=== PATIENT | male | born 1940 | race African-American/Black ===

== ENCOUNTER 2016-08-09 17:37 | Inpatient (IN) ==
[2016-08-09] MEDS ORDERED: SODIUM CHLORIDE 0.9% 500 ML IV STA (18:41)
[2016-08-09] MEDS ORDERED: ONDANSETRON 4 MG/2 ML VIAL IV STA (18:41)
[2016-08-09] MEDS ORDERED: PANTOPRAZOLE 40 MG VIAL IV STA (18:41)
--- NOTE | 2016-08-09 18:46 | EKG Report ---
Stationary ECG Study [facility] ER Test Date: 08/09/2016 6:11:18 PM Pat Name: ALYSSA RIVERA Department: Room: Gender: M Director Online [employer]: : 1940 Requested by: Kai Rodriguez Order Number: [id number] Reading MD: JOVANY ADAMS Intervals [place] Rate: 120 P: 66 ME: 173 QRS: 56 QRSD: 101 T: 79 QT: 342 QTc: 413 Interpretive Statements SINUS TACHYCARDIA MODERATE VOLTAGE CRITERIA FOR LVH Electronically Signed On 08-09-16 20:45:04 FLORAL DECORATOR by JOVANY ADAMS [email or web address]
[2016-08-09 18:49] LABS: Basophils % 0.4 % (0.0-0.8); Eosinophils % 0.2 % (0.00-10.9); Hematocrit 31.9 VOL% (42.0-52.0); Hemoglobin 10.7 GM/DL (14.0-18.0); Immature Granulocytes % 0.4 %; Immature Granulocytes Absolute 0.02 #; Lymphocytes # 1.9 10*3/uL (1.4-4.0); Lymphocytes % 35.1 % (21.2-54.2); Mean Corpuscular HGB Conc 33.5 GM/DL (32-36); Mean Corpuscular Hemoglobin 28 PG (27-34); Mean Corpuscular Volume 82.6 FL (87-102); Mean Platelet Volume 10.6 FL (9.6-12.0); Monocytes # 0.5 10*3/uL (0.11-0.8); Monocytes % 9.2 % (1.7-12.7); Neutrophils % 54.7 % (38.7-73.9); Platelet Count 282 T/CUMM (130-400); Red Blood Count 3.86 MC/CUMM (3.8-5.5); Red Cell Distribution Width 13.1 % (9.3-17.3); White Blood Count 5.5 T/CUMM (4-12)
[2016-08-09] MEDS ORDERED: ONDANSETRON 4 MG/2 ML VIAL ONE (18:49)
[2016-08-09] MEDS ORDERED: PANTOPRAZOLE 40 MG VIAL IV ONE (18:49)
--- NOTE | 2016-08-09 18:53 | Emergency Department Note ---
Jamil Lopez Brittany, am scribing for, and in the presence of, Kai Gonzalez MD 18:48. Lisa Lopez Phillip K, MD, personally performed the services described in this documentation, ascribed by Miesha Negron in my presence, and it is both accurate and complete [id number] . Arrival - Arrival ED Nursing Triage Note: SOB, ONSET LAST NIGHT ALSO HAVING ABD PAIN, PT HAS INDWELLING MACIEL DUE TO ENLARGED PROSTATE. PT TENDER OVER ENTIRE ABDOMEN Mode of Arrival: Wheelchair Limitations: No Limitations Source: Patient - History of Present Illness Onset (ago): day(s) (Started last night) Consistency: constant Severity: moderate <Kai Gonzalez - Last Filed: 08/09/16 18:53> <Carlton Mcpherson - Last Filed: 08/09/16 20:41> - Arrival Chief Complaint: Abdominal / Flank Pain Stated Complaint: KIDNEY BAG BURST Time Seen by Provider: 08/09/16 18:32 - History of Present Illness HPI Narrative: This is a 76 y/o black male,who presents to the ED with c/o abd pain which started last night. He states he has been nauseated but denies vomiting. He denies a fever, but notes chills. He has had a sore throat, mild cough and dyspnea with this. He states his last BM was 2 days ago. He states last week he was seen at [facility] and had an EGD preformed which was negative. He states he has had abd surgery for ulcers and a hernia. He has had a cholecystectomy, but no appendectomy. Pt has no other complaints/pain in the ED at this time. Pt has a PMHx of CHF, CAD, HTN, NIDDM, thyroid disorder, COPD, renal failure, prostate problems, and back/neck problems. Pt has had a cardiac cath with stents, hernia repair, abd surgery, and cholectstectomy. Pt has a family medical Hx of cancer, diabetes, HTN, and stroke. Pt denies a social Hx. (Miesha Negron) This is a 76 y/o black male,who presents to the ED with c/o abd pain which started last night. He states he has been nauseated but denies vomiting. He denies a fever, but notes chills. He has had a sore throat, mild cough and dyspnea with this. He states his last BM was 2 days ago. He states last week he was seen at [facility] and had an EGD preformed which was negative. He states he has had abd surgery for ulcers and a hernia. He has had a cholecystectomy, but no appendectomy. Pt has no other complaints/pain in the ED at this time. Pt has a PMHx of CHF, CAD, HTN, NIDDM, thyroid disorder, COPD, renal failure, prostate problems, and back/neck problems. Pt has had a cardiac cath with stents, hernia repair, abd surgery, and cholectstectomy. Pt has a family medical Hx of cancer, diabetes, HTN, and stroke. Pt denies a social Hx. (Kai Gonzalez) Allergies/Adverse Reactions: Allergies Allergy/AdvReac Type Severity Reaction Status Date / Time No Known Allergies Allergy Verified 08/09/16 17:56 Home Medications: Home Medications Medication Instructions Recorded Confirmed Type Aspirin [Ecotrin] 81 mg PO QAM 11/17/15 08/09/16 History Levothyroxine Tab [Synthroid Tab] 50 mcg PO DAILY 11/17/15 08/09/16 History Mirtazapine 7.5 mg PO BEDTIME 04/19/16 08/09/16 History miSOPROStol [Misoprostol] 200 mcg PO QID 04/19/16 08/09/16 History Insulin NPH [HumuLIN N] 15 unit SUBCUT BID W/MEALS 05/01/16 08/09/16 History cloNIDine TAB [Catapres Tab] 0.1 mg PO BID 05/01/16 08/09/16 History hydrALAZINE TAB [Apresoline Tab] 100 mg PO TID 05/01/16 08/09/16 History Tamsulosin [Flomax] 0.4 mg PO BID #60 capsule 05/03/16 08/09/16 Rx Pantoprazole Tab [Protonix Tab] 40 mg PO DAILY #30 tablet 05/25/16 08/09/16 Rx Benzonatate [Benzonatate] 100 mg PO TID PRN 08/05/16 08/09/16 History Ciprofloxacin Tab [Cipro Tab] 500 mg PO BID #14 tablet 08/05/16 08/09/16 Rx Furosemide [Furosemide] 40 mg PO DAILY 08/05/16 08/09/16 History LORazepam TAB [Ativan Tab] 0.5 mg PO BID #10 tablet 08/05/16 08/09/16 Rx Lisinopril [Lisinopril] 20 mg PO DAILY 08/05/16 08/09/16 History Nitroglycerin [Nitrostat] 0.3 mg SL Q5M PRN 08/05/16 08/09/16 History Review of System - Review of System 12 point system: reviewed and no additional remarkable complaints except as stated - Review of System Constitutional: Present: chills. Absent: fever Respiratory: Present: cough (Mild cough) Cardiovascular: Present: other (Dyspnea) Gastrointestinal: Present: abdominal pain, nausea, constipation. 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 urinary retention) Genitourinary: History of: Prostate Problems (BPH) Gastrointestinal: History of: Hemorrhoids Musculoskeletal: History of: Back/Neck Problems (back pain) Other: History of: Eczema (face) - Surgical History Cardiac Surgeries: Sugical HX of: Cardiac Catheterization Abdominal Surgeries: Surgical HX of: Abdominal Surgery (exploratory lap 2015), Cholecystectomy (2015) - Family History Family History: Reports;: Family Cancer, Family Diabetes (mother type 2), Family Hypertension (mother), Family Stroke (mother) - Social History Smoking Status: Never smoker <Kai Gonzalez - Last Filed: 08/09/16 18:53> Exam - General General appearance: alert, in distress - Head Head exam: Present: atraumatic - Eye Eye exam: Present: normal appearance, PERRL, EOMI - ENT ENT exam: Present: normal exam, TM's normal bilaterally - Neck Neck exam: Present: normal inspection - Chest Chest inspection: Present: normal inspection - Respiratory Respiratory exam: Present: normal lung sounds bilaterally, other (increased respiratory rate). Absent: rales - Cardiovascular Cardiovascular exam: Present: normal rhythm, tachycardia. Absent: murmur, rubs - Abdominal Exam Abdominal exam: Present: soft, tenderness (left upper and lower quadrant), rebound, normal bowel sounds. Absent: distention, guarding - Rectal Exam Rectal exam: Present: heme (-) stool - Extremities Exam Extremities exam: Present: normal inspection - Back Exam Back exam: Present: normal inspection - Neurological Exam Neurological exam: Present: alert, oriented X3, CN II-XII intact. Absent: motor sensory deficit - Psychiatric Psychiatric exam: Present: normal affect, normal mood - Skin Skin exam: Present: warm, dry <Kai Gonzalez - Last Filed: 08/09/16 18:53> Vital Signs: Vital Signs Temperature 98.3 F 08/09/16 18:15 Pulse Rate 123 H 08/09/16 18:15 Respiratory Rate 32 H 08/09/16 18:15 Blood Pressure 125/91 08/09/16 18:15 O2 Sat by Pulse Oximetry 99 08/09/16 17:52 Course <Kai Gonzalez - Last Filed: 08/09/16 18:53> - Consultations Time: 20:33 <Carlton Mcpherson - Last Filed: 08/09/16 20:41> Course Narrative: Patient signed out to Dr. Mcpherson. (Kai Gonzalez) - Consultations Consultation #1: Dr. Rachel Rodriguez will evaluate and admit the patient to Dr. Oleg herring. ( Carlton Mcpherson) Results - Labs CBC & BMP: 08/09/16 18:16 Lab Results: I have reviewed the patients labs <Kai Gonzalez - Last Filed: 08/09/16 18:53> - Labs CBC & BMP: 08/09/16 18:16 08/09/16 18:16 Lab Results: I have reviewed the patients labs <Carlton Mcpherson - Last Filed: 08/09/16 20:41> - Labs Labs: Lab Results WBC 5.5 T/CUMM (4-12) 08/09/16 18:16 RBC 3.86 MC/CUMM (3.8-5.5) 08/09/16 18:16 Hgb 10.7 GM/DL (14.0-18.0) L 08/09/16 18:16 Hct 31.9 VOL% (42.0-52.0) L 08/09/16 18:16 MCV 82.6 FL (87-102) L 08/09/16 18:16 MCH 28 PG (27-34) 08/09/16 18:16 MCHC 33.5 GM/DL (32-36) 08/09/16 18:16 RDW 13.1 % (9.3-17.3) 08/09/16 18:16 Plt Count 282 T/CUMM (130-400) 08/09/16 18:16 MPV 10.6 FL (9.6-12.0) 08/09/16 18:16 Neut % (Auto) 54.7 % (38.7-73.9) 08/09/16 18:16 Lymph % (Auto) 35.1 % (21.2-54.2) 08/09/16 18:16 [place] % (Auto) 9.2 % (1.7-12.7) 08/09/16 18:16 Eos % (Auto) 0.2 % (0.00-10.9) 08/09/16 18:16 Baso % (Auto) 0.4 % (0.0-0.8) 08/09/16 18:16 Neut # (Auto) 3.0 10*3/uL (1.4-7.4) 08/09/16 18:16 Lymph # (Auto) 1.9 10*3/uL (1.4-4.0) 08/09/16 18:16 [place] # (Auto) 0.5 10*3/uL (0.11-0.8) 08/09/16 18:16 Eos # (Auto) 0.0 10*3/uL (0.0-0.87) 08/09/16 18:16 Baso # (Auto) 0.0 10*3/uL (0.0-0.2) 08/09/16 18:16 Immature Gran % 0.4 % 08/09/16 18:16 Nucleated RBC % 0.0 /100WBC 08/09/16 18:16 Immature Gran # 0.02 # 08/09/16 18:16 Nucleated RBCs # 0.00 10*3/uL 08/09/16 18:16 Sodium 127 MMOL/L (136-145) L 08/09/16 18:16 Potassium 3.9 MMOL/L (3.5-5.1) 08/09/16 18:16 Chloride 97 MMOL/L (98-107) L 08/09/16 18:16 Carbon Dioxide 15 MMOL/L (21-32) L 08/09/16 18:16 Anion Gap 18.9 MMOL/L (5.0-15.0) H 08/09/16 18:16 BUN 39 MG/DL (7-18) H 08/09/16 18:16 Creatinine 3.20 MG/DL (0.70-1.30) H 08/09/16 18:16 GFR Calculation 21 ML/MIN 08/09/16 18:16 BUN/Creatinine Ratio 12.00 RATIO (6.00-20.00) 08/09/16 18:16 Glucose 320 MG/DL (74-106) H 08/09/16 18:16 Calculated Osmolality 275.2 MOS/KG (273-304) 08/09/16 18:16 Calcium 9.0 MG/DL (8.5-10.1) 08/09/16 18:16 Magnesium 1.6 MG/DL (1.8-2.4) L 08/09/16 18:16 Total Bilirubin 0.60 MG/DL (0.2-1.0) 08/09/16 18:16 AST 13 U/L (0-37) 08/09/16 18:16 ALT 12 U/L (16-61) L 08/09/16 18:16 Alkaline Phosphatase 96 U/L (45-117) 08/09/16 18:16 Total Protein 6.8 G/DL (6.4-8.3) 08/09/16 18:16 Albumin 3.6 G/DL (3.4-5.0) 08/09/16 18:16 Globulin 3.2 G/DL (2.3-3.5) 08/09/16 18:16 Albumin/Globulin Ratio 1.1 RATIO (1.1-2.2) 08/09/16 18:16 Lipase 397.0 U/L (73-393) H 08/09/16 18:16 Urine Color Yellow (Yellow) 08/09/16 18:16 Urine Appearance Cloudy (Clear) 08/09/16 18:16 Urine pH 5.0 (4.5-8.0) 08/09/16 18:16 Ur Specific [place] 1.004 (1.001-1.035) 08/09/16 18:16 Urine Protein 30 MG/DL 08/09/16 18:16 Urine Glucose (UA) Negative mg/dL (Negative) 08/09/16 18:16 Urine Ketones Negative mg/dL (Negative) 08/09/16 18:16 Urine Blood Large mg/dL (Negative) 08/09/16 18:16 Urine Nitrate Negative (Negative) 08/09/16 18:16 Urine Bilirubin Negative mg/dL (Negative) 08/09/16 18:16 Urine Urobilinogen < 2.0 EU/DL (0.2-1.0) H 08/09/16 18:16 Urine Leukocytes Large [place]/ul (Negative) H 08/09/16 18:16 Urine RBC 83 /HPF (0-4) 08/09/16 18:16 Urine WBC 127 /HPF (0-6) 08/09/16 18:16 Urine WBC Clumps Many /HPF (<1) 08/09/16 18:16 Urine Bacteria Few /HPF (Few) 08/09/16 18:16 Ur Culture Indicated? Results to follow 08/09/16 18:16 (Carlton Mcpherson) Disposition <Kai Gonzalez - Last Filed: 08/09/16 18:53> Case discussed with: patient, patient's family Time of Disposition: 20:39 <Carlton Mcpherson - Last Filed: 08/09/16 20:41> Clinical Impression: BPH (benign prostatic hypertrophy) with urinary retention, Chronic kidney disease, stage III (moderate), Diabetes mellitus, Congestive heart failure, Cystitis Disposition: Still a Patient Condition: Stable
[2016-08-09 18:57] LABS: Apearance,Urine CLOUDY (Clear); Bacteria,Urine Few /HPF (Few); Bilirubin,Urine Negative (Negative); Blood, Urine Large mg/dL (Negative); Glucose,Urine (UA) Negative (Negative); Ketones,Urine Negative (Negative); Nitrite,Urine Negative (Negative); Protein,Urine 30 MG/DL; RBC,Urine 83 /HPF (0-4); Urine Color Yellow (Yellow); Urine Specific Gravity 1.004 (1.001-1.035); Urine Urobilinogen < 2.0 EU/DL (0.2-1.0); WBC,Urine 127 /HPF (0-6)
[2016-08-09 19:01] LABS: Albumin 3.6 G/DL (3.4-5.0); Bilirubin,Total 0.6 MG/DL (0.2-1.0); Magnesium 1.6 MG/DL (1.8-2.4); Osmolality,Calculated 275.2 MOS/KG (273-304); Potassium 3.9 MMOL/L (3.5-5.1); Total Protein 6.8 G/DL (6.4-8.3)
--- NOTE | 2016-08-09 20:01 | CT Report ---
Referring physician: Carlton Mcpherson EXAM: CT abdomen and pelvis without contrast DATE: August 09, 2016 COMPARISON: CT abdomen and pelvis August 05, 2016 and May 10, 2016 REASON: Generalized abdominal pain with nausea TECHNIQUE: Axial images of the abdomen and pelvis were obtained without the use of contrast. Coronal and sagittal reformatted images were also provided. Total DLP is 287.7 mGy*cm. FINDINGS: Lower thorax: Density is seen at the mitral valve and may represent calcification or a surgical device. There are also surgical clips at the gastroesophageal junction and a small hiatal hernia. A 0.2 cm nodule is again seen at the posterior basal portion of the left lower lobe on image 2. It is stable and favored to be benign. ABDOMEN: Liver: There are few calcified granulomas within the liver. No suspicious hepatic lesion is seen on this noncontrast study. Gallbladder and bile ducts: The patient is status post cholecystectomy. The common bile duct is largely obscured. There is minimal prominence of the intrahepatic bile ducts, which could be related to the cholecystectomy status. Correlation with liver function studies would be helpful. Pancreas: Unremarkable. Spleen: Unremarkable. Adrenals: There is nonspecific mild stable thickening of the adrenal glands. Kidneys and ureters: No hydronephrosis is present. There is a 0.3 cm nonobstructing stone at the lower pole of the left kidney. No ureteral calculi are identified. PELVIS: Bladder: A Pond catheter is again present. There is mild diffuse bladder wall thickening. This could be secondary to poor distention, cystitis or chronic bladder obstruction. The degree of thickening is less prominent, but this could be related to differences in bladder distention. Reproductive: The prostate is again enlarged. ABDOMEN AND PELVIS: Bowel: There is no evidence of bowel obstruction, and no definite bowel inflammation is seen. On the prior study of August 05, 2016, there were mildly prominent loops of proximal small bowel, but this is not seen today. Appendix: The appendix is normal in size, and there is no evidence of appendicitis. Vasculature: The abdominal aorta is slightly ectatic but stable. There is also mild to moderate scattered calcified plaque at the arteries. Peritoneum: No free air or ascites is seen. Lymph nodes: No suspicious adenopathy is seen. Abdominal/pelvic wall: There is mild anasarca, and surgical scarring is suspected near the umbilicus. There is also minimally prominent fat within the inguinal canals bilaterally. Bones: There is degenerative change at the spine. No acute osseous process is seen. IMPRESSION: 1. There is mild diffuse bladder wall thickening, which could represent cystitis, poor distention or chronic bladder outlet obstruction. The degree of bladder wall thickening is less prominent today, but this could be related to differences in bladder distention. 2. Prostamegaly. 3. Small nonobstructing left renal calculus. 4. The intrahepatic bile ducts are minimally prominent but stable. This is likely related to cholecystectomy status, but correlation with liver function studies would be helpful. The CT exam was performed using one or more of the following dose reduction techniques: Automated exposure control and adjustment of the mA and/or kV according to patient size. PROCEDURE INTERPRETED AT [facility] DEPARTMENT OF RADIOLOGY Final Report Signed by: Dr. Lalita Bermudez
[2016-08-09] MEDS ORDERED: MORPHINE 2 MG/1 ML SYRINGE IV PRN (20:41)
[2016-08-09] MEDS ORDERED: ACETAMINOPHEN 325 MG TABLET PO PRN (20:41)
[2016-08-09] MEDS ORDERED: ONDANSETRON 4 MG/2 ML VIAL IV PRN (20:41)
[2016-08-09] MEDS ORDERED: GLUCAGON 1 MG VIAL IM PRN (20:41)
[2016-08-09] MEDS ORDERED: DEXTROSE 50% 25 GM/50 ML VIAL IV PRN (20:41)
[2016-08-09] MEDS ORDERED: MAGNESIUM SULF RIDER 2 GM in PREMIX 1 EACH IV STA (20:43)
[2016-08-09] MEDS ORDERED: LEVOFLOXACIN INJ 750 MG in PREMIX 1 EACH IV STA (20:43)
[2016-08-09] MEDS ORDERED: SODIUM CHLORIDE 0.45% 1,000 ML IV SCH (21:00)
[2016-08-09] MEDS ORDERED: LEVOFLOXACIN INJ 150 ML IV ONE (21:13)
[2016-08-10] MEDS: DOCUSATE SODIUM 100 MG CAPSULE PO SCH ×3 (01:22→20:50)
[2016-08-10] MEDS: INSULIN LISPRO 100 UNIT/ML SUBCUT SCH ×5 (02:26→20:53)
[2016-08-10] MEDS ORDERED: PANTOPRAZOLE 40 MG TABLET PO SCH (09:00)
[2016-08-10] MEDS ORDERED: BENZONATATE 100 MG CAPSULE PO PRN (09:43)
[2016-08-10] MEDS ORDERED: NITROGLYCERIN SL 0.4 MG TABLET SL PRN (09:43)
--- NOTE | 2016-08-10 09:54 | Hospitalist History & Physical ---
<Coral Boyd - Last Filed: 08/10/16 09:50> Assessment and Plan (1) Hypertension Status: Chronic Assessment and plan: Home medications of Hydralazine and Clonidine po BID continued. Hold Lisinopril for now. Repeat BMP in am. Current Visit: No (2) Congestive heart failure Status: Chronic Assessment and plan: Lasix to be held for now. Current Visit: Yes Qualifiers: Congestive heart failure type: unspecified congestive heart failure type (3) Uncontrolled diabetes mellitus Status: Acute Assessment and plan: Humulin N 15 units BID , Bedside glucose AC and HS. Sliding scale insulin AC and HS. Current Visit: No Qualifiers: Diabetes mellitus type: type 2 Diabetes mellitus complication status: without complication (4) BPH (benign prostatic hypertrophy) with urinary retention Status: Chronic Assessment and plan: Hill cath in place. Urology consult. Current Visit: Yes (5) Chronic kidney disease, stage III (moderate) Status: Chronic Assessment and plan: Repeat BMP in am. BUN/Cr 39/3.20 at present. Current Visit: Yes (6) Abdominal pain Status: Acute Assessment and plan: Ct of abdomen performed. Cystitis and enlarged prostate identified. Urology consulted. Will repeat lipase amylase and lft's. Urine cultures resitent to Cipro so changed antibiotics to Ampicillin. Current Visit: No (7) Cystitis Status: Acute Assessment and plan: Ampicillin IV. Urology consult. Current Visit: Yes History of Present Illness History of present illness: Mr. Aguirre is a 76 year old male with PMHx of CHF, CAD, HTN, NIDDM, thyroid disorder, COPD, renal failure, prostate problems, and back/neck problems who presents to the ED with c/o abd pain which started last night. He states he has been nauseated but denies vomiting. He denies a fever, but notes chills. He has had a sore throat, mild cough and dyspnea with this. He states his last BM was 2 days ago. He states last week he was seen at [facility] and had an EGD preformed which was negative. He states he feels that his "food is not going down". He states he "feels bad". He has been on home O2 in the past but not recently. He is currently using O2 in the hospital. He has complaint of his feet being cold even though he has on SANDY and socks with two blankets. Home Medications Medication Instructions Recorded Confirmed Type Aspirin [Ecotrin] 81 mg PO QAM 11/17/15 08/09/16 History Levothyroxine Tab [Synthroid Tab] 50 mcg PO DAILY 11/17/15 08/09/16 History Mirtazapine 7.5 mg PO BEDTIME 04/19/16 08/09/16 History miSOPROStol [Misoprostol] 200 mcg PO QID 04/19/16 08/09/16 History Insulin NPH [HumuLIN N] 15 unit SUBCUT BID W/MEALS 05/01/16 08/09/16 History cloNIDine TAB [Catapres Tab] 0.1 mg PO BID 05/01/16 08/09/16 History hydrALAZINE TAB [Apresoline Tab] 100 mg PO TID 05/01/16 08/09/16 History Tamsulosin [Flomax] 0.4 mg PO BID #60 capsule 05/03/16 08/09/16 Rx Pantoprazole Tab [Protonix Tab] 40 mg PO DAILY #30 tablet 05/25/16 08/09/16 Rx Benzonatate [Benzonatate] 100 mg PO TID PRN 08/05/16 08/09/16 History Ciprofloxacin Tab [Cipro Tab] 500 mg PO BID #14 tablet 08/05/16 08/09/16 Rx Furosemide [Furosemide] 40 mg PO DAILY 08/05/16 08/09/16 History LORazepam TAB [Ativan Tab] 0.5 mg PO BID #10 tablet 08/05/16 08/09/16 Rx Lisinopril [Lisinopril] 20 mg PO DAILY 08/05/16 08/09/16 History Nitroglycerin [Nitrostat] 0.3 mg SL Q5M PRN 08/05/16 08/09/16 History Allergies Allergy/AdvReac Type Severity Reaction Status Date / Time No Known Allergies Allergy Verified 08/09/16 17:56 Medical,Surgical,& Family Hx - Medical History Cardio: History of: CHF, CAD, Hypertension, Cardiovascular Problems (stents placed 2013) Psychological: History of: 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 Name of insulin unknown), Diabetes Mellitus (NIDDM), Thyroid Disorder ( hypothyroidism) Rheumatology: History of;: Rheumatoid Arthritis Respiratory: History of: COPD Renal: History of: Renal Failure (stage 3) Comment Only: Renal Problems (trouble voiding. urinary retention) Genitourinary: History of: Prostate Problems (BPH) Gastrointestinal: History of: Hemorrhoids Musculoskeletal: History of: Back/Neck Problems (back pain) Other: History of: Eczema (face) - Surgical History Cardiac Surgeries: Sugical HX of: Cardiac Catheterization Abdominal Surgeries: Surgical HX of: Abdominal Surgery (exploratory lap 2016), Cholecystectomy (2016), EGD (2017 (1 week ago)), Hernia Repair - Family History Family History: Reports;: Family Cancer, Family Diabetes (mother type 2), Family Hypertension (mother), Family Stroke (mother) - Social History Smoking Status: Never smoker Frequency of Alcohol Use: None Type of Drug Use: None - Constitutional Constitutional: Absent: chills, fever(s) - EENT Ears: Absent: decreased hearing Nose, mouth and throat: Present: sore throat. Absent: dysphagia, headache(s), nasal congestion - Cardiovascular Cardiovascular: Present: dyspnea. Absent: chest pain at rest, chest pain with activity, diaphoresis - Respiratory Respiratory: Present: dyspnea. Absent: cough, wheezing - Gastrointestinal Gastrointestinal: Present: abdominal pain, dysphagia. Absent: diarrhea, heartburn, nausea - Genitourinary Genitourinary: Present: dysuria - Neurological Neurological: Absent: confusion, dizziness, headache(s) - Psychiatric Psychiatric: Present: anxiety. Absent: confusion Exam - Constitutional Vitals: Period Temp Pulse Resp BP Sys/Treadwell Pulse Ox Last 24 Hr 97.7 F-98.1 F 88-102 20-24 135-185/66-100 99-100 General appearance: no acute distress - Head Head exam: Present: normocephalic - Eye Eye exam: Present: EOMI Pupils: Present: SAM - ENT ENT exam: Present: normal exam - Neck Neck exam: Present: normal inspection. Absent: lymphadenopathy, thyromegaly - Respiratory Respiratory exam: Present: clear to auscultation bilaterally. Absent: chest wall tenderness, rales (Increased respiratory rate without use of accessory muscles. ), rhonchi, wheezes - Cardiovascular Cardiovascular exam: Present: regular rate and rhythm - GI/Abdominal GI/Abdominal exam: Present: soft. Absent: distended, guarding, tenderness, rebound - Extremities Exam Extremities exam: Present: normal inspection. Absent: calf tenderness, edema - Back Exam Back exam: Present: positive straight leg raise - Neurological Exam Neurological exam: Present: alert, oriented X3 - Psychiatric Psychiatric exam: Present: normal affect Results - Labs CBC & BMP: 08/09/16 18:16 08/09/16 18:16 - Diagnostic Findings Procedure: CT Abdomen and Pelvis: report reviewed by me <Cecy Mehta - Last Filed: 08/10/16 12:25> Assessment and Plan (1) Cystitis Status: Acute Assessment and plan: Stop Levaquin/Cipro. Start ampicillin 1 g IV every 8. Current Visit: Yes (2) Diabetes mellitus Status: Acute Current Visit: Yes (3) BPH (benign prostatic hypertrophy) with urinary retention Status: Chronic Current Visit: Yes (4) Chronic kidney disease, stage III (moderate) Status: Chronic Current Visit: Yes (5) Acute retention of urine Status: Acute Assessment and plan: hill cath in place with clear yellow urine Current Visit: No (6) Acute on chronic renal failure Status: Resolved Current Visit: No History of Present Illness Chief complaint: abdominal pain History of present illness: Mr. Aguirre is a 76 year old male presented to the emergency department last night with abdominal pain. He was found to have cystitis. He was admitted for IV antibiotics due to resistance to oral antibiotic medications. The patient failed outpatient antibiotics with Cipro. Urine culture on file from 2016 with enterococcus faecalis sensitive to ampicillin resistant to ciprofloxacin. The patient was initially admitted to Dr. Dejesus"s service- by mistake, and is now transferred to my service on the hospitalist team. The patient has a history of a enlarged prostate and bladder obstruction requiring Hill catheter placement. He is followed by urology Dr. Merino. He was supposed to have an appointment in his office today but was admitted last night. This patient was independently seen and examined by me today. I reviewed the content of this history and physical as documented by the nurse practitioner. The patient will be started on IV antibiotics for his urinary tract infection and cystitis. A consultation will be placed for urology Dr. Merino for follow -up. Medical,Surgical,& Family Hx - Social History Functional capacity: independent ambulation Exam - Constitutional Vitals: Period Temp Pulse Resp BP Sys/Treadwell Pulse Ox Last 24 Hr 97.2 F-98.1 F 88-102 18-24 135-185/66-100 99-100 - GI/Abdominal GI/Abdominal exam: Present: normal bowel sounds, tenderness (epigastric region. ), soft, other (Hill catheter in place with yellow clear urine noted.). Absent : rebound - Neurological Exam Neurological exam: Present: alert, oriented X3 - Psychiatric Psychiatric exam: Present: normal affect, normal mood - Skin Skin exam: Present: normal color, warm, dry Results - Labs CBC & BMP: 08/09/16 18:16 08/10/16 10:03 Lab Results: I have reviewed the past 24 hour labs
[2016-08-10 10:57] LABS: Calcium 8.3 MG/DL (8.5-10.1); Magnesium 2.3 MG/DL (1.8-2.4); Osmolality,Calculated 284.4 MOS/KG (273-304); Potassium 3.7 MMOL/L (3.5-5.1)
[2016-08-10 11:38] LABS: Albumin 2.9 G/DL (3.4-5.0); Bilirubin,Direct 0.1 MG/DL (0.0-0.20); Bilirubin,Indirect 0.6 MG/DL (0.0-1.0); Bilirubin,Total 0.7 MG/DL (0.2-1.0); Total Protein 5.7 G/DL (6.4-8.3)
[2016-08-10] MEDS: AMPICILLIN INJ 1,000 MG in SODIUM CHLORIDE 0.9% 100 ML IV SCH ×2 (12:56→20:54)
[2016-08-10] MEDS: LORazepam 0.5 MG TABLET PO SCH ×2 (12:57→20:51)
[2016-08-10] MEDS: miSOPROStol 200 MCG TABLET PO SCH ×3 (12:57→20:57)
[2016-08-10] MEDS: SODIUM CHLORIDE 0.9% 1,000 ML IV SCH ×3 (16:40→23:56)
[2016-08-10] MEDS: INSULIN NPH 100 UNIT/ML SUBCUT SCH (17:18)
--- NOTE | 2016-08-10 18:04 | Urology Consultation ---
Assessment and Plan - Time spent with patient Time spent with patient: Greater than 30 minutes (1) BPH (benign prostatic hypertrophy) with urinary retention Status: Chronic Assessment and plan: We will remove the Pond catheter in the morning performing a catheterization as needed. He needs to ambulate as much as he can. May require cystoscopy in the future. Current Visit: Yes History of Present Illness - Data of Consult Patient: known to practice within the last 3 years Consult date: 08/10/16 Requesting Physician: Cecy Mehta - Consult Narrative Reason for consult: Urinary retention with UTI History of present illness: Mr. Aguirre is a 76 year old male who I saw for the first time about a month ago. He had been followed by Dr. Alexis and has had what sounds like a transurethral microwave therapy. But he is having significant voiding issues. I placed him on Flomax twice a day and he was scheduled to see me actually today in the office with some urodynamics. He obviously has had multiple issues was in retention had a Pond catheter had a urinary tract infection. He is now admitted multiple issues 1 of what is a urinary tract infection and urinary retention. The patient does not ambulate much. He has bedsores. This contributes to his voiding issues. He also has chronic constipation which contributes to his voiding dysfunction. I recommend we remove the Pond in the morning and perform intermittent catheterization as needed. CC: Cecy Mehta MD - Home Medications and Allergies Home Medications: Home Medications Medication Instructions Recorded Confirmed Type Aspirin [Ecotrin] 81 mg PO QAM 11/17/15 08/09/16 History Levothyroxine Tab [Synthroid Tab] 50 mcg PO DAILY 11/17/15 08/09/16 History Mirtazapine 7.5 mg PO BEDTIME 04/19/16 08/09/16 History miSOPROStol [Misoprostol] 200 mcg PO QID 04/19/16 08/09/16 History Insulin NPH [HumuLIN N] 15 unit SUBCUT BID W/MEALS 05/01/16 08/09/16 History cloNIDine TAB [Catapres Tab] 0.1 mg PO BID 05/01/16 08/09/16 History hydrALAZINE TAB [Apresoline Tab] 100 mg PO TID 05/01/16 08/09/16 History Tamsulosin [Flomax] 0.4 mg PO BID #60 capsule 05/03/16 08/09/16 Rx Pantoprazole Tab [Protonix Tab] 40 mg PO DAILY #30 tablet 05/25/16 08/09/16 Rx Benzonatate [Benzonatate] 100 mg PO TID PRN 08/05/16 08/09/16 History Ciprofloxacin Tab [Cipro Tab] 500 mg PO BID #14 tablet 08/05/16 08/09/16 Rx Furosemide [Furosemide] 40 mg PO DAILY 08/05/16 08/09/16 History LORazepam TAB [Ativan Tab] 0.5 mg PO BID #10 tablet 08/05/16 08/09/16 Rx Lisinopril [Lisinopril] 20 mg PO DAILY 08/05/16 08/09/16 History Nitroglycerin [Nitrostat] 0.3 mg SL Q5M PRN 08/05/16 08/09/16 History Allergies/Adverse Reactions: Allergies Allergy/AdvReac Type Severity Reaction Status Date / Time No Known Allergies Allergy Verified 08/09/16 17:56 12 point system: reviewed and no additional remarkable complaints except as stated Exam - Constitutional Vitals: Period Temp Pulse Resp BP Sys/Treadwell Pulse Ox Last 24 Hr 96.9 F-98.1 F 88-102 18-24 115-185/61-100 99-100 - Genitourinary Genitourinary: scrotum without lesions, cysts, edema or rash, penis with no lesions or discharge (Pond in place), diffusely enlarged prostate without tenderness Results - Labs CBC & BMP: 08/09/16 18:16 08/10/16 10:03 Lab Results: I have reviewed the past 24 hour labs - Diagnostic Findings Procedure: Abdominal x-ray: report reviewed by me
[2016-08-10] MEDS: cloNIDine 0.1 MG TABLET PO SCH (20:49)
[2016-08-10] MEDS: TAMSULOSIN 0.4 MG CAPSULE PO SCH (20:50)
[2016-08-10] MEDS: MIRTAZAPINE 15 MG TABLET PO SCH (20:51)
[2016-08-11] MEDS: AMPICILLIN INJ 1,000 MG in SODIUM CHLORIDE 0.9% 100 ML IV SCH ×3 (03:44→20:54)
[2016-08-11 05:53] LABS: Calcium 8.2 MG/DL (8.5-10.1); Osmolality,Calculated 278.8 MOS/KG (273-304); Potassium 4.2 MMOL/L (3.5-5.1)
[2016-08-11] MEDS: SODIUM CHLORIDE 0.9% 1,000 ML IV SCH (07:06)
--- NOTE | 2016-08-11 07:14 | Urology Progress Note ---
Assessment and Plan (1) BPH (benign prostatic hypertrophy) with urinary retention Status: Chronic Assessment and plan: We will remove the Pond catheter in the morning performing a catheterization as needed. He needs to ambulate as much as he can. May require cystoscopy in the future. Current Visit: Yes Urology - PN: Subj Interval history: Pond is out we will perform intermittent catheterization as needed. Is on his Flomax. We will give voiding trial. Patient needs to ambulate as much as he can. Exam - Constitutional Vitals: Period Temp Pulse Resp BP Sys/Treadwell Pulse Ox Last 24 Hr 96.9 F-98.0 F 85-98 16-20 115-180/60-94 100-100 Results - Labs CBC & BMP: 08/09/16 18:16 08/11/16 03:22
[2016-08-11] MEDS: INSULIN LISPRO 100 UNIT/ML SUBCUT SCH ×4 (08:12→23:17)
[2016-08-11] MEDS: ASPIRIN EC 81 MG TABLET PO SCH (09:27)
[2016-08-11] MEDS: MAGNESIUM HYDROXIDE SUSP 30 ML UDCUP PO SCH (09:27)
[2016-08-11] MEDS: INSULIN NPH 100 UNIT/ML SUBCUT SCH ×2 (09:27→17:04)
[2016-08-11] MEDS: miSOPROStol 200 MCG TABLET PO SCH ×4 (09:28→20:53)
[2016-08-11] MEDS: LORazepam 0.5 MG TABLET PO SCH ×2 (09:28→20:53)
[2016-08-11] MEDS: TAMSULOSIN 0.4 MG CAPSULE PO SCH ×2 (09:28→20:53)
[2016-08-11] MEDS: DOCUSATE SODIUM 100 MG CAPSULE PO SCH ×2 (09:28→20:53)
[2016-08-11] MEDS: LEVOTHYROXINE 50 MCG TABLET PO SCH (09:28)
[2016-08-11] MEDS: PANTOPRAZOLE 40 MG TABLET PO SCH (09:28)
[2016-08-11] MEDS: cloNIDine 0.1 MG TABLET PO SCH ×2 (09:28→20:53)
--- NOTE | 2016-08-11 15:18 | Hospitalist Progress Note ---
Assessment and Plan (1) Cystitis Status: Acute Assessment and plan: Stop Levaquin/Cipro. Start ampicillin 1 g IV every 8. Current Visit: Yes (2) Diabetes mellitus Status: Acute Current Visit: Yes (3) BPH (benign prostatic hypertrophy) with urinary retention Status: Chronic Current Visit: Yes (4) Chronic kidney disease, stage III (moderate) Status: Chronic Current Visit: Yes (5) Acute retention of urine Status: Resolved Assessment and plan: hill cath removed patient will require intermittent straight cath Current Visit: No (6) Acute on chronic renal failure Status: Resolved Assessment and plan: Cr back to baseline Current Visit: No (7) Constipation Status: Acute Assessment and plan: add enema Current Visit: Yes Qualifiers: Constipation type: slow transit constipation Qualified Code(s): K59.01 - Slow transit constipation Hospitalist: Subjective Interval history: Patient seen and examined. Urology consult reviewed. Hill catheter removed. Patient will need to do self caths periodically. He is receiving ampicillin for his urinary tract infection. Renal function is back to baseline. Sodium has improved. Plan for discharge home tomorrow. Exam - Constitutional Vitals: Period Temp Pulse Resp BP Sys/Treadwell Pulse Ox Last 24 Hr 96.9 F-98.0 F 81-96 16-20 115-180/60-94 100-100 General appearance: no acute distress - Head Head exam: Present: normal inspection, normocephalic - Eye Eye exam: Present: EOMI Pupils: Present: SAM - Respiratory Respiratory exam: Present: clear to auscultation bilaterally - Cardiovascular Cardiovascular exam: Present: regular rate and rhythm - GI/Abdominal GI/Abdominal exam: Present: normal bowel sounds, soft. Absent: tenderness, rebound - Extremities Exam Extremities exam: Absent: edema - Neurological Exam Neurological exam: Present: alert, oriented X3 - Psychiatric Psychiatric exam: Present: normal affect, normal mood - Skin Skin exam: Present: normal color, warm, dry Results - Labs CBC & BMP: 08/09/16 18:16 08/11/16 03:22 Lab Results: I have reviewed the past 24 hour labs
[2016-08-11] MEDS ORDERED: SODIUM PHOSPHATE ENEMA 133 ML BOTTLE RECTAL ONE (16:00)
[2016-08-11] MEDS: MIRTAZAPINE 15 MG TABLET PO SCH (20:52)
[2016-08-12] MEDS: AMPICILLIN INJ 1,000 MG in SODIUM CHLORIDE 0.9% 100 ML IV SCH ×3 (04:29→21:07)
[2016-08-12] MEDS: INSULIN LISPRO 100 UNIT/ML SUBCUT SCH ×4 (08:52→21:10)
[2016-08-12] MEDS: INSULIN NPH 100 UNIT/ML SUBCUT SCH ×2 (08:53→18:03)
[2016-08-12] MEDS: MAGNESIUM HYDROXIDE SUSP 30 ML UDCUP PO SCH (08:56)
[2016-08-12] MEDS: LEVOTHYROXINE 50 MCG TABLET PO SCH (08:57)
[2016-08-12] MEDS: DOCUSATE SODIUM 100 MG CAPSULE PO SCH ×2 (08:57→21:07)
[2016-08-12] MEDS: miSOPROStol 200 MCG TABLET PO SCH ×4 (08:57→21:07)
[2016-08-12] MEDS: TAMSULOSIN 0.4 MG CAPSULE PO SCH ×2 (08:57→21:07)
[2016-08-12] MEDS: cloNIDine 0.1 MG TABLET PO SCH ×2 (08:57→21:07)
[2016-08-12] MEDS: LORazepam 0.5 MG TABLET PO SCH ×2 (08:57→21:07)
[2016-08-12] MEDS: PANTOPRAZOLE 40 MG TABLET PO SCH (08:57)
[2016-08-12] MEDS: ASPIRIN EC 81 MG TABLET PO SCH (08:57)
[2016-08-12] MEDS ORDERED: SODIUM PHOSPHATE ENEMA 133 ML BOTTLE RECTAL PRN (09:00)
--- NOTE | 2016-08-12 09:51 | Discharge Summary ---
Hospital Course - Hospital Course Hospital Course: Mr. Aguirre was admitted through the emergency department with abdominal pain and urinary retention requiring Pond placement. He has a history of BPH and recent diagnosis of urinary tract infection/cystitis. He was on Cipro which was resistant. Urine cultures were sensitive to ampicillin. He received ampicillin IV during the course of the hospitalization. He was seen in consultation by urology. He'll follow-up as an outpatient with Dr. Cyrus Merino. He also has chronic constipation which worsens his urinary retention. A fleets enema was given prior to discharge. The patient's abdominal pain has resolved. He was instructed on self catheterization for urinary retention. His home medications were continued without change. A prescription for ampicillin 500 mg by mouth 4 times a day was given--prescribed electronically to his pharmacy. Total discharge time for this patient including [id number] time clinical documentation medication reconciliation and discharge planning were 37 minutes - Time spent with patient Time with patient DS: Greater than 30 minutes Diagnosis - Discharge Diagnosis (1) Cystitis Status: Acute (2) Diabetes mellitus Status: Acute (3) BPH (benign prostatic hypertrophy) with urinary retention Status: Chronic (4) Chronic kidney disease, stage III (moderate) Status: Chronic (5) Acute retention of urine Status: Resolved (6) Acute on chronic renal failure Status: Resolved (7) Constipation Status: Acute Discharge Plan - Discharge Data Disposition: Disch To Home/Self Care Condition at Discharge: Stable Discharge Diet: advance to your usual diet Activity: resume usual activities as tolerated Hygiene: no restrictions Weight Bearing at Discharge: full weight bearing - Discharge Medications New Ampicillin Cap 500 mg PO QID #24 capsule Magnesium Hydroxide Susp [Milk of Magnesia] 30 ml PO DAILY Docusate Sodium Cap [Colace Cap] 100 mg PO BID capsule Continue Mirtazapine 7.5 mg PO BEDTIME miSOPROStol [Misoprostol] 200 mcg PO QID hydrALAZINE TAB [Apresoline Tab] 100 mg PO TID cloNIDine TAB [Catapres Tab] 0.1 mg PO BID Insulin NPH [HumuLIN N] 15 unit SUBCUT BID W/MEALS Tamsulosin [Flomax] 0.4 mg PO BID #60 capsule Lisinopril 20 mg PO DAILY Nitroglycerin [Nitrostat] 0.3 mg SL Q5M PRN PRN Reason: Chest Pain Benzonatate 100 mg PO TID PRN PRN Reason: Cough Furosemide 40 mg PO DAILY LORazepam TAB [Ativan Tab] 0.5 mg PO BID #10 tablet Levothyroxine Tab [Synthroid Tab] 50 mcg PO DAILY Aspirin [Ecotrin] 81 mg PO QAM Pantoprazole Tab [Protonix Tab] 40 mg PO DAILY #30 tablet Discontinued Ciprofloxacin Tab [Cipro Tab] 500 mg PO BID #14 tablet - Follow Up or Referral Follow Up: Kristy Dominique CFNP [Primary Care Provider] - Cyrus Merino MD [Physician] - - Forms/Instructions Additional Discharge Instructions: self cath as needed for urinary retention Exam - Constitutional Vitals: Period Temp Pulse Resp BP Sys/Treadwell Pulse Ox Last 24 Hr 97.1 F-97.9 F 76-90 18-20 140-173/66-82 96-100 General appearance: no acute distress - Head Head exam: Present: normal inspection, normocephalic, atraumatic - Eye Eye exam: Present: EOMI - Respiratory Respiratory exam: Present: clear to auscultation bilaterally - Cardiovascular Cardiovascular exam: Present: regular rate and rhythm - GI/Abdominal GI/Abdominal exam: Present: normal bowel sounds, soft. Absent: tenderness, rebound - Extremities Exam Extremities exam: Absent: edema - Neurological Exam Neurological exam: Present: alert, oriented X3 - Psychiatric Psychiatric exam: Present: normal affect, normal mood Discharge Results Labs on day of discharge: Labs from last 24 hours 08/11/16 08/11/16 08/11/16 19:45 16:55 11:24 POC Glucose 197 H 68 L 169 H DS: Provider Date of admission: 08/09/16 20:41 Primary care physician: MIRYAM Yeager Attending physician on admission: Dav Dejesus MD Consults: 08/09/16 23:18 Consult to Pastoral Services [CONS] Routine Comment: Pastoral Screen: Request Rad Tech Visit Pastoral Screen Source of Request: Patient 08/09/16 23:30 Consult to Dietitian [CONS] Routine Reason for Dietitian: Other Consult Comment: pt voices weight loss without trying 08/10/16 11:02 Consult to Physician [CONS] Routine Comment: Cystitis/BPH Consulting Provider: Cyrus Merino Consulting Provider Notified: Yes When should Consulting Provider be notified: Now Consult to Specialist Group: Urology When should Consulting Provider be notified: Now Person Notified: ARELI Date Notified: 08/10/16 Time Notified: 15:33 Discharging clinician: Cecy Mehta MD Expected date of discharge: 08/12/16
--- NOTE | 2016-08-12 11:51 | Urology Progress Note ---
Assessment and Plan (1) BPH (benign prostatic hypertrophy) with urinary retention Status: Chronic Assessment and plan: We will remove the Pond catheter in the morning performing a catheterization as needed. He needs to ambulate as much as he can. May require cystoscopy in the future. Current Visit: Yes Urology - PN: Subj Interval history: Patient is voiding but it is a matter efficiency. His residual is over 200 cc the nurses will trying Self-Cath. He needs cystoscopy we can do that later. Go home if he goes home I will see him in 1 week we will get home health to see him training and Self-Cath. Exam - Constitutional Vitals: Period Temp Pulse Resp BP Sys/Treadwell Pulse Ox Last 24 Hr 97.1 F-97.9 F 76-90 18-20 140-173/66-82 96-100 Results - Labs CBC & BMP: 08/09/16 18:16 08/11/16 03:22 Specialty Discharge - Follow Up or Referrals Follow up with: Cyrus Merino MD [Physician] - Kristy Dominique CFNP [Primary Care Provider] -
--- NOTE | 2016-08-12 16:13 | Hospitalist Progress Note ---
Assessment and Plan (1) Cystitis Status: Acute Assessment and plan: Stop Levaquin/Cipro. Start ampicillin 1 g IV every 8. Current Visit: Yes (2) Diabetes mellitus Status: Acute Current Visit: Yes (3) BPH (benign prostatic hypertrophy) with urinary retention Status: Chronic Current Visit: Yes (4) Chronic kidney disease, stage III (moderate) Status: Chronic Current Visit: Yes (5) Constipation Status: Acute Assessment and plan: add enema Current Visit: Yes Qualifiers: Constipation type: slow transit constipation Qualified Code(s): K59.01 - Slow transit constipation Hospitalist: Subjective Interval history: patient seen and examined. No acute events. He was going to be discharged today but we don't think he knows how to self catheterize yet. We will postpone until tomorrow. Exam - Constitutional Vitals: Period Temp Pulse Resp BP Sys/Treadwell Pulse Ox Last 24 Hr 97.1 F-97.9 F 72-90 18-20 114-173/59-82 99-100 General appearance: no acute distress - Respiratory Respiratory exam: Present: clear to auscultation bilaterally - Cardiovascular Cardiovascular exam: Present: regular rate and rhythm - GI/Abdominal GI/Abdominal exam: Present: normal bowel sounds, soft. Absent: tenderness, rebound - Neurological Exam Neurological exam: Present: alert, oriented X3 Results - Labs CBC & BMP: 08/09/16 18:16 08/11/16 03:22 Lab Results: I have reviewed the past 24 hour labs Specialty Discharge - Follow Up or Referrals Follow up with: Cyrus Merino MD [Physician] - Kristy Dominique CFNP [Primary Care Provider] -
[2016-08-12] MEDS: MIRTAZAPINE 15 MG TABLET PO SCH (21:06)
[2016-08-13] MEDS: AMPICILLIN INJ 1,000 MG in SODIUM CHLORIDE 0.9% 100 ML IV SCH ×2 (05:03→12:28)
[2016-08-13] MEDS: INSULIN LISPRO 100 UNIT/ML SUBCUT SCH (07:31)
[2016-08-13] MEDS: INSULIN NPH 100 UNIT/ML SUBCUT SCH (07:32)
[2016-08-13] MEDS: TAMSULOSIN 0.4 MG CAPSULE PO SCH (08:38)
[2016-08-13] MEDS: miSOPROStol 200 MCG TABLET PO SCH ×2 (08:38→12:20)
[2016-08-13] MEDS: ASPIRIN EC 81 MG TABLET PO SCH (08:38)
[2016-08-13] MEDS: LEVOTHYROXINE 50 MCG TABLET PO SCH (08:38)
[2016-08-13] MEDS: LORazepam 0.5 MG TABLET PO SCH (08:38)
[2016-08-13] MEDS: cloNIDine 0.1 MG TABLET PO SCH (08:38)
[2016-08-13] MEDS: PANTOPRAZOLE 40 MG TABLET PO SCH (08:38)
[2016-08-13] MEDS: MAGNESIUM HYDROXIDE SUSP 30 ML UDCUP PO SCH (08:38)
[2016-08-13] MEDS: DOCUSATE SODIUM 100 MG CAPSULE PO SCH (08:38)
[2016-08-13 09:29] VITALS: BP 150/69
[2016-08-13] MEDS ORDERED: LACTULOSE 20 GM/30 ML UDCUP PO ONE (10:05)
== END 2016-08-13 13:30 | disposition home health service (06) | DRG 690 ==
LOC: N.ED 17:37 → N.EDINP 20:41 → SUATTDRO 20:41 → N.4E 21:50
PROVIDERS: ADMIT Internal Medicine; ATTEND Family Medicine

== ENCOUNTER 2017-02-10 08:43 | Inpatient (IN) ==
[2017-02-10] MEDS ORDERED: PANTOPRAZOLE 40 MG VIAL IV STA (09:04)
[2017-02-10] MEDS ORDERED: ONDANSETRON 4 MG/2 ML VIAL IV STA (09:04)
[2017-02-10] MEDS ORDERED: SODIUM CHLORIDE 0.9% 500 ML IV STA (09:04)
--- NOTE | 2017-02-10 09:10 | Emergency Department Note ---
Arrival - Arrival Chief Complaint: GI Bleed/Rectal Stated Complaint: upset stomach,Rt hand & feet numbness ED Nursing Triage Note: C/o N/V/D-onset 1999 last night. Reports coffee ground emesis. +abd pain. States he has been seen here multiple times for same c/o. Mode of Arrival: Ambulatory Limitations: No Limitations Source: Patient, Family Time Seen by Provider: 02/10/17 09:03 - History of Present Illness HPI Narrative: This 76-year-old black male presents with a multitude of problems all of which he states as does a family member began last evening. Currently complains of chest pain, shortness of breath, heartburn, belching, water brash, abdominal pain, nausea, vomiting, coffee grounds emesis, dysuria, urgency, frequency, and suprapubic tenderness. He does deny melena, bright red blood per rectum, chills , and fever and family members state they have only seen in spit and not actively vomiting. Currently he appears in no acute medical distress spitting into the emesis bag. Onset (ago): hour(s) (Patient presents 12 hours post onset of symptoms) Allergies/Adverse Reactions: Allergies Allergy/AdvReac Type Severity Reaction Status Date / Time No Known Allergies Allergy Verified 08/09/16 17:56 Home Medications: Home Medications Medication Instructions Recorded Confirmed Type Aspirin [Ecotrin] 81 mg PO QAM 11/17/15 02/10/17 History Levothyroxine Tab [Synthroid Tab] 50 mcg PO DAILY 11/17/15 02/10/17 History Mirtazapine 15 mg PO BEDTIME 04/19/16 02/10/17 History miSOPROStol [Misoprostol] 200 mcg PO QID 04/19/16 02/10/17 History Insulin NPH [HumuLIN N] 15 unit SUBCUT BID W/MEALS 05/01/16 02/10/17 History cloNIDine TAB [Catapres Tab] 0.1 mg PO BID 05/01/16 08/09/16 History Pantoprazole Tab [Protonix Tab] 40 mg PO DAILY #30 tablet 05/25/16 02/10/17 Rx Furosemide 40 mg PO DAILY 08/05/16 08/09/16 History LORazepam TAB [Ativan Tab] 0.5 mg PO BID #10 tablet 08/05/16 08/09/16 Rx Lisinopril 20 mg PO DAILY 08/05/16 08/09/16 History Nitroglycerin [Nitrostat] 0.3 mg SL Q5M PRN 08/05/16 02/10/17 History Docusate Sodium Cap [Colace Cap] 100 mg PO BID capsule 08/12/16 Rx Amlodipine Besylate [Amlodipine 10 mg PO DAILY 11/12/16 11/12/16 History Besylate] Dicyclomine Cap/Tab [Bentyl 10 mg PO ACHS 11/12/16 02/10/17 History Cap/Tab] Multivitamin (Intrinsic) 1 capsule PO DAILY 11/12/16 02/10/17 History [Trinsicon] Polyethylene Glycol Powder 17 gm PO DAILY 11/12/16 02/10/17 History [Miralax] Temazepam [Temazepam] 30 mg PO BEDTIME PRN 11/12/16 02/10/17 History hydrALAZINE TAB [Apresoline Tab] 50 mg PO TID 11/12/16 02/10/17 History Gabapentin [Gabapentin] 100 mg PO BEDTIME 02/10/17 History HYDROcodone/ACETAMIN 5-325 [[place] 0.5 - 1 tablet PO Q6H 02/10/17 History 5-325] Lactulose [Lactulose] 20 gm PO DAILY 02/10/17 02/10/17 History Ondansetron Tab [Zofran Tab] 4 mg PO Q8H PRN 02/10/17 02/10/17 History Tamsulosin [Flomax] 0.4 mg PO BIDPC 02/10/17 02/10/17 History traZODone [Desyrel] 25 mg PO BEDTIME PRN 02/10/17 02/10/17 History Review of System - Review of System 12 point system: reviewed and no additional remarkable complaints except as stated - Review of System Constitutional: Present: as per HPI Respiratory: Present: as per HPI Cardiovascular: Present: as per HPI Gastrointestinal: Present: as per HPI Genitourinary male: Present: as per HPI Medical,Surgical,& Family Hx - Medical History Cardio: History of: CHF, CAD, Hypertension, Cardiovascular Problems (stents placed 2013) Psychological: History of: 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 Name of insulin unknown), Diabetes Mellitus (NIDDM), Thyroid Disorder ( hypothyroidism) Rheumatology: History of;: Rheumatoid Arthritis Respiratory: History of: COPD Renal: History of: Renal Failure (stage 3) Comment Only: Renal Problems (trouble voiding. urinary retention) Genitourinary: History of: Prostate Problems (BPH/prostate cancer) Gastrointestinal: History of: Hemorrhoids Musculoskeletal: History of: Back/Neck Problems (back pain) Other: History of: Eczema (face) - Surgical History Cardiac Surgeries: Sugical HX of: Cardiac Catheterization Abdominal Surgeries: Surgical HX of: Abdominal Surgery (exploratory lap 2015), Cholecystectomy (2016), EGD, Hernia Repair - Family History Family History: Reports;: Family Cancer, Family Diabetes (mother type 2), Family Hypertension (mother), Family Stroke (mother) - Social History Smoking Status: Never smoker Frequency of Alcohol Use: None Type of Drug Use: None Exam Physical Examination: GENERAL: Wiry elderly black male spitting in 10 emesis bag in no acute distress. HEENT: Normocephalic. No trauma. Moist mucous membranes. EOMI. PERRLA. ENT NML NECK: Supple. No adenopathy. CARDIAC: Regular. No murmurs. Heart rate 130 CHEST: Clear to auscultation. No respiratory distress. O2 sat 100% ABDOMEN: Soft. Midepigastrium and suprapubic tenderness. Active bowel sounds. EXTREMITIES: No trauma. Normal ROM. No pedal edema. SKIN: No diaphoresis. No rash. NEURO: Alert. Neuro intact no focal deficits. Vital Signs: Vital Signs Temperature 97.5 F L 02/10/17 08:46 Pulse Rate 130 H 02/10/17 08:46 Respiratory Rate 17 02/10/17 08:46 Blood Pressure 185/108 02/10/17 08:46 O2 Sat by Pulse Oximetry 100 02/10/17 08:46 Course - Reevaluation(s) Reevaluation #1: Discussed with patient the status of his dehydration and possible lower GI bleed requiring hospitalization. - Consultations Consultation #1: Discussed the situation with the hospitalist service who will admit for further evaluation treatment. Results - Labs CBC & BMP: 02/10/17 09:54 02/10/17 09:54 Labs: I reviewed the lab and noted the low hematocrit, renal azotemia, and bump in glucose. - Impressions EKG: Sinus tachycardia at 105 with occasional rare PVC. Normal PA interval and QRS duration. Left ventricular hypertrophy with ST strain pattern. No acute injury pattern noted. - Diagnostic Findings Procedure: Abdominal x-ray: image reviewed by me, report reviewed by me (No acute findings), Chest x-ray: image reviewed by me, report reviewed by me (No acute disease) Disposition Clinical Impression: Melena, Renal azotemia
--- NOTE | 2017-02-10 09:23 | XRay Report ---
2 view chest February 10, 2017 Indication: Shortness of breath cough Comparison images dated November 12, 2016 Findings: Cardiac and mediastinal contours are normal. Lungs are clear bilaterally. No pleural effusions. No pneumothorax. No perihilar prominence. No acute osseous abnormalities Impression: Normal chest. PROCEDURE INTERPRETED AT [facility] DEPARTMENT OF RADIOLOGY Final Report Signed by: Mikie Nolasco
--- NOTE | 2017-02-10 09:24 | EKG Report ---
Stationary ECG Study [facility] ER Test Date: 02/10/2017 9:21:51 AM Pat Name: ALYSSA RIVERA Department: Room: Gender: M Shoe Trimmer: : 1940 Requested by: James Lofton Order Number: [id number] Reading MD: KYRIE SONG Intervals [place] Rate: 105 P: 80 HI: 140 QRS: 37 QRSD: 97 T: -56 QT: 343 QTc: 404 Interpretive Statements SINUS TACHYCARDIA WITH OCCASIONAL VENTRICULAR PREMATURE COMPLEXES LEFT VENTRICULAR HYPERTROPHY AND ST-T CHANGE Electronically Signed On 02-10-17 14:02:14 CDT by KYRIE SONG [email or web address]
[2017-02-10] MEDS ORDERED: ONDANSETRON 4 MG/2 ML VIAL ONE (09:50)
[2017-02-10] MEDS ORDERED: PANTOPRAZOLE 40 MG VIAL IV ONE (09:50)
[2017-02-10 10:04] LABS: Basophils % 0.4 % (0.0-0.8); Hematocrit 36.9 VOL% (42.0-52.0); Hemoglobin 13.1 GM/DL (14.0-18.0); Immature Granulocytes % 0.4 %; Immature Granulocytes Absolute 0.02 #; Lymphocytes # 1.1 10*3/uL (1.4-4.0); Lymphocytes % 20.3 % (21.2-54.2); Mean Corpuscular HGB Conc 35.5 GM/DL (32-36); Mean Corpuscular Hemoglobin 31 PG (27-34); Mean Corpuscular Volume 86.2 FL (87-102); Monocytes # 0.3 10*3/uL (0.11-0.8); Monocytes % 4.7 % (1.7-12.7); Neutrophils # 4.1 10*3/uL (1.4-7.4); Neutrophils % 74.2 % (38.7-73.9); Platelet Count 200 T/CUMM (130-400); Red Blood Count 4.28 MC/CUMM (3.8-5.5); Red Cell Distribution Width 11.9 % (9.3-17.3); White Blood Count 5.5 T/CUMM (4-12)
[2017-02-10 10:21] LABS: PT Patient Result 10.8 SECS; Partial Thromboplastin Time 29.8 SECS (0-40)
--- NOTE | 2017-02-10 10:23 | XRay Report ---
EXAM: XR abdomen 2V CLINICAL INDICATION: Abdominal Pain COMPARISON: CT performed August 28, 2016 Findings: No gastric distention. [No abnormally dilated small bowel loops are identified to suggest obstruction. No free intraperitoneal air.] Prior cholecystectomy. Visceral shadows are normal. No abnormal focal soft tissue masses or calcific densities identified in the abdomen or pelvis. IMPRESSION: Nonobstructed bowel gas pattern. PROCEDURE INTERPRETED AT [facility] DEPARTMENT OF RADIOLOGY Final Report Signed by: Mikie Nolasco
[2017-02-10 10:42] LABS: Alanine Aminotransferase 30 U/L (16-61); Alkaline Phosphatase 116 U/L (45-117); Amylase 49 U/L (25-115); Aspartate Amino Transferase 27 U/L (0-37); Blood Urea Nitrogen 27 MG/DL (7-18); Glucose 305 MG/DL (74-106); Osmolality,Calculated 281.4 MOS/KG (273-304); Potassium 3.9 MMOL/L (3.5-5.1); Sodium 133 MMOL/L (136-145); Total Protein 7.7 G/DL (6.4-8.3); Troponin I Only < 0.015 NG/ML (0.00-0.045)
[2017-02-10] MEDS ORDERED: SODIUM CHLORIDE 0.9% 2,000 ML IV STA (10:56)
[2017-02-10] MEDS ORDERED: hydrALAZINE 20 MG/1 ML VIAL IV STA (11:46)
[2017-02-10] MEDS ORDERED: hydrALAZINE 20 MG/1 ML VIAL ONE (12:18)
--- NOTE | 2017-02-10 12:23 | Hospitalist History & Physical ---
Assessment and Plan - Time spent with patient Time spent with patient: Greater than 30 minutes (1) Heme positive stool Status: Acute Assessment and plan: Patient presents complaining of coffee-ground emesis. Stool was heme positive per RN and verified by me. However this appears to be chronic given his RDW is not elevated and his H&H is only slightly decreased. We will consult GI for assistance and recommendations in the care of this patient. Current Visit: Yes (2) Hypertension Status: Chronic Assessment and plan: Patient does have uncontrolled hypertension. Will continue home medications. Add hydralazine as needed. Current Visit: No (3) Weight loss, unintentional Status: Acute Assessment and plan: Likely secondary to prostate cancer. Current Visit: Yes (4) BPH (benign prostatic hypertrophy) with urinary retention Status: Chronic Assessment and plan: PSA diagnostic on admission today is 6.0. Patient does voice a history of known prostate cancer. Given his age, aggressive treatment for prostate cancer is unlikely. Consider finasteride for testosterone regulation. Current Visit: No (5) Chronic kidney disease, stage III (moderate) Status: Chronic Current Visit: No (6) Diabetes mellitus Status: Acute Assessment and plan: Serum glucose 305. Hemoglobin A1c. Accu-cheks ACHS. Sliding scale insulin per protocol. Current Visit: No (7) Abdominal pain Status: Acute Assessment and plan: Prominent abdominal aorta on exam. Abdominal US. Current Visit: Yes History of Present Illness Chief complaint: Abdominal pain, heme positive stool History of present illness: Mr. Aguirre is a 76 year old male with a past medical history significant for insulin-dependent diabetes mellitus, hypertension, peripheral neuropathy who presents to the ED today with complaints of abdominal pain with coffee-ground emesis and melena having onset last night around 1999. The patient reports he has an extensive progressively worsening history of abdominal pain with several hospital visits that have essentially amounted to nothing. Patient reports he began feeling bad last night vomiting "grease and yellow stuff". Family who is present at bedside state that they have only seen him spitting up clear fluids. On exam, the patient does appear chronically ill and has heme positive stool. The patient also complains of approximately 80 pound weight loss over the last year. He does report that he has a history of prostate cancer however he does not follow with an oncologist noting that he is always in the hospital at the time of his oncology appointments. Patient does complain of a headache, blurry vision, hematemesis, chest pain, abdominal pain, nausea/vomiting, melena, bilateral hand and foot numbness. Lab work includes WBC 5.5, hemoglobin 13.1, hematocrit 36.9, platelets 200, sodium 133, potassium 3.9, chloride 98, carbon dioxide 24, BUN 27, creatinine 2.10, serum glucose 305, albumin 4.0, PSA diagnostic 6.0. This case has been discussed with Dr. Cortes, ED physician, and Dr. Andrade, admitting physician, and the patient will be admitted to hospital medicine service for further evaluation and treatment. CODE STATUS was discussed with the patient; patient is a full code makes his own medical decisions. Home medications have been reviewed and reconciled. Home Medications Medication Instructions Recorded Confirmed Type Aspirin [Ecotrin] 81 mg PO QAM 11/17/15 02/10/17 History Levothyroxine Tab [Synthroid Tab] 50 mcg PO DAILY 11/17/15 02/10/17 History Mirtazapine 15 mg PO BEDTIME 04/19/16 02/10/17 History miSOPROStol [Misoprostol] 200 mcg PO QID 04/19/16 02/10/17 History Insulin NPH [HumuLIN N] 15 unit SUBCUT BID W/MEALS 05/01/16 02/10/17 History cloNIDine TAB [Catapres Tab] 0.1 mg PO BID 05/01/16 02/10/17 History Pantoprazole Tab [Protonix Tab] 40 mg PO DAILY #30 tablet 05/25/16 02/10/17 Rx Furosemide 40 mg PO DAILY 08/05/16 02/10/17 History LORazepam TAB [Ativan Tab] 0.5 mg PO BID #10 tablet 08/05/16 02/10/17 Rx Lisinopril 20 mg PO DAILY 08/05/16 02/10/17 History Nitroglycerin [Nitrostat] 0.3 mg SL Q5M PRN 08/05/16 02/10/17 History Docusate Sodium Cap [Colace Cap] 100 mg PO BID capsule 08/12/16 02/10/17 Rx Amlodipine Besylate [Amlodipine 10 mg PO DAILY 11/12/16 02/10/17 History Besylate] Dicyclomine Cap/Tab [Bentyl 10 mg PO ACHS 11/12/16 02/10/17 History Cap/Tab] Multivitamin (Intrinsic) 1 capsule PO DAILY 11/12/16 02/10/17 History [Trinsicon] Polyethylene Glycol Powder 17 gm PO DAILY 11/12/16 02/10/17 History [Miralax] Temazepam [Temazepam] 30 mg PO BEDTIME PRN 11/12/16 02/10/17 History hydrALAZINE TAB [Apresoline Tab] 50 mg PO TID 11/12/16 02/10/17 History Gabapentin [Gabapentin] 100 mg PO BEDTIME 02/10/17 02/10/17 History Lactulose [Lactulose] 20 gm PO DAILY 02/10/17 02/10/17 History Ondansetron Tab [Zofran Tab] 4 mg PO Q8H PRN 02/10/17 02/10/17 History Tamsulosin [Flomax] 0.4 mg PO BIDPC 02/10/17 02/10/17 History traZODone [Desyrel] 25 mg PO BEDTIME PRN 02/10/17 02/10/17 History Allergies Allergy/AdvReac Type Severity Reaction Status Date / Time No Known Allergies Allergy Verified 08/09/16 17:56 Medical,Surgical,& Family Hx - Medical History Cardio: History of: CHF, CAD, Hypertension, Cardiovascular Problems (stents placed 2013) Psychological: History of: 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 Name of insulin unknown), Diabetes Mellitus (NIDDM), Thyroid Disorder ( hypothyroidism) Rheumatology: History of;: Rheumatoid Arthritis Respiratory: History of: COPD Renal: History of: Renal Failure (stage 3) Comment Only: Renal Problems (trouble voiding. urinary retention) Genitourinary: History of: Prostate Problems (BPH/prostate cancer) Gastrointestinal: History of: Hemorrhoids Musculoskeletal: History of: Back/Neck Problems (back pain) Other: History of: Eczema (face) - Surgical History Cardiac Surgeries: Sugical HX of: Cardiac Catheterization Abdominal Surgeries: Surgical HX of: Abdominal Surgery (exploratory lap 2015), Cholecystectomy (2015), EGD, Hernia Repair - Family History Family History: Reports;: Family Cancer, Family Diabetes (mother type 2), Family Hypertension (mother), Family Stroke (mother) - Social History Smoking Status: Never smoker Frequency of Alcohol Use: None Type of Drug Use: None Marital Status: Lives With:: Children Functional capacity: independent ambulation 12 point system: reviewed and no additional remarkable complaints except as stated Exam - Constitutional Vitals: Period Temp Pulse Resp BP Sys/Treadwell Pulse Ox Last 24 Hr 97.5 F-97.5 F 130-130 17-17 185-185/108-108 100 Exam: General appearance: normal weight, no acute distress - Head Head exam: Present: normocephalic, atraumatic - Eye Eye exam: Present: EOMI. Absent: conjunctival injection, nystagmus Pupils: Present: SAM, normal accommodation - ENT ENT exam: Present: normal exam, normal external ear exam - Neck Neck exam: Present: normal inspection. Absent: lymphadenopathy, tenderness, thyromegaly - Respiratory Respiratory exam: Present: clear to auscultation bilaterally. Absent: rales, rhonchi, wheezes - Cardiovascular Cardiovascular exam: Present: Tachycardia. Absent: carotid bruit, gallop, rubs - GI/Abdominal GI/Abdominal exam: Present: normal bowel sounds, tender. Absent: ascites, distended, mass - Extremities Exam Extremities exam: Present: normal inspection, normal capillary refill. Absent: edema - Back Exam Back exam: Absent: CVA tenderness (L), CVA tenderness (R) - Neurological Exam Neurological exam: Present: alert, oriented X3, CN II-XII intact, reflexes normal - Psychiatric Psychiatric exam: Present: normal affect, normal mood - Skin Skin exam: Present: normal color, warm, dry Results - Labs CBC & BMP: 02/10/17 09:54 02/10/17 09:54 Lab Results: I have reviewed the past 24 hour labs - Diagnostic Findings Procedure: Abdominal x-ray: image reviewed by me, report reviewed by me ( Nonobstructive bowel gas pattern), Chest x-ray: image reviewed by me, report reviewed by me (Normal chest x-ray)
[2017-02-10] MEDS ORDERED: GLUCAGON 1 MG VIAL IM PRN (12:46)
[2017-02-10] MEDS ORDERED: DEXTROSE 50% 25 GM/50 ML SYRINGE IV PRN (12:46)
[2017-02-10 13:45] LABS: Hematocrit 35.4 VOL% (42.0-52.0); Hemoglobin 12.6 GM/DL (14.0-18.0)
[2017-02-10] MEDS: DEXTROSE 5% NACL 0.9% 1,000 ML IV SCH (15:11)
[2017-02-10] MEDS: INSULIN LISPRO 100 UNIT/ML SUBCUT SCH ×2 (16:30→22:23)
--- NOTE | 2017-02-10 18:12 | Gastrointestinal Consult Note ---
Assessment and Plan - Time spent with patient Time spent with patient: Greater than 30 minutes (1) Pelvic pain in male Status: Acute Current Visit: Yes (2) Heme positive stool Status: Acute Current Visit: Yes (3) Abdominal pain Status: Acute Assessment and plan: PLEASE NOTE -- automatic citation of patient information is unavoidable in this electronic note. I have made a reasonable effort to review the information cited , but it is not a part of my evaluation, impression, or recommendation unless specifically discussed in the dictated text that follows. As well, voice recognition software was used in the creation of this clinical note. Reasonable effort was made to identify and correct gross errors. Despite proofreading, errors in automatic nailing machine feeder may be present, including nonsense verbiage at times. If you encounter such an error, please contact me at [phone] for discussion and correction. -- Dr. Velasco Chief complaint/Consult Question: Possible coffee-ground emesis Consult requested by: Laura History of present illness: This is a new patient, a 76-year-old - [place] man with prostate cancer, minimal follow-up, who underwent an EGD and colonoscopy in May 2016 for similar complaints presenting with periumbilical abdominal pain, associated with nausea, vomiting. Patient states that vomitus is mostly liquid, yellowish to clear in color, and on one episode had a approximately 1 inch dark streak. Did not occur on multiple episodes, no bright red blood, no diffuse coffee-ground staining. Has noted trace hematochezia on toilet paper when wiping from the bottom, and black when wiping from the bottom, but states that stool is actually brown. Heme positive stool reported from the ER, was done with digital rectal exam and colon cancer screening Hemoccult card. Colonoscopy was done less than one year ago with tubular adenoma and tubulovillous adenoma removed. No other identified source of upper or lower GI bleeding was found at that time when patient presented with drop in hemoglobin to 8, symptomatic anemia, and melena. Patient states that the majority of the abdominal pain is in the low pelvis, sometimes makes him feel like he cannot urinate, as well as in the hard muscles of his abdomen. Other pain is along his prior scar and umbilical hernia repair which he states is "very hard all the time" states he has been having regular bowel movements, no constipation, no diarrhea, no fevers. Has had some "indigestion for the last 1 week, and possible tenesmus. Has been taking a daily aspirin, denies other NSAIDs. Endorses unintentional weight loss. Patient vital signs included tachycardia to the 130s in the ER, received 2 L bolus, heart rate now in the 110s. Hemoglobin transition from 13 to 12 on repeat lab studies after resuscitation in the ER. GI review of systems included: heartburn, regurgitation, early satiety, dysphagia, odynophagia, abdominal pain, nausea, vomiting, hematemesis, weight loss, weight gain, fever, chills, fatigue, decreased appetite, diarrhea, constipation, hematochezia, melena, bloating, malodorous flatus, anal pain, or NSAID use, and was negative except as noted above. REVIEW OF SYSTEMS: Complete other review of systems negative except as noted in the HPI : Outpatient medications: Reviewed Inpatient medications: Personally reviewed, was ordered oral Protonix daily Past Medical History: Personally reviewed Hypertension, hyperlipidemia, CHF, CKD, uncontrolled diabetes, BPH, prostate cancer, prior acute retention of urine, prior hyponatremia, hypothyroidism, prior cystitis Social history: Never tobacco. No alcohol, denies prior substance use Surgical history: Prior abdominal surgery and incision patient cannot recall why , cholecystectomy, umbilical hernia repair PHYSICAL EXAMINATION: CONSTITUTIONAL: Vital signs reviewed as documented above. In no acute distress. Nontoxic-appearing. Very thin -[place] man EYES: Anicteric conjunctiva. Extra-ocular movements are intact and symmetric. EARS: Able to hear speech at conversational volume level, no external trauma/ masses. MOUTH: No oral/mouth lesions or ulcers. NECK: No masses or crepitus. Thyroid is of normal size and symmetric. HEART: Tachycardic rate, regular rhythm LUNGS:. No increased work of breathing or accessory muscle use. GI/ABDOMEN: Thin abdomen, soft, tender to palpation along his abdominal muscular wall, abdominis rectus muscles, and scar tissue over his umbilicus. No evidence of incarcerated bowel in this territory. Deeper pressure, and pressure around the abdominis rectus muscles does not elicit pain, no rebound tenderness, nondistended, no rigidity. No palpable mass. No appreciable hepatosplenomegaly. SKIN: No rash on face, arms, or hands. No palpable lesions MUSCULOSKELETAL: Patient laying in moving well in bed. Muscle tone appears normal without any abnormal movements. PSYCH: Normal affect. Alert and oriented to person, place, and time. Rectum: External rectal exam is normal without ulcerations or hemorrhoids or stool. Digital rectal exam reveals normal sphincter tone, abnormal prostate gland with firm hard nodules, no internal hemorrhoids clearly palpated, nontender, brown stool Laboratory: Personally reviewed Hemoglobin 13.1, to 12 point 2:06 liter resuscitation, WBC 5.5, platelets 200, INR 1.0 Chemistrysodium 133, potassium 3.9, chloride 98, carbon dioxide 24, anion gap of 14.9, creatinine 2.1 (baseline 2-3) A1c 8.9 Albumin 4.0, total protein 7.7 PSA 6.0 TSH 0.614, free T4 1.91 Radiology: Personally reviewed reports Abdominal x-ray from 02/10/17no gastric distention, no free intraperitoneal air, prior cholecystectomy, no abnormal calcifications in the abdomen or pelvis, nonobstructed bowel gas pattern without dilated small bowel loops Chest x-ray from 02/10/17normal Aorta ultrasoundreport pending Assessments: #Nausea and emesisno evidence of coffee-ground emesis, hematemesis, melena or acute GI bleeding. Labs also reflect lack of GI bleeding. Recent EGD and colonoscopy done May 2016 without source of bleeding at that time. #Positive Hemoccult cardtest not done correctly to use a screening tool, in which case stool sample needs to be given spontaneously, as digital rectal exam can cause acute trauma and positive heme testing. If test was done correctly, would indicate need for repeat screening colonoscopy. Patient with prior high- grade adenoma detected on last colonoscopy that was removed. May be reasonable to consider outpatient repeat colonoscopy for colon cancer screening, but nothing needed acutely #abdominal painchronic versus acute intermittent. Pain seems to be focalized to the abdominal muscular wall versus lower pelvis. In a patient with known prostate cancer who has had an adequate follow-up of his own admission, and concerned more about potential urinary pathology at this time. Cannot rule out cutaneous nerve entrapment with prior multiple surgeries to the abdominal wall, which could be treated with abdominal wall stretching, massage, focal lidocaine injection to the abdominal wall musculature. #Prostate cancer: current, active, patient has had lack of follow-up #Other specified counseling -- The patient was seen for greater than 30 minutes. The patient was counseled for greater than 50% of this time regarding differential diagnosis, likely diagnosis, diagnostic and therapeutic alternatives, risks/benefits/alternatives of medications and procedures, and plan of care generally. The patient expressed understanding and wishes to proceed. Recommendations: -No indication for inpatient GI endoscopic evaluation at this time -Recommend that the primary team pursue urinary evaluation, consideration of prostate cancer or metastatic prostate cancer as a source of patient's symptoms of pain, nausea, unintentional weight loss. -Can consider intramuscular wall injections with 1-5cc 2%lidocaine for possible cutaneous nerve entrapment (where the cutaneous nerves get trapped in scar tissue and swollen muscle bellies, resulting in musculoskeletal pain). If this is desired, I can do this as a bedside treatment, but would continue with additional evaluation. -Sending a celiac panel would be low risk for unintentional weight loss, although would be very rare at this age, this ethnicity, but I cannot see if prior EGD had small bowel biopsies done. Ordered. -UA and utox also ordered -primary team to follow-up aortic ultra-sound Sienna Velasco MD, [facility] STAFF [employer] ASSIST[employer] Current Visit: Yes History of Present Illness History of present illness: Mr. Aguirre is a 76 year old male Home Medications Medication Instructions Recorded Confirmed Type Aspirin [Ecotrin] 81 mg PO QAM 11/17/15 02/10/17 History Levothyroxine Tab [Synthroid Tab] 50 mcg PO DAILY 11/17/15 02/10/17 History Mirtazapine 15 mg PO BEDTIME 04/19/16 02/10/17 History miSOPROStol [Misoprostol] 200 mcg PO QID 04/19/16 02/10/17 History Insulin NPH [HumuLIN N] 15 unit SUBCUT BID W/MEALS 05/01/16 02/10/17 History Pantoprazole Tab [Protonix Tab] 40 mg PO DAILY #30 tablet 05/25/16 02/10/17 Rx Furosemide 40 mg PO DAILY 08/05/16 02/10/17 History Lisinopril 20 mg PO DAILY 08/05/16 02/10/17 History Nitroglycerin [Nitrostat] 0.3 mg SL Q5M PRN 08/05/16 02/10/17 History Docusate Sodium Cap [Colace Cap] 100 mg PO BID capsule 08/12/16 02/10/17 Rx Amlodipine Besylate [Amlodipine 10 mg PO DAILY 11/12/16 02/10/17 History Besylate] Dicyclomine Cap/Tab [Bentyl 10 mg PO ACHS 11/12/16 02/10/17 History Cap/Tab] Multivitamin (Intrinsic) 1 capsule PO DAILY 11/12/16 02/10/17 History [Trinsicon] Polyethylene Glycol Powder 17 gm PO DAILY 11/12/16 02/10/17 History [Miralax] hydrALAZINE TAB [Apresoline Tab] 50 mg PO TID 11/12/16 02/10/17 History Gabapentin [Gabapentin] 100 mg PO BEDTIME 02/10/17 02/10/17 History Lactulose [Lactulose] 20 gm PO DAILY 02/10/17 02/10/17 History Ondansetron Tab [Zofran Tab] 4 mg PO Q8H PRN 02/10/17 02/10/17 History Tamsulosin [Flomax] 0.4 mg PO BIDPC 02/10/17 02/10/17 History traZODone [Desyrel] 50 mg PO BEDTIME 02/10/17 02/10/17 History Allergies Allergy/AdvReac Type Severity Reaction Status Date / Time No Known Allergies Allergy Verified 08/09/16 17:56 Medical,Surgical,& Family Hx - Medical History Cardio: History of: CHF, CAD, Hypertension, Cardiovascular Problems (stents placed 2013) Psychological: History of: 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 Name of insulin unknown), Diabetes Mellitus (NIDDM), Thyroid Disorder ( hypothyroidism) Rheumatology: History of;: Rheumatoid Arthritis Respiratory: History of: COPD Renal: History of: Renal Failure (stage 3) Comment Only: Renal Problems (trouble voiding. urinary retention) Genitourinary: History of: Prostate Problems (BPH/prostate cancer) Gastrointestinal: History of: Hemorrhoids Musculoskeletal: History of: Back/Neck Problems (back pain) Other: History of: Eczema (face) - Surgical History Cardiac Surgeries: Sugical HX of: Cardiac Catheterization Abdominal Surgeries: Surgical HX of: Abdominal Surgery (exploratory lap 2016), Cholecystectomy (2016), EGD, Hernia Repair - Family History Family History: Reports;: Family Cancer, Family Diabetes (mother type 2), Family Hypertension (mother), Family Stroke (mother) Denies;: Family Anesthesia Reaction, Family Heart Disease, Family Hematology , Family Psychiatric Problems, Additional Family History - Social History Smoking Status: Never smoker Frequency of Alcohol Use: None Type of Drug Use: None Exam - Constitutional Vitals: Period Temp Pulse Resp BP Sys/Treadwell Pulse Ox Last 24 Hr 97.5 F-97.8 F 86-130 17-23 138-219/69-108 96-100 Results - Labs CBC & BMP: 02/10/17 13:26 02/10/17 09:54
--- NOTE | 2017-02-10 19:14 | Ultrasound Report ---
Doppler ultrasound of the aorta February 10, 2017 Indication: Abdominal aortic aneurysm. Comparison images not available Technique: Nolasco scale sonogram of the aorta was performed in routine fashion utilizing color Doppler. Findings: Normal flow throughout. Scattered plaquing along the aorta with proximal diameter measuring 1.6 cm, mid aorta at 1.5 cm and tapering to 1.4 cm above the bifurcation. Bilateral common iliacs measure approximately 0.9 cm proximally bilaterally. No aneurysmal dilatation, ectasia or significant stenosis. Impression: Mild atherosclerotic changes. No significant stenosis and/or aneurysmal dilatation. Ultrasound images were captured and stored PROCEDURE INTERPRETED AT [facility] DEPARTMENT OF RADIOLOGY Final Report Signed by: Mikie Nolasco
[2017-02-10] MEDS: PANTOPRAZOLE 40 MG VIAL IV SCH (20:22)
[2017-02-10 21:06] LABS: Hemoglobin 11.3 GM/DL (14.0-18.0)
[2017-02-11] MEDS: DEXTROSE 5% NACL 0.9% 1,000 ML IV SCH ×3 (02:38→12:49)
[2017-02-11 04:21] LABS: Basophils % 0.4 % (0.0-0.8); Hematocrit 31.4 VOL% (42.0-52.0); Hemoglobin 10.8 GM/DL (14.0-18.0); Immature Granulocytes % 0.4 %; Immature Granulocytes Absolute 0.02 #; Lymphocytes # 1.7 10*3/uL (1.4-4.0); Lymphocytes % 35.6 % (21.2-54.2); Mean Corpuscular HGB Conc 34.4 GM/DL (32-36); Mean Corpuscular Hemoglobin 31 PG (27-34); Mean Platelet Volume 10.9 FL (9.6-12.0); Monocytes # 0.5 10*3/uL (0.11-0.8); Monocytes % 10.3 % (1.7-12.7); Neutrophils # 2.5 10*3/uL (1.4-7.4); Neutrophils % 53.3 % (38.7-73.9); Platelet Count 168 T/CUMM (130-400); Red Blood Count 3.53 MC/CUMM (3.8-5.5); Red Cell Distribution Width 12.3 % (9.3-17.3); White Blood Count 4.7 T/CUMM (4-12)
[2017-02-11 04:22] LABS: Hematocrit 32.1 VOL% (42.0-52.0); Hemoglobin 10.9 GM/DL (14.0-18.0)
[2017-02-11 04:51] LABS: Calcium 8.6 MG/DL (8.5-10.1); Osmolality,Calculated 283.5 MOS/KG (273-304)
[2017-02-11] MEDS: INSULIN LISPRO 100 UNIT/ML SUBCUT SCH ×4 (08:53→20:40)
[2017-02-11] MEDS: PANTOPRAZOLE 40 MG VIAL IV SCH ×2 (08:53→20:40)
[2017-02-11] MEDS ORDERED: PANTOPRAZOLE 40 MG TABLET PO SCH (09:00)
--- NOTE | 2017-02-11 16:22 | Hospitalist Progress Note ---
Hospitalist: Subjective Interval history: No Bm since admission. C/O chronic intermittent mild to moderate sharp pain and numbness from right shoulder to fingers and left wrist to fingers and toes. No fever. No abd pain. No cp or SOB. Exam - Constitutional Vitals: Period Temp Pulse Resp BP Sys/Treadwell Pulse Ox Last 24 Hr 96.7 F-98.0 F 72-87 18-19 123-177/57-84 95-100 Exam: A and O x 3, chronically ill appearing RRR no M CTAB nonlabored Soft, ND, NT, +BS Warm no c/c/e +1 dp pulses. No shoulder dislocation. fair ROM bilaterally. Results - Labs CBC & BMP: 02/11/17 03:41 02/11/17 03:41 - Impressions (1) Heme positive stool Status: Acute Assessment and plan: Patient presents complaining of coffee-ground emesis. FOBT +. No further emesis. GI following. No plans for endoscopy at this time. Serial H and H. Current Visit: Yes (2) Hypertension Status: Chronic Assessment and plan: Patient does have uncontrolled hypertension. Will continue home medications. Consider hydralazine as needed. Current Visit: No (3) Weight loss, unintentional Status: Acute Assessment and plan: Likely secondary to prostate cancer. F/U urology outpt Current Visit: Yes (4) BPH (benign prostatic hypertrophy) with urinary retention with elevated PSA Status: Chronic Assessment and plan: PSA diagnostic 6.0. Patient does voice a history of known prostate cancer. Given his age, aggressive treatment for prostate cancer is unlikely. Consider finasteride for testosterone regulation. Current Visit: No (5) Chronic kidney disease, stage III (moderate) Status: Chronic Current Visit: No (6) Diabetes mellitus Status: Acute Assessment and plan: Serum glucose 305. Hemoglobin A1c. Accu-cheks ACHS. Sliding scale insulin per protocol. Current Visit: No (7) Abdominal pain Status: Acute Assessment and plan: Prominent abdominal aorta on exam. F/U Abdominal US. Current Visit: Yes (8) Suspected arthritis - check uric acid and right shoulder xray. I will be away several days. One of my associates will follow in my absence.
--- NOTE | 2017-02-11 18:48 | XRay Report ---
Two-view right shoulder February 11, 2017 at 1804 hours Date: Pain and numbness Comparison images not available Findings: Mild degenerative changes across the acromioclavicular joint. Glenohumeral joint is intact. No fracture or dislocation. Visualized lung parenchyma is well aerated. Impression: 1. No acute findings 3. Mild AC arthrosis PROCEDURE INTERPRETED AT [facility] DEPARTMENT OF RADIOLOGY Final Report Signed by: Mikie Nolasco
[2017-02-11 20:21] LABS: Apearance,Urine CLEAR (Clear); Bacteria,Urine Occasional /HPF (Few); Bilirubin,Urine Negative (Negative); Blood, Urine Negative (Negative); Glucose,Urine (UA) 50 mg/dL (Negative); Hyaline Casts,Urine 1 /LPF (0-3); Ketones,Urine Negative (Negative); Nitrite,Urine Negative (Negative); Protein,Urine Negative; RBC,Urine <1 /HPF (0-4); Squamous Epithelial Cell,Urine Occasional /HPF (0-10); Urine Color Straw (Yellow); Urine Specific Gravity 1.004 (1.001-1.035); Urine Urobilinogen < 2.0 EU/DL (0.2-1.0); WBC,Urine 2 /HPF (0-6)
[2017-02-11] MEDS ORDERED: ACETAMINOPHEN 325 MG TABLET PO PRN (21:30)
[2017-02-12] MEDS: DEXTROSE 5% NACL 0.9% 1,000 ML IV SCH ×4 (00:05→16:17)
[2017-02-12 03:24] LABS: Basophils % 0.5 % (0.0-0.8); Eosinophils % 0.2 % (0.00-10.9); Hematocrit 29.1 VOL% (42.0-52.0); Immature Granulocytes % 0.2 %; Immature Granulocytes Absolute 0.01 #; Lymphocytes # 2.1 10*3/uL (1.4-4.0); Lymphocytes % 49.8 % (21.2-54.2); Mean Corpuscular HGB Conc 34.4 GM/DL (32-36); Mean Corpuscular Hemoglobin 31 PG (27-34); Mean Platelet Volume 11.1 FL (9.6-12.0); Monocytes # 0.4 10*3/uL (0.11-0.8); Monocytes % 9.4 % (1.7-12.7); Neutrophils # 1.7 10*3/uL (1.4-7.4); Neutrophils % 39.9 % (38.7-73.9); Platelet Count 158 T/CUMM (130-400); Red Blood Count 3.27 MC/CUMM (3.8-5.5); White Blood Count 4.1 T/CUMM (4-12)
[2017-02-12 03:53] LABS: Calcium 8.3 MG/DL (8.5-10.1); Osmolality,Calculated 283.4 MOS/KG (273-304); Potassium 3.9 MMOL/L (3.5-5.1)
[2017-02-12 03:55] LABS: Albumin 2.8 G/DL (3.4-5.0); Calcium 8.2 MG/DL (8.5-10.1); Osmolality,Calculated 283.4 MOS/KG (273-304); Phosphorous 2.5 MG/DL (2.5-4.9); Potassium 3.9 MMOL/L (3.5-5.1)
[2017-02-12] MEDS: PANTOPRAZOLE 40 MG VIAL IV SCH ×2 (08:30→22:25)
[2017-02-12] MEDS: INSULIN LISPRO 100 UNIT/ML SUBCUT SCH ×4 (08:31→22:25)
[2017-02-12] MEDS ORDERED: ONDANSETRON 4 MG/2 ML VIAL IV PRN ×2 (09:54→10:09)
[2017-02-12] MEDS ORDERED: ONDANSETRON 4 MG/2 ML VIAL ONE (10:14)
--- NOTE | 2017-02-12 10:14 | Hospitalist Progress Note ---
Assessment and Plan (1) Abdominal pain Status: Acute Assessment and plan: Persistent abdominal pain remains upon gentle palpation. The patient verbalizes the difficulty voiding throughout the night. He reported that he voided multiple small amounts however he feels as though if his bladder is not completely emptying. We will reorder bladder scan and if residual urine is excessive, we will insert Pond catheter. Current Visit: Yes (2) Pelvic pain in male Status: Acute Assessment and plan: Persistent abdominal pain remains upon gentle palpation. The patient verbalizes the difficulty voiding throughout the night. He reported that he voided multiple small amounts however he feels as though if his bladder is not completely emptying. We will reorder bladder scan and if residual urine is excessive, we will insert Pond catheter. We will consult urology to evaluate and assist. We will recheck urinalysis. Current Visit: Yes (3) Chronic kidney disease, stage III (moderate) Status: Chronic Assessment and plan: Noted improvement in renal function today. BUN and creatinine noted 19/1.7. This is a noted decrease from 26/2.00 on yesterday. We will continue IV rehydration and recheck labs in a.m. Current Visit: No Hospitalist: Subjective Interval history: Patient seen and examined; chart reviewed. No significant overnight events reported per staff. Patient verbalized difficulty urinating and lower abdominal discomfort. Exam - Constitutional Vitals: Period Temp Pulse Resp BP Sys/Treadwell Pulse Ox Last 24 Hr 96.2 F-98.3 F 65-88 16-99 132-177/59-86 99-100 General appearance: no acute distress, under weight - Head Head exam: Present: normal inspection, normocephalic, atraumatic - Eye Eye exam: Present: EOMI. Absent: nystagmus Pupils: Present: SAM, normal accommodation - ENT ENT exam: Present: normal exam, normal external ear exam, normal oropharynx - Neck Neck exam: Present: normal inspection. Absent: lymphadenopathy, meningismus, tenderness, thyromegaly - Respiratory Respiratory exam: Present: clear to auscultation bilaterally. Absent: rales, rhonchi, stridor, wheezes - Cardiovascular Cardiovascular exam: Present: regular rate and rhythm. Absent: carotid bruit, diastolic murmur, gallop, JVD, rubs, systolic murmur - GI/Abdominal GI/Abdominal exam: Present: normal bowel sounds, tenderness (Lower abdominal tenderness noted upon gentle palpation.) - Extremities Exam Extremities exam: Present: normal inspection, normal capillary refill, full ROM. Absent: edema - Back Exam Back exam: Present: normal inspection - Neurological Exam Neurological exam: Present: alert, oriented X3, CN II-XII intact - Psychiatric Psychiatric exam: Present: normal affect, normal mood - Skin Skin exam: Present: normal color, warm, dry Results - Labs CBC & BMP: 02/12/17 02:12 02/12/17 02:12 Lab Results: I have reviewed the past 24 hour labs
--- NOTE | 2017-02-12 11:08 | Urology Consultation ---
Assessment and Plan - Time spent with patient Time spent with patient: Less than 30 minutes (1) Acute urinary retention Status: Acute Assessment and plan: Agree with Pond catheter placement. Maintain Pond for now, and trend creatinine. Start Flomax 0.4 mg if blood pressure can tolerate Start finasteride 5 mg daily Current Visit: Yes (2) BPH loc w urin obs/LUTS Status: Acute Assessment and plan: Start Flomax and finasteride. Dr. Merino will return tomorrow, and he may need cystoscopy. Current Visit: Yes (3) Prostate cancer Status: Acute Assessment and plan: This is self-reported. I am unsure of the details. Dr. Merino will return tomorrow, and further management can be addressed. Current Visit: Yes (4) Acute on chronic renal failure Status: Resolved Assessment and plan: Trend serum creatinine Maintain Pond catheter Current Visit: No Qualifiers: Acute renal failure type: unspecified Chronic kidney disease stage: stage 3 (moderate) Qualified Code(s): N17.9 - Acute kidney failure, unspecified; N18.3 - Chronic kidney disease, stage 3 (moderate) History of Present Illness - Data of Consult Patient: known to practice within the last 3 years Consult date: 02/12/17 - Consult Narrative History of present illness: Mr. Aguirre is a 76 year old male who was admitted 2 days ago with GI bleed. He is having persistent diarrhea, and was having some coffee-ground emesis that was heme positive. He has a history of BPH and self-reported prostate cancer. He is followed by Dr. Cyrus Merino routinely. He states that he last saw him about 4 months ago. He denies any current treatment for his prostate cancer. He denies gross hematuria. He reports some hesitancy, urgency, straining to void, slow stream, and feeling of incomplete emptying. He does take an oral medicine for his prostate, but he is unsure what this is. He was unable to void well, and a bladder scan was obtained demonstrating over 200 cc. Pond catheter was placed by the medical service with over 300 cc of clear urine. CC: Darline Kilgore MD; acute urinary retention - Home Medications and Allergies Home Medications: Home Medications Medication Instructions Recorded Confirmed Type Aspirin [Ecotrin] 81 mg PO QAM 11/17/15 02/10/17 History Levothyroxine Tab [Synthroid Tab] 50 mcg PO DAILY 11/17/15 02/10/17 History Mirtazapine 15 mg PO BEDTIME 04/19/16 02/10/17 History miSOPROStol [Misoprostol] 200 mcg PO QID 04/19/16 02/10/17 History Insulin NPH [HumuLIN N] 15 unit SUBCUT BID W/MEALS 05/01/16 02/10/17 History Pantoprazole Tab [Protonix Tab] 40 mg PO DAILY #30 tablet 05/25/16 02/10/17 Rx Furosemide 40 mg PO DAILY 08/05/16 02/10/17 History Lisinopril 20 mg PO DAILY 08/05/16 02/10/17 History Nitroglycerin [Nitrostat] 0.3 mg SL Q5M PRN 08/05/16 02/10/17 History Docusate Sodium Cap [Colace Cap] 100 mg PO BID capsule 08/12/16 02/10/17 Rx Amlodipine Besylate [Amlodipine 10 mg PO DAILY 11/12/16 02/10/17 History Besylate] Dicyclomine Cap/Tab [Bentyl 10 mg PO ACHS 11/12/16 02/10/17 History Cap/Tab] Multivitamin (Intrinsic) 1 capsule PO DAILY 11/12/16 02/10/17 History [Trinsicon] Polyethylene Glycol Powder 17 gm PO DAILY 11/12/16 02/10/17 History [Miralax] hydrALAZINE TAB [Apresoline Tab] 50 mg PO TID 11/12/16 02/10/17 History Gabapentin [Gabapentin] 100 mg PO BEDTIME 02/10/17 02/10/17 History Lactulose [Lactulose] 20 gm PO DAILY 02/10/17 02/10/17 History Ondansetron Tab [Zofran Tab] 4 mg PO Q8H PRN 02/10/17 02/10/17 History Tamsulosin [Flomax] 0.4 mg PO BIDPC 02/10/17 02/10/17 History traZODone [Desyrel] 50 mg PO BEDTIME 02/10/17 02/10/17 History Allergies/Adverse Reactions: Allergies Allergy/AdvReac Type Severity Reaction Status Date / Time No Known Allergies Allergy Verified 08/09/16 17:56 Medical,Surgical,& Family Hx - Medical History Cardio: History of: CHF, CAD, Hypertension, Cardiovascular Problems (stents placed 2013) Psychological: History of: 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 Name of insulin unknown), Diabetes Mellitus (NIDDM), Thyroid Disorder ( hypothyroidism) Rheumatology: History of;: Rheumatoid Arthritis Respiratory: History of: COPD Renal: History of: Renal Failure (stage 3) Comment Only: Renal Problems (trouble voiding. urinary retention) Genitourinary: History of: Prostate Problems (BPH/prostate cancer) Gastrointestinal: History of: Hemorrhoids Musculoskeletal: History of: Back/Neck Problems (back pain) Other: History of: Eczema (face) - Surgical History Cardiac Surgeries: Sugical HX of: Cardiac Catheterization Abdominal Surgeries: Surgical HX of: Abdominal Surgery (exploratory lap 2015), Cholecystectomy (2015), EGD, Hernia Repair - Family History Family History: Reports;: Family Cancer, Family Diabetes (mother type 2), Family Hypertension (mother), Family Stroke (mother) Denies;: Family Anesthesia Reaction, Family Heart Disease, Family Hematology , Family Psychiatric Problems, Additional Family History - Social History Smoking Status: Never smoker Frequency of Alcohol Use: None Type of Drug Use: None 12 point system: reviewed and no additional remarkable complaints except as stated - Constitutional Constitutional: Present: anorexia, fatigue - EENT Eyes: Absent: diplopia, loss of vision Nose, mouth and throat: Absent: dysphagia, epistaxis - Cardiovascular Cardiovascular: Absent: chest pain at rest, edema - Respiratory Respiratory: Absent: cough, dyspnea - Gastrointestinal Gastrointestinal: Present: hematemesis, hematochezia - Genitourinary Genitourinary: Present: difficulty urinating, nocturia. Absent: flank pain, hematuria, testicular pain Exam - Constitutional Vitals: Period Temp Pulse Resp BP Sys/Treadwell Pulse Ox Last 24 Hr 96.2 F-98.3 F 65-88 16-99 132-177/59-86 99-100 General appearance: no acute distress - Head Head exam: Present: normocephalic. Absent: abrasion - Eye Eye exam: Absent: scleral icterus - ENT ENT exam: Present: normal oropharynx - Neck Neck exam: Present: normal inspection - Respiratory Respiratory exam: Absent: accessory muscle use, chest wall tenderness, decreased breath sounds, stridor, wheezes - Cardiovascular Cardiovascular exam: Present: regular rate and rhythm. Absent: JVD - GI/Abdominal GI/Abdominal exam: Present: tenderness (Mild diffuse), soft. Absent: rebound - Genitourinary Genitourinary: scrotum without lesions, cysts, edema or rash, penis with no lesions or discharge (Pond catheter in place. He has a edematous glans with a paraphimosis that was reduced at the bedside.) - Extremities Exam Extremities exam: Present: normal capillary refill. Absent: edema - Back Exam Back exam: Absent: CVA tenderness (L), CVA tenderness (R) - Neurological Exam Neurological exam: Present: alert, oriented X3 - Psychiatric Psychiatric exam: Present: normal affect, normal mood - Skin Skin exam: Present: warm, dry Results - Labs CBC & BMP: 02/12/17 02:12 02/12/17 02:12 Lab Results: I have reviewed the past 24 hour labs Labs: Creatinine 2.1 upon admission, down to 1.7 with hydration. Urinalysis with no evidence of leukocytes, nitrite negative, no blood. Potassium stable. Slight anemia noted. - Diagnostic Findings Procedure: CT Abdomen and Pelvis: image reviewed by me, report reviewed by me ( Reviewed CT abdomen pelvis without contrast from August 2016. He had some bilateral pelviectasis and mild dilatation of his ureters. No gross bladder mass, but this was not contrasted. He did have an enlarged prostate. He had a Pond catheter in place at that time. He did have a small subcentimeter left lower pole stone.) Specialty Discharge - Follow Up or Referrals Follow up with: Cyrus Merino MD [Physician] - 2 Weeks (I will notify Dr. Merino, and he will likely see the patient in the hospital if he is still here.)
[2017-02-12 11:26] LABS: Apearance,Urine CLEAR (Clear); Bacteria,Urine Few /HPF (Few); Bilirubin,Urine Negative (Negative); Blood, Urine Negative (Negative); Glucose,Urine (UA) Negative (Negative); Hyaline Casts,Urine 1 /LPF (0-3); Ketones,Urine Negative (Negative); Mucus,Urine Occasional /LPF (Occasional); Nitrite,Urine Negative (Negative); Protein,Urine 30 MG/DL; RBC,Urine 1 /HPF (0-4); Squamous Epithelial Cell,Urine Occasional /HPF (0-10); Urine Color Yellow (Yellow); Urine Urobilinogen < 2.0 EU/DL (0.2-1.0); WBC,Urine 4 /HPF (0-6)
[2017-02-12] MEDS: FINASTERIDE 5 MG TABLET PO SCH (12:43)
[2017-02-12] MEDS: ONDANSETRON 4 MG/2 ML VIAL IV PRN (15:33)
[2017-02-12] MEDS ORDERED: TAMSULOSIN 0.4 MG CAPSULE PO SCH (21:00)
[2017-02-13] MEDS: DEXTROSE 5% NACL 0.9% 1,000 ML IV SCH ×3 (01:45→14:31)
[2017-02-13 07:30] LABS: Basophils % 0.3 % (0.0-0.8); Hematocrit 30.8 VOL% (42.0-52.0); Hemoglobin 10.6 GM/DL (14.0-18.0); Immature Granulocytes % 0.3 %; Immature Granulocytes Absolute 0.01 #; Lymphocytes # 1.3 10*3/uL (1.4-4.0); Lymphocytes % 39.9 % (21.2-54.2); Mean Corpuscular HGB Conc 34.4 GM/DL (32-36); Mean Corpuscular Hemoglobin 31 PG (27-34); Mean Corpuscular Volume 89.5 FL (87-102); Mean Platelet Volume 11.1 FL (9.6-12.0); Monocytes # 0.3 10*3/uL (0.11-0.8); Monocytes % 8.1 % (1.7-12.7); Neutrophils # 1.7 10*3/uL (1.4-7.4); Neutrophils % 51.4 % (38.7-73.9); Platelet Count 146 T/CUMM (130-400); Red Blood Count 3.44 MC/CUMM (3.8-5.5); White Blood Count 3.3 T/CUMM (4-12)
[2017-02-13 08:06] LABS: Calcium 8.3 MG/DL (8.5-10.1); Osmolality,Calculated 283.3 MOS/KG (273-304); Potassium 4.1 MMOL/L (3.5-5.1)
[2017-02-13] MEDS: FINASTERIDE 5 MG TABLET PO SCH (08:20)
[2017-02-13] MEDS: PANTOPRAZOLE 40 MG VIAL IV SCH ×2 (08:22→22:24)
[2017-02-13] MEDS: INSULIN LISPRO 100 UNIT/ML SUBCUT SCH ×3 (08:22→16:35)
[2017-02-13] MEDS: ONDANSETRON 4 MG/2 ML VIAL IV PRN ×2 (08:23→18:14)
--- NOTE | 2017-02-13 09:14 | Urology Progress Note ---
Urology - PN: Subj Interval history: Patient known to me. Presented with a GI bleed and urinary retention. Catheter was placed. Dr. Moore saw the patient fashion model placed him on Flomax and Proscar. I am going to leave the catheter until they decide with her going to do about the GI bleed and scoping etc. I will change his Flomax to twice a day. I am going to stop the Proscar. Exam - Constitutional Vitals: Period Temp Pulse Resp BP Sys/Treadwell Pulse Ox Last 24 Hr 96.6 F-98.4 F 40-82 16-22 137-178/71-91 99-100 Results - Labs CBC & BMP: 02/13/17 06:34 02/13/17 06:34 Specialty Discharge - Follow Up or Referrals Follow up with: Cyrus Merino MD [Physician] - 2 Weeks (I will notify Dr. Merino, and he will likely see the patient in the hospital if he is still here.)
--- NOTE | 2017-02-13 09:17 | Hospitalist Progress Note ---
Assessment and Plan (1) Abdominal pain Status: Acute Assessment and plan: Persistent abdominal pain remains upon gentle palpation. The patient verbalizes the difficulty voiding throughout the night. He reported that he voided multiple small amounts however he feels as though if his bladder is not completely emptying. We will reorder bladder scan and if residual urine is excessive, we will insert Pond catheter 02/13-bladder scan on yesterday reported 310 cc of urine left in the residual bladder after the patient had voided. Pond catheter was inserted. The patient was seen by urology on yesterday. We appreciate the input. We will continue Flomax and finasteride per urology order. We will await evaluation by Dr. Merino this morning for further direction. Current Visit: Yes (2) Pelvic pain in male Status: Acute Assessment and plan: Persistent abdominal pain remains upon gentle palpation. The patient verbalizes the difficulty voiding throughout the night. He reported that he voided multiple small amounts however he feels as though if his bladder is not completely emptying. We will reorder bladder scan and if residual urine is excessive, we will insert Pond catheter. We will consult urology to evaluate and assist. We will recheck urinalysis. 02/12-bladder scan on yesterday reported 310 cc of urine left in the residual bladder after the patient had voided. Pond catheter was inserted. The patient was seen by urology on yesterday. We appreciate the input. We will continue Flomax and finasteride per urology order. We will await evaluation by Dr. Merino this morning for further direction Current Visit: Yes (3) Chronic kidney disease, stage III (moderate) Status: Chronic Assessment and plan: Noted improvement in renal function today. BUN and creatinine noted 19/1.7. This is a noted decrease from 26/2.00 on yesterday. We will continue IV rehydration and recheck labs in a.m. 02/13-noted improvement in renal function today. BUN and creatinine noted at 14/ 1.60. This is a noted decrease from 19/1.7 on yesterday. We will continue gentle IV rehydration and recheck labs in a.m. Current Visit: No Hospitalist: Subjective Interval history: Patient seen and examined; chart reviewed. No significant overnight events reported per staff. Patient was seen by urology on yesterday. We appreciate the input. Exam - Constitutional Vitals: Period Temp Pulse Resp BP Sys/Treadwell Pulse Ox Last 24 Hr 96.6 F-98.4 F 40-82 16-22 137-178/71-91 99-100 General appearance: under weight - Head Head exam: Present: normal inspection, normocephalic, atraumatic - Eye Eye exam: Present: EOMI, conjunctival injection Pupils: Present: SAM, normal accommodation - ENT ENT exam: Present: normal exam, normal external ear exam, normal oropharynx - Neck Neck exam: Present: normal inspection. Absent: lymphadenopathy, meningismus, tenderness, thyromegaly - Respiratory Respiratory exam: Present: clear to auscultation bilaterally. Absent: rales, rhonchi, stridor, wheezes - Cardiovascular Cardiovascular exam: Present: regular rate and rhythm. Absent: carotid bruit, diastolic murmur, gallop - GI/Abdominal GI/Abdominal exam: Present: normal bowel sounds, tenderness - Extremities Exam Extremities exam: Present: normal inspection (Suprapubic tenderness upon gentle palpation), normal capillary refill, full ROM. Absent: edema - Back Exam Back exam: Present: normal inspection - Neurological Exam Neurological exam: Present: alert, oriented X3, CN II-XII intact - Psychiatric Psychiatric exam: Present: normal affect, normal mood - Skin Skin exam: Present: normal color, warm, dry Results - Labs CBC & BMP: 02/13/17 06:34 02/13/17 06:34 Lab Results: I have reviewed the past 24 hour labs Specialty Discharge - Follow Up or Referrals Follow up with: Cyrus Merino MD [Physician] - 2 Weeks (I will notify Dr. Merino, and he will likely see the patient in the hospital if he is still here.)
--- NOTE | 2017-02-13 09:34 | Gastrointestinal Progress Note ---
<Thalia Oropeza Janine - Last Filed: 02/13/17 09:30> Assessment and Plan (1) Abdominal pain Status: Acute Assessment and plan: 02/13-complaints of epigastric pain with nausea and vomiting, heme-positive in the emergency room. H&H stable at 10/30. Recent EGD and colonoscopy in the past year with findings noted as below. Complaints of postprandial pain. Currently followed by Dr. Merino for urinary retention. Consider EGD to further evaluate source of pain. Plan an addendum to followed by Dr. Barber. Current Visit: Yes Gastroenterology - PN: Subj Interval history: CC: Abdominal pain, nausea vomiting Patient is seen awake and alert lying in bed. States he has not feeling well today. Patient was admitted with complaints of some epigastric abdominal pain with associated nausea and vomiting. He did report some dark brown emesis prior to admission. He also states that he has had some dark stools but he is noted to be on iron therapy. He also reports having some known hemorrhoids with occasional bright red blood on the tissue. Patient states that the epigastric pain is worsened postprandial and he does complain of some reflux. 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 He denies any dysphagia at this time. He was also noted to be heme positive in the emergency room on admission. H&H is stable at 10/30. BUN/creatinine ratio is not elevated at 8. His most recent EGD was in April of last year with no abnormal findings are identifiable sources of GI blood loss. He denies any NSAID use. Abdomen is soft, nontender. ROS: Denies shortness of breath or chest pain Exam (Progress Note) - Constitutional Vitals: Period Temp Pulse Resp BP Sys/Treadwell Pulse Ox Last 24 Hr 96.6 F-98.4 F 40-82 16-22 137-178/71-91 99-100 General appearance: normal weight, no acute distress - Head Head exam: Present: normal inspection, normocephalic - Eye Eye exam: Present: other (Lids and conjunctive are unremarkable). Absent: scleral icterus - ENT ENT exam: Present: normal exam, normal oropharynx - Neck Neck exam: Present: normal inspection - Respiratory Respiratory exam: Present: clear to auscultation bilaterally. Absent: rales, rhonchi, wheezes - Cardiovascular Cardiovascular exam: Present: regular rate and rhythm. Absent: diastolic murmur , JVD, systolic murmur - GI/Abdominal GI/Abdominal exam: Present: normal bowel sounds, soft. Absent: ascites, distended, mass, organomegaly, tenderness - Extremities Exam Extremities exam: Present: normal inspection, full ROM - Back Exam Back exam: Present: normal inspection - Neurological Exam Neurological exam: Present: alert, oriented X3 - Psychiatric Psychiatric exam: Present: normal affect, normal mood - Skin Skin exam: Present: normal color, warm, dry Results - Labs CBC & BMP: 02/13/17 06:34 02/13/17 06:34 Lab Results: I have reviewed the past 24 hour labs Specialty Discharge - Follow Up or Referrals Follow up with: Cyrus Merino MD [Physician] - 2 Weeks (I will notify Dr. Merino, and he will likely see the patient in the hospital if he is still here.) <Eduardo Barber - Last Filed: 02/13/17 19:11> Exam (Progress Note) - Constitutional Vitals: Period Temp Pulse Resp BP Sys/Treadwell Pulse Ox Last 24 Hr 97.1 F-98.3 F 40-81 16-22 137-178/71-89 95-100 Results - Labs CBC & BMP: 02/13/17 06:34 02/13/17 06:34
[2017-02-13] MEDS: TAMSULOSIN 0.4 MG CAPSULE PO SCH (22:24)
[2017-02-14] MEDS: INSULIN LISPRO 100 UNIT/ML SUBCUT SCH ×5 (00:05→20:11)
[2017-02-14] MEDS: DEXTROSE 5% NACL 0.9% 1,000 ML IV SCH ×4 (05:43→20:13)
[2017-02-14 06:23] LABS: Albumin 2.7 G/DL (3.4-5.0); Bilirubin,Total 0.6 MG/DL (0.2-1.0); Calcium 8.5 MG/DL (8.5-10.1); Osmolality,Calculated 280.5 MOS/KG (273-304); Phosphorous 2.2 MG/DL (2.5-4.9); Total Protein 5.4 G/DL (6.4-8.3)
[2017-02-14] MEDS ORDERED: SODIUM PHOSPHATE INJ 15 MMOL in SODIUM CHLORIDE 0.9% 250 ML IV ONE (07:54)
[2017-02-14] MEDS: TAMSULOSIN 0.4 MG CAPSULE PO SCH ×2 (08:56→20:12)
[2017-02-14] MEDS: amLODIPine 5 MG TABLET PO SCH (08:56)
--- NOTE | 2017-02-14 09:12 | Hospitalist Progress Note ---
Assessment and Plan (1) Abdominal pain Status: Acute Assessment and plan: Persistent abdominal pain remains upon gentle palpation. The patient verbalizes the difficulty voiding throughout the night. He reported that he voided multiple small amounts however he feels as though if his bladder is not completely emptying. We will reorder bladder scan and if residual urine is excessive, we will insert Pond catheter 02/13-bladder scan on yesterday reported 310 cc of urine left in the residual bladder after the patient had voided. Pond catheter was inserted. The patient was seen by urology on yesterday. We appreciate the input. We will continue Flomax and finasteride per urology order. We will await evaluation by Dr. Merino this morning for further direction. 02/14-Pond catheter remains patent and intact. Urinary output adequate cystoscopy this a.m. per urology. The patient continues to verbalize complaints of nausea and vomiting. The patient was seen and evaluated by gastroenterology on yesterday. We appreciate the input and agree with the plan for EGD. Current Visit: Yes (2) Pelvic pain in male Status: Acute Assessment and plan: Persistent abdominal pain remains upon gentle palpation. The patient verbalizes the difficulty voiding throughout the night. He reported that he voided multiple small amounts however he feels as though if his bladder is not completely emptying. We will reorder bladder scan and if residual urine is excessive, we will insert Pond catheter. We will consult urology to evaluate and assist. We will recheck urinalysis. 02/13-bladder scan on yesterday reported 310 cc of urine left in the residual bladder after the patient had voided. Pond catheter was inserted. The patient was seen by urology on yesterday. We appreciate the input. We will continue Flomax and finasteride per urology order. We will await evaluation by Dr. Merino this morning for further direction 02/14-cystoscopy this a.m. per urology. We will continue Flomax and finasteride as previously ordered. Pond catheter patent and intact; urinary output adequate. Current Visit: Yes (3) Chronic kidney disease, stage III (moderate) Status: Chronic Assessment and plan: Noted improvement in renal function today. BUN and creatinine noted 19/1.7. This is a noted decrease from 26/2.00 on yesterday. We will continue IV rehydration and recheck labs in a.m. 02/13-noted improvement in renal function today. BUN and creatinine noted at 14/ 1.60. This is a noted decrease from 19/1.7 on yesterday. We will continue gentle IV rehydration and recheck labs in a.m. 02/14-renal function remained stable. BUN and creatinine noted at 10/1.60. We will continue IV rehydration and check labs in a.m. Current Visit: No Hospitalist: Subjective Interval history: Patient seen and examined; chart reviewed. No significant overnight events reported per staff. Cystoscopy this a.m. per urology. Exam - Constitutional Vitals: Period Temp Pulse Resp BP Sys/Treadwell Pulse Ox Last 24 Hr 97.2 F-98.2 F 63-75 16-20 137-181/76-83 93-100 General appearance: no acute distress, under weight - Head Head exam: Present: normal inspection, normocephalic, atraumatic - Eye Eye exam: Present: EOMI. Absent: conjunctival injection Pupils: Present: SAM, normal accommodation - ENT ENT exam: Present: normal exam, normal external ear exam, normal oropharynx - Neck Neck exam: Present: normal inspection. Absent: lymphadenopathy, meningismus, tenderness, thyromegaly - Respiratory Respiratory exam: Present: clear to auscultation bilaterally. Absent: rales, rhonchi, stridor, wheezes - Cardiovascular Cardiovascular exam: Present: regular rate and rhythm. Absent: carotid bruit, diastolic murmur, gallop, JVD, rubs, systolic murmur - GI/Abdominal GI/Abdominal exam: Present: normal bowel sounds, tenderness (Suprapubic tenderness upon gentle palpation), soft - Extremities Exam Extremities exam: Present: normal inspection, normal capillary refill, full ROM. Absent: edema - Back Exam Back exam: Present: normal inspection - Neurological Exam Neurological exam: Present: alert, oriented X3, CN II-XII intact - Psychiatric Psychiatric exam: Present: normal affect, normal mood - Skin Skin exam: Present: normal color, warm, dry Results - Labs CBC & BMP: 02/13/17 06:34 02/14/17 05:30 Lab Results: I have reviewed the past 24 hour labs Specialty Discharge - Follow Up or Referrals Follow up with: Cyrus Merino MD [Physician] - 2 Weeks (I will notify Dr. Merino, and he will likely see the patient in the hospital if he is still here.)
[2017-02-14] MEDS: PANTOPRAZOLE 40 MG VIAL IV SCH ×2 (10:14→20:11)
[2017-02-14] MEDS ORDERED: ETOMIDATE 20 MG/10 ML VIAL IV ONE (10:36)
[2017-02-14] MEDS ORDERED: PROPOFOL 200 MG/20 ML VIAL IV ONE (10:36)
[2017-02-14] MEDS ORDERED: LIDOCAINE 1% 5 ML VIAL ONE (10:36)
--- NOTE | 2017-02-14 10:36 | History and Physical Update ---
History and Physical Update - Physical Exam Mental Status: alert and oriented Heart: regular rate and rhythm Lung: clear to auscultation Abdomen: within normal limits Vitals: within normal limits
--- NOTE | 2017-02-14 10:47 | Operative Note ---
Date of procedure: 02/14/17 Pre-op diagnosis: Hematemesis Procedure: EGD 76-year-old gentleman admitted with epigastric pain complaints of hematemesis now for upper endoscopy to further evaluate. Informed symptoms obtained patient He was sedated with MAC anesthesia per anesthesia protocol. Patient placed left lateral decubitus vision the Olympus flexible video upper endoscope was inserted into the oral cavity under direct vision the esophagus was intubated. Findings: Esophagus-normal proximal mid esophageal mucosa distal esophagus with moderate hiatal hernia. No significant esophagitis varices stricture was identified. Stomach-normal insufflation there is mild diffuse gastritis no active bleeding is present no ulcers are seen to direct retroflexed views of the body, fundus, cardia or antrum the stomach. Pylorus-normal Duodenum-normal for the bulb and duodenum to the third portion of duodenum. The procedure was terminated placed our procedure well his discharge recovery in good condition. Postop diagnosis: 1. Diffuse gastritis-continue PPI treatment and monitor. 2. Will not plan colonoscopy at this time since he had a recent colonoscopy performed. Anesthesia: MAC Surgeon / Physician: Eduardo Barber Estimated blood loss: none Specimens: none sent Condition: stable Disposition: post procedure unit Results - Labs CBC & BMP: 02/13/17 06:34 02/14/17 05:30 Discharge Plan - Discharge Medications No Action Mirtazapine 15 mg PO BEDTIME miSOPROStol [Misoprostol] 200 mcg PO QID Insulin NPH [HumuLIN N] 15 unit SUBCUT BID W/MEALS Lisinopril 20 mg PO DAILY Nitroglycerin [Nitrostat] 0.3 mg SL Q5M PRN PRN Reason: Chest Pain Amlodipine Besylate [Amlodipine Besylate] 10 mg PO DAILY Dicyclomine Cap/Tab [Bentyl Cap/Tab] 10 mg PO ACHS Multivitamin (Intrinsic) [Trinsicon] 1 capsule PO DAILY Polyethylene Glycol Powder [Miralax] 17 gm PO DAILY Lactulose [Lactulose] 20 gm PO DAILY traZODone [Desyrel] 50 mg PO BEDTIME Furosemide 40 mg PO DAILY Docusate Sodium Cap [Colace Cap] 100 mg PO BID capsule hydrALAZINE TAB [Apresoline Tab] 50 mg PO TID Gabapentin [Gabapentin] 100 mg PO BEDTIME Tamsulosin [Flomax] 0.4 mg PO BIDPC Ondansetron Tab [Zofran Tab] 4 mg PO Q8H PRN PRN Reason: Nausea/Vomiting Levothyroxine Tab [Synthroid Tab] 50 mcg PO DAILY Aspirin [Ecotrin] 81 mg PO QAM Pantoprazole Tab [Protonix Tab] 40 mg PO DAILY #30 tablet - Follow Up or Referral Follow Up: Cyrus Merino MD [Physician] - 2 Weeks (I will notify Dr. Merino, and he will likely see the patient in the hospital if he is still here.) - Forms/Instructions
--- NOTE | 2017-02-14 10:53 | Anesthesia Post-Op ---
Anesthesia Post OP - Post Ansesthetic Evaluation Patient seen in post op: Yes Resp: within normal limits CV: within normal limits Mental: within normal limits Temp: within normal limits [id number]: within normal limits Nausea and Vomiting: within normal limits Pain: within normal limits
--- NOTE | 2017-02-14 11:16 | Anesthesia Post-Op ---
Anesthesia Post OP - Post Ansesthetic Evaluation Patient seen in post op: Yes Resp: within normal limits CV: within normal limits Mental: within normal limits Temp: within normal limits [id number]: within normal limits Nausea and Vomiting: within normal limits Pain: within normal limits
--- NOTE | 2017-02-14 12:57 | Urology Progress Note ---
Urology - PN: Subj Interval history: Patient had EGD this morning. Apparently gastritis. We will remove his Pond and catheterize him if necessary. Exam - Constitutional Vitals: Period Temp Pulse Resp BP Sys/Treadwell Pulse Ox Last 24 Hr 97.2 F-98.2 F 63-91 16-32 137-219/76-089 93-100 Results - Labs CBC & BMP: 02/13/17 06:34 02/14/17 05:30 Specialty Discharge - Follow Up or Referrals Follow up with: Cyrus Merino MD [Physician] - 2 Weeks (I will notify Dr. Merino, and he will likely see the patient in the hospital if he is still here.)
[2017-02-14] MEDS: INSULIN GLARGINE 100 UNIT/ML SUBCUT SCH (20:11)
[2017-02-14] MEDS: CIPROFLOXACIN 250 MG TABLET PO SCH (20:12)
[2017-02-14 23:16] LABS: IgA Serum (MAYO) 146 mg/dL (61 - 356)
[2017-02-15 06:38] LABS: Basophils % 0.6 % (0.0-0.8); Hematocrit 33.4 VOL% (42.0-52.0); Hemoglobin 11.2 GM/DL (14.0-18.0); Immature Granulocytes % 0.3 %; Immature Granulocytes Absolute 0.01 #; Lymphocytes # 1.3 10*3/uL (1.4-4.0); Mean Corpuscular HGB Conc 33.5 GM/DL (32-36); Mean Corpuscular Hemoglobin 30 PG (27-34); Mean Corpuscular Volume 90.5 FL (87-102); Mean Platelet Volume 10.1 FL (9.6-12.0); Monocytes # 0.3 10*3/uL (0.11-0.8); Monocytes % 8.5 % (1.7-12.7); Neutrophils # 1.7 10*3/uL (1.4-7.4); Neutrophils % 50.6 % (38.7-73.9); Platelet Count 153 T/CUMM (130-400); Red Blood Count 3.69 MC/CUMM (3.8-5.5); Red Cell Distribution Width 11.9 % (9.3-17.3); White Blood Count 3.3 T/CUMM (4-12)
[2017-02-15 07:16] LABS: Albumin 3.1 G/DL (3.4-5.0); Bilirubin,Total 0.9 MG/DL (0.2-1.0); Calcium 8.7 MG/DL (8.5-10.1); Magnesium 1.9 MG/DL (1.8-2.4); Osmolality,Calculated 279.1 MOS/KG (273-304); Phosphorous 2.7 MG/DL (2.5-4.9); Potassium 4.1 MMOL/L (3.5-5.1); Total Protein 6.2 G/DL (6.4-8.3)
[2017-02-15] MEDS: INSULIN LISPRO 100 UNIT/ML SUBCUT SCH ×4 (07:21→20:10)
--- NOTE | 2017-02-15 08:51 | Gastrointestinal Progress Note ---
<DavidkileykamleshThalia Janine - Last Filed: 02/15/17 08:49> Assessment and Plan (1) Abdominal pain Status: Acute Assessment and plan: 02/15-post EGD with findings noted for diffuse gastritis. Nausea without vomiting. H&H stable at . Continue PPI and advance diet as tolerated. Plan an addendum to followed by Dr. Barber. 02/13-complaints of epigastric pain with nausea and vomiting, heme-positive in the emergency room. H&H stable at 04/09. Recent EGD and colonoscopy in the past year with findings noted as below. Complaints of postprandial pain. Currently followed by Dr. Merino for urinary retention. Consider EGD to further evaluate source of pain. Plan an addendum to followed by Dr. Barber. Current Visit: Yes Gastroenterology - PN: Subj Interval history: CC: Epigastric pain Patient is seen awake and alert sitting up in bed eating breakfast. States that he had an uneventful night. He does state he is having continued nausea especially with smell of food. EGD on yesterday noted showed diffuse gastritis. He has not had any vomiting episodes. He is tolerating small amounts of his diet as well. Abdomen is soft, nontender. ROS: Denies shortness breath or chest pain Exam (Progress Note) - Constitutional Vitals: Period Temp Pulse Resp BP Sys/Treadwell Pulse Ox Last 24 Hr 97.8 F-98.8 F 66-96 16-32 139-219/62-089 95-100 General appearance: normal weight, no acute distress - Head Head exam: Present: normal inspection, normocephalic - Eye Eye exam: Present: other (Lids and conjunctive are unremarkable). Absent: scleral icterus - ENT ENT exam: Present: normal exam, normal oropharynx - Neck Neck exam: Present: normal inspection - Respiratory Respiratory exam: Present: clear to auscultation bilaterally. Absent: rales, rhonchi, wheezes - Cardiovascular Cardiovascular exam: Present: regular rate and rhythm. Absent: diastolic murmur , JVD, systolic murmur - GI/Abdominal GI/Abdominal exam: Present: normal bowel sounds, soft. Absent: ascites, distended, mass, organomegaly, tenderness - Extremities Exam Extremities exam: Present: normal inspection, full ROM - Back Exam Back exam: Present: normal inspection - Neurological Exam Neurological exam: Present: alert, oriented X3 - Psychiatric Psychiatric exam: Present: normal affect, normal mood - Skin Skin exam: Present: normal color, warm Results - Labs CBC & BMP: 02/15/17 06:22 02/15/17 06:22 Lab Results: I have reviewed the past 24 hour labs Specialty Discharge - Follow Up or Referrals Follow up with: Cyrus Merino MD [Physician] - 2 Weeks (I will notify Dr. Merino, and he will likely see the patient in the hospital if he is still here.) <Eduardo Barber - Last Filed: 02/15/17 10:25> Exam (Progress Note) - Constitutional Vitals: Period Temp Pulse Resp BP Sys/Treadwell Pulse Ox Last 24 Hr 97.6 F-98.8 F 66-96 16-32 139-172/62-91 95-100 Results - Labs CBC & BMP: 02/15/17 06:22 02/15/17 06:22
--- NOTE | 2017-02-15 09:12 | Hospitalist Progress Note ---
Assessment and Plan (1) Abdominal pain Status: Acute Assessment and plan: Persistent abdominal pain remains upon gentle palpation. The patient verbalizes the difficulty voiding throughout the night. He reported that he voided multiple small amounts however he feels as though if his bladder is not completely emptying. We will reorder bladder scan and if residual urine is excessive, we will insert Pond catheter 02/13-bladder scan on yesterday reported 310 cc of urine left in the residual bladder after the patient had voided. Pond catheter was inserted. The patient was seen by urology on yesterday. We appreciate the input. We will continue Flomax and finasteride per urology order. We will await evaluation by Dr. Merino this morning for further direction. 02/14-Pond catheter remains patent and intact. Urinary output adequate cystoscopy this a.m. per urology. The patient continues to verbalize complaints of nausea and vomiting. The patient was seen and evaluated by gastroenterology on yesterday. We appreciate the input and agree with the plan for EGD. 02/15-Pond catheter discontinued per urology recommendation on yesterday. Urinary output has been adequate. EGD on yesterday significant for diffuse gastritis. We will continue PPIs twice daily per GI recommendation. We will continue Flomax and finasteride per urology order. Current Visit: Yes (2) Pelvic pain in male Status: Acute Assessment and plan: Persistent abdominal pain remains upon gentle palpation. The patient verbalizes the difficulty voiding throughout the night. He reported that he voided multiple small amounts however he feels as though if his bladder is not completely emptying. We will reorder bladder scan and if residual urine is excessive, we will insert Pond catheter. We will consult urology to evaluate and assist. We will recheck urinalysis. 02/13-bladder scan on yesterday reported 310 cc of urine left in the residual bladder after the patient had voided. Pond catheter was inserted. The patient was seen by urology on yesterday. We appreciate the input. We will continue Flomax and finasteride per urology order. We will await evaluation by Dr. Merino this morning for further direction 02/14-cystoscopy this a.m. per urology. We will continue Flomax and finasteride as previously ordered. Pond catheter patent and intact; urinary output adequate. 02/15-Pond catheter discontinued on yesterday per urology recommendation. We will continue Flomax and finasteride as previously ordered. We will monitor urine output closely and assess for urinary retention. Current Visit: Yes (3) Chronic kidney disease, stage III (moderate) Status: Chronic Assessment and plan: Noted improvement in renal function today. BUN and creatinine noted 19/1.7. This is a noted decrease from 26/2.00 on yesterday. We will continue IV rehydration and recheck labs in a.m. 9-noted improvement in renal function today. BUN and creatinine noted at 14/ 1.60. This is a noted decrease from 19/1.7 on yesterday. We will continue gentle IV rehydration and recheck labs in a.m. 9/6-renal function remained stable. BUN and creatinine noted at 10/1.60. We will continue IV rehydration and check labs in a.m. 9/7-renal function remains stable. BUN and creatinine noted at 9/1.80. We will continue gentle rehydration and recheck labs in a.m. Current Visit: No Hospitalist: Subjective Interval history: Patient seen and evaluated; chart reviewed. EGD on yesterday per GI reported diffuse gastritis. We appreciate the input from gastroenterology and agree with the current plan of care. Pond catheter removed on yesterday per urology recommendation. Exam - Constitutional Vitals: Period Temp Pulse Resp BP Sys/Treadwell Pulse Ox Last 24 Hr 97.8 F-98.8 F 66-96 16-32 139-219/62-089 95-100 General appearance: no acute distress, under weight - Head Head exam: Present: normal inspection, normocephalic, atraumatic - Eye Eye exam: Present: EOMI. Absent: conjunctival injection Pupils: Present: SAM, normal accommodation - ENT ENT exam: Present: normal exam, normal external ear exam, normal oropharynx - Neck Neck exam: Present: normal inspection. Absent: lymphadenopathy, meningismus, tenderness, thyromegaly - Respiratory Respiratory exam: Present: clear to auscultation bilaterally. Absent: rales, rhonchi, stridor, wheezes - Cardiovascular Cardiovascular exam: Present: regular rate and rhythm. Absent: carotid bruit, diastolic murmur, gallop, JVD, rubs, systolic murmur - GI/Abdominal GI/Abdominal exam: Present: normal bowel sounds, tenderness (Mild tenderness noted upon deep palpation to suprapubic area), soft - Extremities Exam Extremities exam: Present: normal inspection, normal capillary refill, full ROM. Absent: edema - Back Exam Back exam: Present: normal inspection - Neurological Exam Neurological exam: Present: alert, oriented X3, CN II-XII intact - Psychiatric Psychiatric exam: Present: normal affect, normal mood - Skin Skin exam: Present: normal color, warm, dry Results - Labs CBC & BMP: 02/15/17 06:22 02/15/17 06:22 Lab Results: I have reviewed the past 24 hour labs Specialty Discharge - Follow Up or Referrals Follow up with: Cyrus Merino MD [Physician] - 2 Weeks (I will notify Dr. Merino, and he will likely see the patient in the hospital if he is still here.)
[2017-02-15] MEDS: TAMSULOSIN 0.4 MG CAPSULE PO SCH ×2 (09:19→20:11)
[2017-02-15] MEDS: amLODIPine 5 MG TABLET PO SCH (09:19)
[2017-02-15] MEDS: CIPROFLOXACIN 250 MG TABLET PO SCH (09:19)
[2017-02-15] MEDS: PANTOPRAZOLE 40 MG VIAL IV SCH ×2 (09:19→20:10)
[2017-02-15] MEDS: DEXTROSE 5% NACL 0.9% 1,000 ML IV SCH ×3 (10:19→20:12)
--- NOTE | 2017-02-15 11:02 | Urology Progress Note ---
Urology - PN: Subj Interval history: Patient is voiding now. Residuals have been low. We will stop cathing him. Urinary tract infection noted he is on Cipro 250 twice a day with this being a male we need to increase that to 500 twice a day. From my standpoint we are going to observe him. Continue his Flomax. Exam - Constitutional Vitals: Period Temp Pulse Resp BP Sys/Treadwell Pulse Ox Last 24 Hr 97.6 F-98.8 F 66-96 16-22 139-172/62-91 95-100 Results - Labs CBC & BMP: 02/15/17 06:22 02/15/17 06:22 Specialty Discharge - Follow Up or Referrals Follow up with: Cyrus Merino MD [Physician] - 2 Weeks (I will notify Dr. Merino, and he will likely see the patient in the hospital if he is still here.)
[2017-02-15 12:39] LABS: Tissue Transglutaminase IgA Ab < 1.2 U/mL
[2017-02-15] MEDS: INSULIN GLARGINE 100 UNIT/ML SUBCUT SCH (20:10)
[2017-02-15] MEDS: CIPROFLOXACIN 500 MG TABLET PO SCH (20:11)
[2017-02-16 06:46] LABS: Basophils % 0.3 % (0.0-0.8); Hematocrit 32.3 VOL% (42.0-52.0); Hemoglobin 11.2 GM/DL (14.0-18.0); Lymphocytes # 1.3 10*3/uL (1.4-4.0); Lymphocytes % 38.6 % (21.2-54.2); Mean Corpuscular HGB Conc 34.7 GM/DL (32-36); Mean Corpuscular Hemoglobin 31 PG (27-34); Mean Corpuscular Volume 88.7 FL (87-102); Mean Platelet Volume 10.6 FL (9.6-12.0); Monocytes # 0.3 10*3/uL (0.11-0.8); Monocytes % 7.5 % (1.7-12.7); Neutrophils # 1.8 10*3/uL (1.4-7.4); Neutrophils % 53.6 % (38.7-73.9); Platelet Count 160 T/CUMM (130-400); Red Blood Count 3.64 MC/CUMM (3.8-5.5); Red Cell Distribution Width 11.9 % (9.3-17.3); White Blood Count 3.3 T/CUMM (4-12)
[2017-02-16 07:26] LABS: Albumin 2.9 G/DL (3.4-5.0); Bilirubin,Total 0.6 MG/DL (0.2-1.0); Calcium 8.7 MG/DL (8.5-10.1); Magnesium 1.8 MG/DL (1.8-2.4); Phosphorous 2.7 MG/DL (2.5-4.9); Potassium 4.3 MMOL/L (3.5-5.1); Total Protein 5.8 G/DL (6.4-8.3)
[2017-02-16] MEDS: ONDANSETRON 4 MG/2 ML VIAL IV PRN (08:32)
[2017-02-16] MEDS: PANTOPRAZOLE 40 MG VIAL IV SCH ×2 (08:33→21:48)
[2017-02-16] MEDS: amLODIPine 5 MG TABLET PO SCH (08:33)
[2017-02-16] MEDS: CIPROFLOXACIN 500 MG TABLET PO SCH ×2 (08:33→21:43)
[2017-02-16] MEDS: TAMSULOSIN 0.4 MG CAPSULE PO SCH ×2 (08:33→21:43)
--- NOTE | 2017-02-16 09:01 | Urology Progress Note ---
Urology - PN: Subj Interval history: Patient is voiding frequently due to urinary tract infection. Far as I am concerned he can go home and we will make him an appointment see me in 3 weeks. Exam - Constitutional Vitals: Period Temp Pulse Resp BP Sys/Treadwell Pulse Ox Last 24 Hr 97.3 F-98.9 F 65-94 16-20 122-159/61-78 99-100 Results - Labs CBC & BMP: 02/16/17 05:48 02/16/17 05:48 Specialty Discharge - Follow Up or Referrals Follow up with: Cyrus Merino MD [Physician] - 2 Weeks (I will notify Dr. Merino, and he will likely see the patient in the hospital if he is still here.)
--- NOTE | 2017-02-16 09:17 | Hospitalist Progress Note ---
Assessment and Plan (1) Abdominal pain Status: Acute Assessment and plan: Persistent abdominal pain remains upon gentle palpation. The patient verbalizes the difficulty voiding throughout the night. He reported that he voided multiple small amounts however he feels as though if his bladder is not completely emptying. We will reorder bladder scan and if residual urine is excessive, we will insert Pond catheter 02/13-bladder scan on yesterday reported 310 cc of urine left in the residual bladder after the patient had voided. Pond catheter was inserted. The patient was seen by urology on yesterday. We appreciate the input. We will continue Flomax and finasteride per urology order. We will await evaluation by Dr. Merino this morning for further direction. 02/14-Pond catheter remains patent and intact. Urinary output adequate cystoscopy this a.m. per urology. The patient continues to verbalize complaints of nausea and vomiting. The patient was seen and evaluated by gastroenterology on yesterday. We appreciate the input and agree with the plan for EGD. 02/15-Pond catheter discontinued per urology recommendation on yesterday. Urinary output has been adequate. EGD on yesterday significant for diffuse gastritis. We will continue PPIs twice daily per GI recommendation. We will continue Flomax and finasteride per urology order. 02/16-patient voiding without incidence. We will continue Flomax and finasteride per urology order. Current Visit: Yes (2) Pelvic pain in male Status: Acute Assessment and plan: Persistent abdominal pain remains upon gentle palpation. The patient verbalizes the difficulty voiding throughout the night. He reported that he voided multiple small amounts however he feels as though if his bladder is not completely emptying. We will reorder bladder scan and if residual urine is excessive, we will insert Pond catheter. We will consult urology to evaluate and assist. We will recheck urinalysis. 02/13-bladder scan on yesterday reported 310 cc of urine left in the residual bladder after the patient had voided. Pond catheter was inserted. The patient was seen by urology on yesterday. We appreciate the input. We will continue Flomax and finasteride per urology order. We will await evaluation by Dr. Merino this morning for further direction 02/14-cystoscopy this a.m. per urology. We will continue Flomax and finasteride as previously ordered. Pond catheter patent and intact; urinary output adequate. 02/15-Pond catheter discontinued on yesterday per urology recommendation. We will continue Flomax and finasteride as previously ordered. We will monitor urine output closely and assess for urinary retention. 02/16-patient voiding without incidence. We will continue Flomax and finasteride as previously ordered. Current Visit: Yes (3) Chronic kidney disease, stage III (moderate) Status: Chronic Assessment and plan: Noted improvement in renal function today. BUN and creatinine noted 19/1.7. This is a noted decrease from 26/2.00 on yesterday. We will continue IV rehydration and recheck labs in a.m. 02/13-noted improvement in renal function today. BUN and creatinine noted at 14/ 1.60. This is a noted decrease from 19/1.7 on yesterday. We will continue gentle IV rehydration and recheck labs in a.m. 02/14-renal function remained stable. BUN and creatinine noted at 10/1.60. We will continue IV rehydration and check labs in a.m. 02/15-renal function remains stable. BUN and creatinine noted at 9/1.80. We will continue gentle rehydration and recheck labs in a.m. 02/16-renal function remained stable. BUN and creatinine noted at 10/1.5. We will continue hydration as ordered and recheck labs in a.m. Current Visit: No Hospitalist: Subjective Interval history: Patient seen and examined; chart reviewed. No significant overnight events reported per staff. Patient verbalized abdominal discomfort this morning. Exam - Constitutional Vitals: Period Temp Pulse Resp BP Sys/Treadwell Pulse Ox Last 24 Hr 97.3 F-98.9 F 65-94 16-20 122-159/61-78 99-100 General appearance: normal weight, no acute distress, mild distress - Head Head exam: Present: normal inspection, normocephalic, atraumatic - Eye Eye exam: Present: EOMI. Absent: conjunctival injection Pupils: Present: SAM, normal accommodation - ENT ENT exam: Present: normal exam, normal external ear exam, normal oropharynx - Neck Neck exam: Present: normal inspection. Absent: lymphadenopathy, meningismus, thyromegaly - Respiratory Respiratory exam: Present: clear to auscultation bilaterally. Absent: rales, rhonchi, stridor, wheezes - Cardiovascular Cardiovascular exam: Present: regular rate and rhythm. Absent: carotid bruit, diastolic murmur, gallop, JVD, systolic murmur - GI/Abdominal GI/Abdominal exam: Present: normal bowel sounds, tenderness (Mild suprapubic tenderness upon deep palpation) - Extremities Exam Extremities exam: Present: normal inspection, normal capillary refill, full ROM. Absent: edema - Back Exam Back exam: Present: normal inspection - Neurological Exam Neurological exam: Present: alert, oriented X3, CN II-XII intact - Psychiatric Psychiatric exam: Present: normal affect, normal mood - Skin Skin exam: Present: normal color, warm, dry Results - Labs CBC & BMP: 02/16/17 05:48 02/16/17 05:48 Lab Results: I have reviewed the past 24 hour labs Specialty Discharge - Follow Up or Referrals Follow up with: Cyrus Merino MD [Physician] - (Follow up [address] Cyrus Merino)
[2017-02-16] MEDS: INSULIN LISPRO 100 UNIT/ML SUBCUT SCH ×4 (09:23→21:44)
[2017-02-16] MEDS: DEXTROSE 5% NACL 0.9% 1,000 ML IV SCH ×4 (09:23→19:54)
[2017-02-16] MEDS: SUCRALFATE 1 GM/10 ML UDCUP PO SCH ×2 (16:43→21:43)
[2017-02-16] MEDS: INSULIN GLARGINE 100 UNIT/ML SUBCUT SCH (21:46)
[2017-02-17 03:51] LABS: Basophils % 0.3 % (0.0-0.8); Hematocrit 32.1 VOL% (42.0-52.0); Hemoglobin 10.9 GM/DL (14.0-18.0); Immature Granulocytes % 0.5 %; Immature Granulocytes Absolute 0.02 #; Lymphocytes # 0.7 10*3/uL (1.4-4.0); Lymphocytes % 19.9 % (21.2-54.2); Mean Corpuscular Hemoglobin 31 PG (27-34); Mean Corpuscular Volume 90.2 FL (87-102); Mean Platelet Volume 10.7 FL (9.6-12.0); Monocytes # 0.3 10*3/uL (0.11-0.8); Monocytes % 7.3 % (1.7-12.7); Neutrophils # 2.7 10*3/uL (1.4-7.4); Platelet Count 152 T/CUMM (130-400); Red Blood Count 3.56 MC/CUMM (3.8-5.5); Red Cell Distribution Width 11.9 % (9.3-17.3); White Blood Count 3.7 T/CUMM (4-12)
[2017-02-17 04:23] LABS: Alanine Aminotransferase 26 U/L (16-61); Alkaline Phosphatase 104 U/L (45-117); Aspartate Amino Transferase 26 U/L (0-37); Bilirubin,Total < 0.39 MG/DL (0.2-1.0); Blood Urea Nitrogen 11 MG/DL (7-18); Calcium 8.4 MG/DL (8.5-10.1); Glucose 138 MG/DL (74-106); Magnesium 1.7 MG/DL (1.8-2.4); Osmolality,Calculated 279.4 MOS/KG (273-304); Potassium 4.5 MMOL/L (3.5-5.1); Sodium 140 MMOL/L (136-145); Total Protein 5.9 G/DL (6.4-8.3)
[2017-02-17] MEDS: DEXTROSE 5% NACL 0.9% 1,000 ML IV SCH ×2 (05:52→15:09)
[2017-02-17] MEDS: SUCRALFATE 1 GM/10 ML UDCUP PO SCH ×4 (08:16→21:24)
[2017-02-17] MEDS: CIPROFLOXACIN 500 MG TABLET PO SCH ×2 (08:19→21:24)
[2017-02-17] MEDS: TAMSULOSIN 0.4 MG CAPSULE PO SCH ×2 (08:19→21:25)
[2017-02-17] MEDS: INSULIN LISPRO 100 UNIT/ML SUBCUT SCH ×4 (09:21→21:25)
[2017-02-17] MEDS: PANTOPRAZOLE 40 MG VIAL IV SCH ×2 (09:22→21:24)
[2017-02-17] MEDS: amLODIPine 5 MG TABLET PO SCH (09:23)
[2017-02-17] MEDS ORDERED: MAGNESIUM SULF RIDER 4 GM in PREMIX 1 EACH IV PRN (09:59)
[2017-02-17] MEDS ORDERED: POTASSIUM CHLORIDE RIDER 10 MEQ in PREMIX 1 EACH IV PRN (09:59)
[2017-02-17] MEDS ORDERED: MAGNESIUM SULF RIDER 2 GM in PREMIX 1 EACH IV PRN (09:59)
--- NOTE | 2017-02-17 10:01 | Hospitalist Progress Note ---
Assessment and Plan (1) Abdominal pain Status: Acute Assessment and plan: Persistent abdominal pain remains upon gentle palpation. The patient verbalizes the difficulty voiding throughout the night. He reported that he voided multiple small amounts however he feels as though if his bladder is not completely emptying. We will reorder bladder scan and if residual urine is excessive, we will insert Pond catheter 02/13-bladder scan on yesterday reported 310 cc of urine left in the residual bladder after the patient had voided. Pond catheter was inserted. The patient was seen by urology on yesterday. We appreciate the input. We will continue Flomax and finasteride per urology order. We will await evaluation by Dr. Merino this morning for further direction. 02/14-Pond catheter remains patent and intact. Urinary output adequate cystoscopy this a.m. per urology. The patient continues to verbalize complaints of nausea and vomiting. The patient was seen and evaluated by gastroenterology on yesterday. We appreciate the input and agree with the plan for EGD. 02/15-Pond catheter discontinued per urology recommendation on yesterday. Urinary output has been adequate. EGD on yesterday significant for diffuse gastritis. We will continue PPIs twice daily per GI recommendation. We will continue Flomax and finasteride per urology order. 02/16-patient voiding without incidence. We will continue Flomax and finasteride per urology order. 02/17-we will continue Flomax and finasteride per urology order. Patient reported without difficulty. Current Visit: Yes (2) Pelvic pain in male Status: Acute Assessment and plan: Persistent abdominal pain remains upon gentle palpation. The patient verbalizes the difficulty voiding throughout the night. He reported that he voided multiple small amounts however he feels as though if his bladder is not completely emptying. We will reorder bladder scan and if residual urine is excessive, we will insert Pond catheter. We will consult urology to evaluate and assist. We will recheck urinalysis. 02/13-bladder scan on yesterday reported 310 cc of urine left in the residual bladder after the patient had voided. Pond catheter was inserted. The patient was seen by urology on yesterday. We appreciate the input. We will continue Flomax and finasteride per urology order. We will await evaluation by Dr. Merino this morning for further direction 02/14-cystoscopy this a.m. per urology. We will continue Flomax and finasteride as previously ordered. Pond catheter patent and intact; urinary output adequate. 02/15-Pond catheter discontinued on yesterday per urology recommendation. We will continue Flomax and finasteride as previously ordered. We will monitor urine output closely and assess for urinary retention. 02/16-patient voiding without incidence. We will continue Flomax and finasteride as previously ordered. 02/16-patient voided without incidence. We will continue Flomax and finasteride as previously ordered. Current Visit: Yes (3) Chronic kidney disease, stage III (moderate) Status: Chronic Assessment and plan: Noted improvement in renal function today. BUN and creatinine noted 19/1.7. This is a noted decrease from 26/2.00 on yesterday. We will continue IV rehydration and recheck labs in a.m. 02/13-noted improvement in renal function today. BUN and creatinine noted at 14/ 1.60. This is a noted decrease from 19/1.7 on yesterday. We will continue gentle IV rehydration and recheck labs in a.m. 02/14-renal function remained stable. BUN and creatinine noted at 10/1.60. We will continue IV rehydration and check labs in a.m. 02/15-renal function remains stable. BUN and creatinine noted at 9/1.80. We will continue gentle rehydration and recheck labs in a.m. 02/16-renal function remained stable. BUN and creatinine noted at 10/1.5. We will continue hydration as ordered and recheck labs in a.m. 02/17-the patient's renal function continues to improve; BUN and creatinine noted at 11/1.7. We will continue gentle hydration and recheck labs in a.m. Current Visit: No Hospitalist: Subjective Interval history: Patient seen and examined; chart review. No significant overnight events reported per staff. Patient was evaluated by case management on yesterday in regards to discharge planning. The patient reported that he did not want to go to [facility] requested home health services. The comp field case manager reached out to the patient's family regarding the home health care agency of choice; however no decision has been made. We will await family decision for home health agency. Magnesium today noted at 1.7; we will start magnesium replacement protocol and correct deficit. Exam - Constitutional Vitals: Period Temp Pulse Resp BP Sys/Treadwell Pulse Ox Last 24 Hr 97.6 F-98.1 F 74-87 14-18 145-185/61-84 99-100 General appearance: no acute distress, under weight - Head Head exam: Present: normal inspection, normocephalic, atraumatic - Eye Eye exam: Present: EOMI. Absent: conjunctival injection Pupils: Present: SAM, normal accommodation - ENT ENT exam: Present: normal exam, normal external ear exam, normal oropharynx - Neck Neck exam: Present: normal inspection. Absent: lymphadenopathy, meningismus, tenderness, thyromegaly - Respiratory Respiratory exam: Present: clear to auscultation bilaterally. Absent: rales, rhonchi, stridor, wheezes - Cardiovascular Cardiovascular exam: Present: regular rate and rhythm. Absent: carotid bruit, diastolic murmur, gallop, JVD, rubs, systolic murmur - GI/Abdominal GI/Abdominal exam: Present: normal bowel sounds, soft. Absent: tenderness - Extremities Exam Extremities exam: Present: normal inspection, normal capillary refill, full ROM. Absent: edema - Back Exam Back exam: Present: normal inspection - Neurological Exam Neurological exam: Present: alert, oriented X3, CN II-XII intact - Psychiatric Psychiatric exam: Present: normal affect, normal mood - Skin Skin exam: Present: normal color, warm, dry Results - Labs CBC & BMP: 02/17/17 02:25 02/17/17 02:25 Lab Results: I have reviewed the past 24 hour labs Specialty Discharge - Follow Up or Referrals Follow up with: Cyrus Merino MD [Physician] - (Follow up [address] Cyrus Merino)
[2017-02-17] MEDS: CARVEDILOL 3.125 MG TABLET PO SCH ×2 (11:44→21:24)
[2017-02-17] MEDS: amLODIPine 10 MG TABLET PO SCH (11:44)
[2017-02-17] MEDS ORDERED: SODIUM PHOSPHATE INJ 15 MMOL in SODIUM CHLORIDE 0.9% 250 ML IV ONE (12:00)
--- NOTE | 2017-02-17 12:49 | Urology Progress Note ---
Urology - PN: Subj Interval history: Patient is being prepped for a CT scan. He is voiding. His urine is clear. He needs to ambulate. Exam - Constitutional Vitals: Period Temp Pulse Resp BP Sys/Treadwell Pulse Ox Last 24 Hr 97 F-98.1 F 74-87 14-20 145-185/61-84 99-100 Results - Labs CBC & BMP: 02/17/17 02:25 02/17/17 02:25 Specialty Discharge - Follow Up or Referrals Follow up with: Cyrus Merino MD [Physician] - (Follow up [address] Cyrus Merino)
[2017-02-17] MEDS ORDERED: DOCUSATE SODIUM 100 MG CAPSULE PO ONE (14:10)
[2017-02-17] MEDS ORDERED: BISACODYL 5 MG TABLET PO PRN (14:58)
[2017-02-17] MEDS: ENOXAPARIN 40 MG/0.4 ML SYRINGE SUBCUT SCH (15:31)
--- NOTE | 2017-02-17 16:18 | CT Report ---
History: Abdominal pain. Gastritis. Nausea without vomiting. History of prostate cancer Date: 02/17/2017 Study: CT abdomen and pelvis without IV contrast Comparison exam: Noncontrast CT abdomen and pelvis August 28, 2016 Technique: Spiral CT sections were obtained from the lung bases to the pubic symphysis following oral contrast. No IV contrast given CT abdomen: There is no maxwell pneumonia in the partially visualized lung bases. There is no gross pleural or pericardial effusion. There is no evidence of pneumoperitoneum. The patient is status post cholecystectomy. Surgical clips overlie the region of the EG junction. The liver, spleen, pancreas, adrenal glands, and bile ducts are unremarkable in noncontrast CT appearance. There is a 3 mm nonobstructing renal stone on the left. No radiopaque ureteral stone is seen. There is no hydronephrosis. There is no evidence of bowel obstruction or pneumoperitoneum. There is diverticulosis without maxwell diverticulitis. There is no evidence of appendicitis. The appendix is visualized. There is no aneurysm of the moderately calcified abdominal aorta. There is no gross lymphadenopathy. CT pelvis: The urinary bladder is moderately distended. There are small fat-containing inguinal hernias bilaterally. There is moderate nonspecific diffuse prominence of the prostate gland. Impression: No acute abdominal process. Left nephrolithiasis without hydronephrosis or ureterolithiasis. Diverticulosis without maxwell diverticulitis The CT exam was performed using one or more of the following dose reduction techniques: Automated exposure control, adjustment of the mA and/or kV according to patient size, or use of iterative reconstruction technique. PROCEDURE INTERPRETED AT [facility] DEPARTMENT OF RADIOLOGY Final Report Signed by: Dr. Nanci Segovia
[2017-02-17] MEDS: MIRTAZAPINE 15 MG TABLET PO SCH (21:24)
[2017-02-17] MEDS: GABAPENTIN 100 MG CAPSULE PO SCH (21:24)
[2017-02-17] MEDS: DOCUSATE SODIUM 100 MG CAPSULE PO SCH (21:24)
[2017-02-17] MEDS: traZODone 50 MG TABLET PO SCH (21:24)
[2017-02-18] MEDS: DEXTROSE 5% NACL 0.9% 1,000 ML IV SCH ×4 (02:11→21:37)
[2017-02-18 05:42] LABS: Basophils % 0.6 % (0.0-0.8); Hematocrit 33.4 VOL% (42.0-52.0); Hemoglobin 11.5 GM/DL (14.0-18.0); Immature Granulocytes % 0.3 %; Immature Granulocytes Absolute 0.01 #; Lymphocytes # 1.7 10*3/uL (1.4-4.0); Lymphocytes % 53.1 % (21.2-54.2); Mean Corpuscular HGB Conc 34.4 GM/DL (32-36); Mean Corpuscular Hemoglobin 31 PG (27-34); Mean Corpuscular Volume 88.6 FL (87-102); Mean Platelet Volume 10.6 FL (9.6-12.0); Monocytes # 0.3 10*3/uL (0.11-0.8); Monocytes % 8.1 % (1.7-12.7); Neutrophils # 1.2 10*3/uL (1.4-7.4); Neutrophils % 37.9 % (38.7-73.9); Platelet Count 163 T/CUMM (130-400); Red Blood Count 3.77 MC/CUMM (3.8-5.5); Red Cell Distribution Width 12.2 % (9.3-17.3); White Blood Count 3.2 T/CUMM (4-12)
[2017-02-18 06:06] LABS: Eosinophils 1 % (0-10); Lymphocytes 53 % (20-55); Segmented Neutrophils 38 % (50-85); Total Cells Counted 100
[2017-02-18 06:07] LABS: Hypochromasia 1+; Microcytosis Slight; Platelet Estimate Adequate
[2017-02-18 06:23] LABS: Bilirubin,Total 0.4 MG/DL (0.2-1.0); Calcium 8.6 MG/DL (8.5-10.1); Magnesium 2.3 MG/DL (1.8-2.4); Osmolality,Calculated 282.7 MOS/KG (273-304); Phosphorous 2.5 MG/DL (2.5-4.9); Potassium 4.2 MMOL/L (3.5-5.1)
[2017-02-18] MEDS: amLODIPine 10 MG TABLET PO SCH (08:07)
[2017-02-18] MEDS: SUCRALFATE 1 GM/10 ML UDCUP PO SCH ×4 (08:08→21:37)
[2017-02-18] MEDS: INSULIN LISPRO 100 UNIT/ML SUBCUT SCH ×4 (08:08→21:37)
[2017-02-18] MEDS: TAMSULOSIN 0.4 MG CAPSULE PO SCH ×2 (08:08→21:36)
[2017-02-18] MEDS: DOCUSATE SODIUM 100 MG CAPSULE PO SCH ×2 (08:08→21:36)
[2017-02-18] MEDS: CARVEDILOL 3.125 MG TABLET PO SCH (08:08)
[2017-02-18] MEDS: CIPROFLOXACIN 500 MG TABLET PO SCH ×2 (08:08→21:36)
[2017-02-18] MEDS: PANTOPRAZOLE 40 MG VIAL IV SCH ×2 (08:09→21:40)
[2017-02-18] MEDS ORDERED: BISACODYL 5 MG TABLET PO SCH (09:00)
--- NOTE | 2017-02-18 10:46 | Hospitalist Progress Note ---
Assessment and Plan (1) Abdominal pain Status: Acute Assessment and plan: Persistent abdominal pain remains upon gentle palpation. The patient verbalizes the difficulty voiding throughout the night. He reported that he voided multiple small amounts however he feels as though if his bladder is not completely emptying. We will reorder bladder scan and if residual urine is excessive, we will insert Pond catheter 02/13-bladder scan on yesterday reported 310 cc of urine left in the residual bladder after the patient had voided. Pond catheter was inserted. The patient was seen by urology on yesterday. We appreciate the input. We will continue Flomax and finasteride per urology order. We will await evaluation by Dr. Merino this morning for further direction. 02/14-Pond catheter remains patent and intact. Urinary output adequate cystoscopy this a.m. per urology. The patient continues to verbalize complaints of nausea and vomiting. The patient was seen and evaluated by gastroenterology on yesterday. We appreciate the input and agree with the plan for EGD. 02/15-Pond catheter discontinued per urology recommendation on yesterday. Urinary output has been adequate. EGD on yesterday significant for diffuse gastritis. We will continue PPIs twice daily per GI recommendation. We will continue Flomax and finasteride per urology order. 02/16-patient voiding without incidence. We will continue Flomax and finasteride per urology order. 02/17-we will continue Flomax and finasteride per urology order. Patient voiding without difficulty. 02/18-continue PPI twice daily per GI recommendation. We will continue Flomax and finasteride per urology order. No episodes of dysuria or urinary retention reported per staff Current Visit: Yes (2) Pelvic pain in male Status: Acute Assessment and plan: Persistent abdominal pain remains upon gentle palpation. The patient verbalizes the difficulty voiding throughout the night. He reported that he voided multiple small amounts however he feels as though if his bladder is not completely emptying. We will reorder bladder scan and if residual urine is excessive, we will insert Pond catheter. We will consult urology to evaluate and assist. We will recheck urinalysis. 02/13-bladder scan on yesterday reported 310 cc of urine left in the residual bladder after the patient had voided. Pond catheter was inserted. The patient was seen by urology on yesterday. We appreciate the input. We will continue Flomax and finasteride per urology order. We will await evaluation by Dr. Merino this morning for further direction 02/14-cystoscopy this a.m. per urology. We will continue Flomax and finasteride as previously ordered. Pond catheter patent and intact; urinary output adequate. 02/15-Pond catheter discontinued on yesterday per urology recommendation. We will continue Flomax and finasteride as previously ordered. We will monitor urine output closely and assess for urinary retention. 02/16-patient voiding without incidence. We will continue Flomax and finasteride as previously ordered. 02/16-patient voided without incidence. We will continue Flomax and finasteride as previously ordered. 02/17-patient voiding without incidence, continue Flomax and finasteride as previously ordered. No episodes of dysuria or urinary retention reported. 02/18-patient voiding without incidence, continue Flomax and finasteride as previously ordered. No episodes of dysuria or urinary retention reported. Current Visit: Yes (3) Chronic kidney disease, stage III (moderate) Status: Chronic Assessment and plan: Noted improvement in renal function today. BUN and creatinine noted 19/1.7. This is a noted decrease from 26/2.00 on yesterday. We will continue IV rehydration and recheck labs in a.m. 02/13-noted improvement in renal function today. BUN and creatinine noted at 14/ 1.60. This is a noted decrease from 19/1.7 on yesterday. We will continue gentle IV rehydration and recheck labs in a.m. 02/14-renal function remained stable. BUN and creatinine noted at 10/1.60. We will continue IV rehydration and check labs in a.m. 02/15-renal function remains stable. BUN and creatinine noted at 9/1.80. We will continue gentle rehydration and recheck labs in a.m. 02/16-renal function remained stable. BUN and creatinine noted at 10/1.5. We will continue hydration as ordered and recheck labs in a.m. 02/17-the patient's renal function continues to improve; BUN and creatinine noted at 11/1.7. We will continue gentle hydration and recheck labs in a.m. 02/18-BUN and creatinine noted at 13/1.80. We will continue gentle rehydration and check labs in a.m. Current Visit: No Hospitalist: Subjective Interval history: Patient seen and examined; chart reviewed. No significant overnight events reported per staff. Patient's condition is greatly improved. Tentative discharge plan tomorrow. Exam - Constitutional Vitals: Period Temp Pulse Resp BP Sys/Treadwell Pulse Ox Last 24 Hr 97.5 F-98.3 F 73-90 18-20 149-167/79-99 99-100 General appearance: normal weight, no acute distress - Head Head exam: Present: normal inspection, normocephalic, atraumatic - Eye Eye exam: Present: EOMI. Absent: conjunctival injection Pupils: Present: SAM, normal accommodation - ENT ENT exam: Present: normal exam, normal external ear exam, normal oropharynx - Neck Neck exam: Present: normal inspection. Absent: lymphadenopathy, meningismus, tenderness, thyromegaly - Respiratory Respiratory exam: Present: clear to auscultation bilaterally. Absent: rales, rhonchi, stridor, wheezes - Cardiovascular Cardiovascular exam: Present: regular rate and rhythm. Absent: carotid bruit, diastolic murmur, gallop, rubs, systolic murmur - GI/Abdominal GI/Abdominal exam: Present: normal bowel sounds, soft - Extremities Exam Extremities exam: Present: normal inspection, normal capillary refill, full ROM. Absent: edema - Back Exam Back exam: Present: normal inspection - Neurological Exam Neurological exam: Present: alert, oriented X3, CN II-XII intact - Psychiatric Psychiatric exam: Present: normal affect, normal mood - Skin Skin exam: Present: normal color, warm, dry Results - Labs CBC & BMP: 02/18/17 04:53 02/18/17 04:53 Lab Results: I have reviewed the past 24 hour labs Specialty Discharge - Follow Up or Referrals Follow up with: Cyrus Merino MD [Physician] - (Follow up [address] Cyrus Merino)
[2017-02-18] MEDS: ENOXAPARIN 40 MG/0.4 ML SYRINGE SUBCUT SCH ×2 (14:23→14:37)
[2017-02-18] MEDS: METHEN/SOD PHOS/METH BLUE/HYOS TABLET PO SCH (21:19)
[2017-02-18] MEDS ORDERED: HYOSCYAMINE 0.125 MG TABLET PO PRN (21:22)
[2017-02-18] MEDS: traZODone 50 MG TABLET PO SCH (21:36)
[2017-02-18] MEDS: GABAPENTIN 100 MG CAPSULE PO SCH (21:36)
[2017-02-18] MEDS: CARVEDILOL 12.5 MG TABLET PO SCH (21:36)
[2017-02-18] MEDS: MIRTAZAPINE 15 MG TABLET PO SCH (21:36)
[2017-02-19 00:19] LABS: Apearance,Urine CLEAR (Clear); Bilirubin,Urine Negative (Negative); Blood, Urine Negative (Negative); Glucose,Urine (UA) 150 mg/dL (Negative); Hyaline Casts,Urine 3 /LPF (0-3); Ketones,Urine Negative (Negative); Mucus,Urine Occasional /LPF (Occasional); Nitrite,Urine Negative (Negative); Protein,Urine 30 MG/DL; Squamous Epithelial Cell,Urine Occasional /HPF (0-10); Urine Color Straw (Yellow); Urine Specific Gravity 1.006 (1.001-1.035); Urine Urobilinogen < 2.0 EU/DL (0.2-1.0); WBC,Urine <1 /HPF (0-6)
[2017-02-19] MEDS: DEXTROSE 5% NACL 0.9% 1,000 ML IV SCH ×5 (02:18→22:13)
[2017-02-19 08:27] LABS: Basophils % 0.8 % (0.0-0.8); Hematocrit 35.2 VOL% (42.0-52.0); Hemoglobin 12.1 GM/DL (14.0-18.0); Immature Granulocytes % 0.3 %; Immature Granulocytes Absolute 0.01 #; Lymphocytes # 2.1 10*3/uL (1.4-4.0); Lymphocytes % 53.8 % (21.2-54.2); Mean Corpuscular HGB Conc 34.4 GM/DL (32-36); Mean Corpuscular Hemoglobin 31 PG (27-34); Mean Corpuscular Volume 89.6 FL (87-102); Mean Platelet Volume 10.1 FL (9.6-12.0); Monocytes # 0.3 10*3/uL (0.11-0.8); Monocytes % 7.8 % (1.7-12.7); Neutrophils # 1.5 10*3/uL (1.4-7.4); Neutrophils % 37.3 % (38.7-73.9); Platelet Count 166 T/CUMM (130-400); Red Blood Count 3.93 MC/CUMM (3.8-5.5); Red Cell Distribution Width 12.1 % (9.3-17.3)
[2017-02-19 08:57] LABS: Calcium 8.8 MG/DL (8.5-10.1); Osmolality,Calculated 286.3 MOS/KG (273-304); Potassium 4.2 MMOL/L (3.5-5.1)
[2017-02-19] MEDS: TAMSULOSIN 0.4 MG CAPSULE PO SCH ×2 (09:36→21:52)
[2017-02-19] MEDS: DOCUSATE SODIUM 100 MG CAPSULE PO SCH ×4 (09:36→21:54)
[2017-02-19] MEDS: PANTOPRAZOLE 40 MG VIAL IV SCH ×2 (09:36→21:51)
[2017-02-19] MEDS: SUCRALFATE 1 GM/10 ML UDCUP PO SCH ×4 (09:36→21:52)
[2017-02-19] MEDS: CARVEDILOL 12.5 MG TABLET PO SCH ×2 (09:36→21:52)
[2017-02-19] MEDS: INSULIN LISPRO 100 UNIT/ML SUBCUT SCH ×4 (09:36→21:52)
[2017-02-19] MEDS: amLODIPine 10 MG TABLET PO SCH (09:36)
[2017-02-19] MEDS: CIPROFLOXACIN 500 MG TABLET PO SCH ×2 (09:36→21:52)
[2017-02-19] MEDS: METHEN/SOD PHOS/METH BLUE/HYOS TABLET PO SCH ×4 (09:37→22:55)
[2017-02-19 10:19] LABS: Hypochromasia 1+; Ovalocytes Slight; Platelet Estimate Normal
[2017-02-19 10:20] LABS: Giant Platelets Few; Microcytosis Slight
[2017-02-19] MEDS ORDERED: BISACODYL 10 MG SUPP RECTAL ONE (10:20)
[2017-02-19] MEDS: POLYETHYLENE GLYCOL POWDER 17 GM PACK PO SCH (10:50)
--- NOTE | 2017-02-19 14:56 | Hospitalist Progress Note ---
Hospitalist: Subjective Interval history: Patient has difficulty voiding and requiring in and out catheterization intermittently Exam - Constitutional Vitals: Period Temp Pulse Resp BP Sys/Treadwell Pulse Ox Last 24 Hr 97.3 F-98.2 F 44-93 16-20 119-187/62-92 93-100 Exam: General: [No Acute Distress] HEENT: [Normocephalic, atraumatic, Extra ocular movements intact] Neck: [Supple, No JVD] Chest: [Clear to auscultation B/L] CV: [S1 + S2 audible without murmur, gallop or rub] Abd: [soft, NT, Non-distended, BS +] Ext: [No edema] Skin: [No purpura, bruising or rash] Rheumatologic: [No Joint deformities] Neurologic: [Awake and alert] Results - Labs CBC & BMP: 02/19/17 08:13 02/19/17 08:13 - Impressions Assessment and Plan (1) Abdominal pain Status: Acute Assessment and plan: He is status post EGD he had gastritis, doing well on PPI and Carafate Current Visit: Yes (2) Pelvic pain in male Status: Acute Assessment and plan: This is improving Current Visit: Yes (3) Acute kidney injury chronic kidney disease, stage III (moderate) Status: Chronic Assessment and plan: Creatinine is fluctuating, based on his urine output, continue to monitor Current Visit: No Specialty Discharge - Follow Up or Referrals Follow up with: Cyrus Merino MD [Physician] - (Follow up [address] Cyrus Merino)
[2017-02-19] MEDS: ENOXAPARIN 40 MG/0.4 ML SYRINGE SUBCUT SCH (15:22)
[2017-02-19] MEDS: ONDANSETRON 4 MG/2 ML VIAL IV PRN (21:51)
[2017-02-19] MEDS: GABAPENTIN 100 MG CAPSULE PO SCH (21:52)
[2017-02-19] MEDS: traZODone 50 MG TABLET PO SCH (21:52)
[2017-02-19] MEDS: MIRTAZAPINE 15 MG TABLET PO SCH (21:52)
[2017-02-20] MEDS: DEXTROSE 5% NACL 0.9% 1,000 ML IV SCH ×2 (08:12→18:47)
--- NOTE | 2017-02-20 09:04 | Urology Progress Note ---
Urology - PN: Subj Interval history: Patient is still here and I am surprised. He had a bladder scan yesterday showed over 300 cc. He does complain of voiding issues. But is not ambulating much. Previous scan showed 140 cc. He needs to get up and ambulate at least twice a day. He might require a laser vaporization of his prostate but I am not convinced right now. So, he needs to ambulate and we will entertain this later. Exam - Constitutional Vitals: Period Temp Pulse Resp BP Sys/Treadwell Pulse Ox Last 24 Hr 97.0 F-98.2 F 61-93 16-20 118-164/63-92 94-100 Results - Labs CBC & BMP: 02/19/17 08:13 02/19/17 08:13 Specialty Discharge - Follow Up or Referrals Follow up with: Cyrus Merino MD [Physician] - (Follow up [address] Cyrus Merino)
[2017-02-20] MEDS: CIPROFLOXACIN 500 MG TABLET PO SCH ×2 (09:07→20:51)
[2017-02-20] MEDS: amLODIPine 10 MG TABLET PO SCH (09:07)
[2017-02-20] MEDS: TAMSULOSIN 0.4 MG CAPSULE PO SCH ×2 (09:08→20:51)
[2017-02-20] MEDS: SUCRALFATE 1 GM/10 ML UDCUP PO SCH ×4 (09:08→20:51)
[2017-02-20] MEDS: DOCUSATE SODIUM 100 MG CAPSULE PO SCH ×2 (09:08→20:51)
[2017-02-20] MEDS: CARVEDILOL 12.5 MG TABLET PO SCH ×2 (09:08→20:51)
[2017-02-20] MEDS: INSULIN LISPRO 100 UNIT/ML SUBCUT SCH ×4 (09:08→20:50)
[2017-02-20] MEDS: PANTOPRAZOLE 40 MG VIAL IV SCH ×2 (09:09→20:50)
[2017-02-20] MEDS: METHEN/SOD PHOS/METH BLUE/HYOS TABLET PO SCH (09:11)
[2017-02-20] MEDS: POLYETHYLENE GLYCOL POWDER 17 GM PACK PO SCH (09:11)
--- NOTE | 2017-02-20 15:11 | Hospitalist Progress Note ---
Hospitalist: Subjective Interval history: Patient is voiding better, but he is quite deconditioned. He now agrees to go to a swing bed. Exam - Constitutional Vitals: Period Temp Pulse Resp BP Sys/Treadwell Pulse Ox Last 24 Hr 97.0 F-98.2 F 61-93 18-20 118-164/63-87 99-100 Exam: General: [No Acute Distress] HEENT: [Normocephalic, atraumatic, Extra ocular movements intact] Neck: [Supple, No JVD] Chest: [Clear to auscultation B/L] CV: [S1 + S2 audible without murmur, gallop or rub] Abd: [soft, NT, Non-distended, BS +] Ext: [No edema] Skin: [No purpura, bruising or rash] Rheumatologic: [No Joint deformities] Neurologic: [Awake and alert] Results - Labs CBC & BMP: 02/19/17 08:13 02/19/17 08:13 - Impressions Assessment and Plan (1) Abdominal pain/gastritis Status: Acute Assessment and plan: He is status post EGD he had gastritis, doing well on PPI and Carafate Current Visit: Yes (2) Pelvic pain in male Status: Acute Assessment and plan: This is improving Current Visit: Yes (3) Acute kidney injury chronic kidney disease, stage III (moderate) Status: Chronic Assessment and plan: Creatinine is fluctuating, based on his urine output, continue to monitor Current Visit: No (4) Essential hypertension Status: Chronic Assessment and plan: Creatinine is fluctuating, based on his urine output, continue to monitor Current Visit: No Continue physical therapy for deconditioning. transportation maintenance worker is working on swing bed placement. Specialty Discharge - Follow Up or Referrals Follow up with: Cyrus Merino MD [Physician] - 03/13/17 1:15 pm (Follow up [address] Cyrus Merino)
[2017-02-20] MEDS: ENOXAPARIN 40 MG/0.4 ML SYRINGE SUBCUT SCH (16:10)
[2017-02-20] MEDS: ONDANSETRON 4 MG/2 ML VIAL IV PRN (20:50)
[2017-02-20] MEDS: MIRTAZAPINE 15 MG TABLET PO SCH (20:51)
[2017-02-20] MEDS: traZODone 50 MG TABLET PO SCH (20:51)
[2017-02-20] MEDS: GABAPENTIN 100 MG CAPSULE PO SCH (20:51)
[2017-02-21] MEDS: DEXTROSE 5% NACL 0.9% 1,000 ML IV SCH ×2 (04:07→13:43)
[2017-02-21] MEDS: INSULIN LISPRO 100 UNIT/ML SUBCUT SCH ×3 (08:25→16:07)
[2017-02-21] MEDS: CIPROFLOXACIN 500 MG TABLET PO SCH (08:28)
[2017-02-21] MEDS: SUCRALFATE 1 GM/10 ML UDCUP PO SCH ×3 (08:29→15:30)
[2017-02-21] MEDS: amLODIPine 10 MG TABLET PO SCH (08:29)
[2017-02-21] MEDS: PANTOPRAZOLE 40 MG VIAL IV SCH (08:29)
[2017-02-21] MEDS: CARVEDILOL 12.5 MG TABLET PO SCH (08:29)
[2017-02-21] MEDS: TAMSULOSIN 0.4 MG CAPSULE PO SCH (08:29)
[2017-02-21] MEDS: POLYETHYLENE GLYCOL POWDER 17 GM PACK PO SCH (08:29)
[2017-02-21] MEDS: DOCUSATE SODIUM 100 MG CAPSULE PO SCH (08:29)
--- NOTE | 2017-02-21 10:30 | Discharge Summary ---
<Sapna Pierce - Last Filed: 02/21/17 14:01> Hospital Course - Hospital Course Hospital Course: Mr Aguirre w/PMHx diabetes, hypertension, peripheral neuropathy on 02/10/17 presented to the ED for further evaluation chest pain, shortness of breath, heartburn, belching, abdominal pain with nausea and vomiting of coffee grounds emesis, dysuria, urgency, frequency, and suprapubic tenderness. IN ED: Heme positive stool. LABS significant: WBC 5.5, hemoglobin 13.1, hematocrit 36.9, sodium 133, BUN 27, creatinine 2.10, serum glucose 305, PSA diagnostic 6.0. CXR: normal. Hospital Services consulted for further evaluation. Admitted, consulted GI, sliding scale and accu checks, known prostate cancer history. Aorta CT impression of no significant stenosis or aneurysmal dilatation. CT Abd/ Pelvis: no acute abdominal process, left nephrolithiasis without hydronephrosis or ureterolithiasis, diverticulosis without maxwell diverticulitis. GI consult and recommendations as followed: EGD performed 02/14/17 and noted diffuse gastritis. Recommend to continue PPI treatment. Urology consult and recommendations: urinary retention with improvement after starting Flomax. Urine culture was positive for Klebsiella pneumoniae, proteus vulgaris and placed on/treated with Cipro. He will need to follow up with Urology (Dr Merino) in 3 weeks. He had an elevated PSA of 6 for which he will continue follow-up with urology. He is voiding reasonably well now without a Pond's catheter. e will continue to follow-up with urology as an outpatient. Today 02/21/17 Patient is stable and has shown improvement with symptoms. He has met criteria for discharge home. He was offered home health numerous times by clinical social work therapist and case management but each time he refused. He received physical therapy while he was in the hospital and doing quite well . He will need to follow up with Urology in 3 weeks. He will need to continue Flomax and and other prescribed medications. He will need to follow up with Primary Care Physician. Discharge time 47 minutes. Specialty Discharge - Follow Up or Referrals Follow up with: Cyrus Merino MD [Physician] - 03/13/17 1:15 pm (Follow up [address] Cyrus Merino) Discharge Plan - Discharge Medications New Carvedilol [Coreg] 12.5 mg PO BID #60 tablet Docusate Sodium Cap [Colace Cap] 100 mg PO BID capsule Pantoprazole Tab [Protonix Tab] 40 mg PO DAILY #30 tablet Polyethylene Glycol Powder [Miralax] 17 gm PO DAILY Tamsulosin [Flomax] 0.4 mg PO BID #60 capsule amLODIPine [Norvasc] 10 mg PO DAILY #30 tablet Ciprofloxacin Tab [Cipro Tab] 500 mg PO Q12HR #7 tablet Continue Mirtazapine 15 mg PO BEDTIME miSOPROStol [Misoprostol] 200 mcg PO QID Insulin NPH [HumuLIN N] 15 unit SUBCUT BID W/MEALS Lisinopril 20 mg PO DAILY Nitroglycerin [Nitrostat] 0.3 mg SL Q5M PRN PRN Reason: Chest Pain Amlodipine Besylate 10 mg PO DAILY Dicyclomine Cap/Tab [Bentyl Cap/Tab] 10 mg PO ACHS Multivitamin (Intrinsic) [Trinsicon] 1 capsule PO DAILY Polyethylene Glycol Powder [Miralax] 17 gm PO DAILY Lactulose 20 gm PO DAILY traZODone [Desyrel] 50 mg PO BEDTIME Furosemide 40 mg PO DAILY Docusate Sodium Cap [Colace Cap] 100 mg PO BID capsule hydrALAZINE TAB [Apresoline Tab] 50 mg PO TID Gabapentin 100 mg PO BEDTIME Tamsulosin [Flomax] 0.4 mg PO BIDPC Ondansetron Tab [Zofran Tab] 4 mg PO Q8H PRN PRN Reason: Nausea/Vomiting Levothyroxine Tab [Synthroid Tab] 50 mcg PO DAILY Aspirin [Ecotrin] 81 mg PO QAM Pantoprazole Tab [Protonix Tab] 40 mg PO DAILY #30 tablet - Follow Up or Referral Follow Up: Cyrus Merino MD [Physician] - 03/13/17 1:15 pm (Follow up [address] Cyrus Merino) No PCP,. [Physician] - 1 Week - Forms/Instructions Instructions: How to Catheterize Yourself (Man) (GEN), Acute Abdominal Pain (DC ) Exam - Constitutional Vitals: Period Temp Pulse Resp BP Sys/Treadwell Pulse Ox Last 24 Hr 98.1 F-98.8 F 60-82 18-18 113-159/66-79 98-100 Discharge Results Labs on day of discharge: Labs from last 24 hours 02/21/17 02/21/17 02/20/17 11:44 07:52 19:22 POC Glucose 327 H 134 H 327 H 02/20/17 02/20/17 02/20/17 16:10 15:31 15:26 POC Glucose 196 H 71 L 50 L 02/20/17 15:14 POC Glucose 49 L* DS: Provider Date of admission: 02/12/17 10:16 Primary care physician: Kristy Dominique MD Attending physician on admission: Boone Andrade MD Consults: 02/10/17 12:46 Consult to Physician [CONS] Routine Comment: heme positive stool Consulting Provider: Sienna Velasco Person Notified: aware Date Notified: 02/10/17 Time Notified: 17:06 02/12/17 10:22 Consult to Physician [CONS] Routine Comment: Consulting Provider: Cyrus Merino When should Consulting Provider be notified: Now Person Notified: Dr. Pierson Date Notified: 02/12/17 Time Notified: 10:30 Consult Notification Comment: will see pt today. 02/14/17 17:08 Consult to Case Mgmt/Social Srvs [CONS] Routine Reason for Case Mgmt/Social Srvs: Rehab Other Swingbed/SNF/Usp 02/15/17 08:49 Consult to Occupational Therapy [CONS] Routine Reason for Occupational Therapy: Evaluate and Treat Consult Comment: for swing bed placement PT [Consult to Physical Therapy] [CONS] Routine Reason for Physical Therapy: Other Consult Comment: for swingbed placement 02/16/17 15:20 Consult to Case Mgmt/Social Srvs [CONS] Routine Reason for Case Mgmt/Social Srvs: Home Health 02/19/17 15:02 Consult to Case Mgmt/Social Srvs [CONS] Routine Reason for Case Mgmt/Social Srvs: Home Health Consult Comment: Patient will need home health for in and out intermittent catheterization 02/21/17 13:07 Consult to Case Mgmt/Social Srvs [CONS] Routine Reason for Case Mgmt/Social Srvs: Home Health Consult Comment: will need teaching on in and out catherazitations Discharging clinician: Sapna Pierce NP <Darline Kilgore - Last Filed: 02/21/17 15:31> Hospital Course - Time spent with patient Time with patient DS: Greater than 30 minutes Diagnosis - Discharge Diagnosis (1) BPH (benign prostatic hypertrophy) with urinary retention Status: Chronic (2) Acute urinary retention Status: Resolved Discharge Plan - Discharge Data Condition at Discharge: Stable Discharge Diet: low salt diet Activity: resume usual activities as tolerated Hygiene: no restrictions Weight Bearing at Discharge: full weight bearing Contact your physician if you experience:: fever over 101, Difficulty voiding Exam - Constitutional Exam: General: No Acute Distress HEENT: Normocephalic, atraumatic, Extra ocular movements intact Neck: Supple, No JVD Chest: Clear to auscultation B/L CV: S1 + S2 audible without murmur, gallop or rub Abd: soft, NT, Non-distended, BS + Ext: No edema Skin: No purpura, bruising or rash Rheumatologic: No Joint deformities Neurologic: Strength 5/5 all extremities, no gross sensory deficits
[2017-02-21 12:07] VITALS: BP 113/72
[2017-02-21] MEDS: ENOXAPARIN 40 MG/0.4 ML SYRINGE SUBCUT SCH (15:30)
--- NOTE | 2017-03-01 14:39 | Physician Query Form ---
CLICK EDIT DOCUMENT TO SELECT QUERY ANSWER --> OK --> SIGN Lizette Harden RN Clinical Oceanology Teacher W) [phone] (f) [phone] [email or web address]: Make your selection(s) from the choices in EACH section by typing an "x" and enter comments in the comment section. Please use your independent medical judgment in providing your response. This request does not imply that any particular answer is desired or expected. CLINICAL INDICATORS: (Providers should not edit this section) Based on documentation of "Acute heme positive stool" "Coffee ground emesis" EGD showed "Diffuse gastritis" Protonix continued at discharge. Based on the above, could you clarify the appropriate diagnosis, if significant , that supports the above abnormalities and additional evaluation, monitoring, and/or treatment rendered: (x ) GI bleeding due to diffuse gastritis ( ) GI bleeding NOT due to diffuse gastritis ( ) GI bleeding due to other (please specify) ( ) Other, please specify: ( ) Clinically unable to determine COMMENTS: PLEASE ALSO DOCUMENT RESPONSE IN PROGRESS NOTES AND/OR DISCHARGE SUMMARY Use of terms such as suspected, likely, or probable (associated with a specific diagnosis that is being evaluated, monitored, or treated as if it exists) are acceptable and can be restated in the discharge summary if not ruled out. MTDD
== END 2017-02-21 16:14 | disposition home or self-care (01) | DRG 378 ==
LOC: N.EDINP 08:43 → N.ED 08:43 → SUATTDRO 11:57 → N.EDINP 12:48 → N.5E 13:16
PROVIDERS: ADMIT Internal Medicine Infectious Disease; ATTEND Hospitalist

== ENCOUNTER 2017-09-24 18:41 | Inpatient (IN) ==
[2017-09-24 21:24] LABS: Basophils % 0.6 % (0.0-0.8); Hematocrit 32.7 VOL% (42.0-52.0); Hemoglobin 11.3 GM/DL (14.0-18.0); Immature Granulocytes % 0.2 %; Immature Granulocytes Absolute 0.01 #; Lymphocytes # 1.8 10*3/uL (1.4-4.0); Lymphocytes % 35.7 % (21.2-54.2); Mean Corpuscular HGB Conc 34.6 GM/DL (32-36); Mean Corpuscular Hemoglobin 30 PG (27-34); Mean Corpuscular Volume 87.2 FL (87-102); Mean Platelet Volume 10.4 FL (9.6-12.0); Monocytes # 0.6 10*3/uL (0.11-0.8); Monocytes % 10.9 % (1.7-12.7); Neutrophils # 2.7 10*3/uL (1.4-7.4); Neutrophils % 52.6 % (38.7-73.9); Platelet Count 199 T/CUMM (130-400); Red Blood Count 3.75 MC/CUMM (3.8-5.5); Red Cell Distribution Width 13.4 % (9.3-17.3); White Blood Count 5.2 T/CUMM (4-12)
[2017-09-24] MEDS ORDERED: ONDANSETRON 4 MG/2 ML VIAL ONE (21:44)
[2017-09-24 21:48] LABS: Albumin 3.8 G/DL (3.4-5.0); Calcium 8.8 MG/DL (8.5-10.1); Osmolality,Calculated 275.8 MOS/KG (273-304); Potassium 4.8 MMOL/L (3.5-5.1); Total Protein 7.5 G/DL (6.4-8.3)
[2017-09-24] MEDS ORDERED: ONDANSETRON 4 MG/2 ML VIAL IV STA (22:41)
[2017-09-25 00:04] LABS: Apearance,Urine CLEAR (Clear); Bacteria,Urine Occasional /HPF (Few); Bilirubin,Urine Negative (Negative); Blood, Urine Small mg/dL (Negative); Glucose,Urine (UA) >=500 mg/dL (Negative); Ketones,Urine Negative (Negative); Mucus,Urine Occasional /LPF (Occasional); Nitrite,Urine Negative (Negative); Protein,Urine 30 MG/DL; RBC,Urine 7 /HPF (0-4); Squamous Epithelial Cell,Urine Occasional /HPF (0-10); Urine Color Straw (Yellow); Urine Specific Gravity 1.005 (1.001-1.035); Urine Urobilinogen < 2.0 EU/DL (0.2-1.0); WBC,Urine 23 /HPF (0-6)
[2017-09-25] MEDS ORDERED: NITROGLYCERIN SL 0.4 MG TABLET SL PRN (00:46)
[2017-09-25] MEDS ORDERED: SODIUM CHLORIDE 0.9% 1,000 ML IV STA (01:15)
[2017-09-25] MEDS: SODIUM CHLORIDE 0.9% 1,000 ML IV SCH ×3 (04:00→21:12)
[2017-09-25 05:33] LABS: Basophils % 0.2 % (0.0-0.8); Hematocrit 25.7 VOL% (42.0-52.0); Hemoglobin 9.1 GM/DL (14.0-18.0); Immature Granulocytes % 0.7 %; Immature Granulocytes Absolute 0.03 #; Lymphocytes # 1.8 10*3/uL (1.4-4.0); Lymphocytes % 42.6 % (21.2-54.2); Mean Corpuscular HGB Conc 35.4 GM/DL (32-36); Mean Corpuscular Hemoglobin 30 PG (27-34); Mean Corpuscular Volume 85.1 FL (87-102); Mean Platelet Volume 10.2 FL (9.6-12.0); Monocytes # 0.5 10*3/uL (0.11-0.8); Neutrophils # 1.9 10*3/uL (1.4-7.4); Neutrophils % 44.5 % (38.7-73.9); Platelet Count 145 T/CUMM (130-400); Red Blood Count 3.02 MC/CUMM (3.8-5.5); Red Cell Distribution Width 13.4 % (9.3-17.3); White Blood Count 4.3 T/CUMM (4-12)
[2017-09-25 05:45] LABS: Calcium 8.2 MG/DL (8.5-10.1); Osmolality,Calculated 282.1 MOS/KG (273-304); Potassium 4.1 MMOL/L (3.5-5.1)
[2017-09-25] MEDS ORDERED: GLUCAGON 1 MG VIAL IM PRN (06:27)
[2017-09-25] MEDS ORDERED: DEXTROSE 50% 25 GM/50 ML VIAL IV PRN (06:27)
[2017-09-25] MEDS: ONDANSETRON 4 MG/2 ML VIAL IV PRN ×2 (10:18→17:26)
[2017-09-25 10:49] LABS: Hematocrit 26.6 VOL% (42.0-52.0); Hemoglobin 8.9 GM/DL (14.0-18.0)
[2017-09-25] MEDS: LEVOTHYROXINE 50 MCG TABLET PO SCH (12:51)
[2017-09-25] MEDS: TAMSULOSIN 0.4 MG CAPSULE PO SCH ×2 (12:51→21:13)
[2017-09-25] MEDS: ASPIRIN EC 81 MG TABLET PO SCH (12:51)
[2017-09-25] MEDS: amLODIPine 10 MG TABLET PO SCH (12:51)
[2017-09-25] MEDS: FINASTERIDE 5 MG TABLET PO SCH (12:51)
[2017-09-25] MEDS: CARVEDILOL 12.5 MG TABLET PO SCH ×2 (12:51→21:13)
[2017-09-25] MEDS: INSULIN LISPRO 100 UNIT/ML SUBCUT SCH ×2 (12:52→17:26)
[2017-09-25] MEDS: DICYCLOMINE 10 MG CAPSULE PO SCH ×4 (12:52→21:13)
[2017-09-25 19:57] LABS: Hematocrit 28.4 VOL% (42.0-52.0); Hemoglobin 9.4 GM/DL (14.0-18.0)
[2017-09-26 04:53] LABS: Hematocrit 28.9 VOL% (42.0-52.0); Hemoglobin 9.9 GM/DL (14.0-18.0)
[2017-09-26 04:54] LABS: Basophils % 0.7 % (0.0-0.8); Eosinophils % 0.2 % (0.00-10.9); Hematocrit 30.3 VOL% (42.0-52.0); Hemoglobin 9.9 GM/DL (14.0-18.0); Immature Granulocytes % 0.2 %; Immature Granulocytes Absolute 0.01 #; Lymphocytes # 1.6 10*3/uL (1.4-4.0); Lymphocytes % 38.9 % (21.2-54.2); Mean Corpuscular HGB Conc 32.7 GM/DL (32-36); Mean Corpuscular Hemoglobin 29 PG (27-34); Mean Corpuscular Volume 89.4 FL (87-102); Mean Platelet Volume 11.4 FL (9.6-12.0); Monocytes # 0.4 10*3/uL (0.11-0.8); Monocytes % 10.6 % (1.7-12.7); Neutrophils % 49.4 % (38.7-73.9); Platelet Count 106 T/CUMM (130-400); Red Blood Count 3.39 MC/CUMM (3.8-5.5); Red Cell Distribution Width 13.2 % (9.3-17.3)
[2017-09-26 05:06] LABS: Calcium 8.3 MG/DL (8.5-10.1); Potassium 4.5 MMOL/L (3.5-5.1)
[2017-09-26] MEDS: SODIUM CHLORIDE 0.9% 1,000 ML IV SCH ×3 (05:15→21:33)
[2017-09-26 05:16] LABS: Giant Platelets Few; Hypochromasia 1+; Ovalocytes Slight; Platelet Estimate Decreased
[2017-09-26] MEDS: LEVOTHYROXINE 50 MCG TABLET PO SCH (06:22)
[2017-09-26] MEDS: INSULIN LISPRO 100 UNIT/ML SUBCUT SCH ×5 (06:23→23:14)
[2017-09-26] MEDS: ONDANSETRON 4 MG/2 ML VIAL IV PRN (09:29)
[2017-09-26] MEDS: DICYCLOMINE 10 MG CAPSULE PO SCH ×4 (09:29→21:32)
[2017-09-26] MEDS: CARVEDILOL 12.5 MG TABLET PO SCH ×2 (09:29→21:33)
[2017-09-26] MEDS: ASPIRIN EC 81 MG TABLET PO SCH (09:29)
[2017-09-26] MEDS: amLODIPine 10 MG TABLET PO SCH (09:29)
[2017-09-26] MEDS: TAMSULOSIN 0.4 MG CAPSULE PO SCH ×2 (09:30→21:33)
[2017-09-26] MEDS: FINASTERIDE 5 MG TABLET PO SCH (09:40)
[2017-09-26] MEDS: LACTULOSE 20 GM/30 ML UDCUP PO PRN ×2 (09:48→17:07)
[2017-09-26 11:23] LABS: Hematocrit 26.6 VOL% (42.0-52.0)
[2017-09-27] MEDS: SODIUM CHLORIDE 0.9% 1,000 ML IV SCH ×3 (06:00→18:44)
[2017-09-27] MEDS: INSULIN LISPRO 100 UNIT/ML SUBCUT SCH ×5 (06:01→23:28)
[2017-09-27] MEDS: LEVOTHYROXINE 50 MCG TABLET PO SCH (06:01)
[2017-09-27 06:25] LABS: Calcium 8.1 MG/DL (8.5-10.1); Potassium 4.6 MMOL/L (3.5-5.1)
[2017-09-27 07:45] LABS: Basophils % 0.2 % (0.0-0.8); Hematocrit 27.3 VOL% (42.0-52.0); Hemoglobin 9.4 GM/DL (14.0-18.0); Immature Granulocytes % 0.2 %; Immature Granulocytes Absolute 0.01 #; Lymphocytes # 1.6 10*3/uL (1.4-4.0); Lymphocytes % 37.2 % (21.2-54.2); Mean Corpuscular HGB Conc 34.4 GM/DL (32-36); Mean Corpuscular Hemoglobin 30 PG (27-34); Mean Corpuscular Volume 87.5 FL (87-102); Mean Platelet Volume 10.4 FL (9.6-12.0); Monocytes # 0.5 10*3/uL (0.11-0.8); Monocytes % 11.8 % (1.7-12.7); Neutrophils # 2.2 10*3/uL (1.4-7.4); Neutrophils % 50.6 % (38.7-73.9); Platelet Count 143 T/CUMM (130-400); Red Blood Count 3.12 MC/CUMM (3.8-5.5); Red Cell Distribution Width 13.4 % (9.3-17.3); White Blood Count 4.4 T/CUMM (4-12)
[2017-09-27] MEDS ORDERED: ALBUTEROL/IPRATROPIUM 3 ML NEB RESP TX STA (09:50)
[2017-09-27] MEDS ORDERED: ONDANSETRON 4 MG/2 ML VIAL ONE (09:55)
[2017-09-27] MEDS ORDERED: PROPOFOL 200 MG/20 ML VIAL IV ONE (10:19)
[2017-09-27] MEDS ORDERED: LIDOCAINE 2% 5 ML VIAL ONE (10:19)
[2017-09-27] MEDS: DICYCLOMINE 10 MG CAPSULE PO SCH ×4 (10:58→21:04)
[2017-09-27] MEDS: LACTULOSE 20 GM/30 ML UDCUP PO PRN (11:46)
[2017-09-27] MEDS: CARVEDILOL 12.5 MG TABLET PO SCH ×2 (11:46→21:04)
[2017-09-27] MEDS: amLODIPine 10 MG TABLET PO SCH (11:46)
[2017-09-27] MEDS: ASPIRIN EC 81 MG TABLET PO SCH (11:46)
[2017-09-27] MEDS: TAMSULOSIN 0.4 MG CAPSULE PO SCH ×2 (11:46→21:04)
[2017-09-27] MEDS: FINASTERIDE 5 MG TABLET PO SCH (11:46)
[2017-09-27] MEDS: MORPHINE 4 MG/1 ML VIAL IV PRN (21:03)
[2017-09-27] MEDS: ONDANSETRON 4 MG/2 ML VIAL IV PRN (21:03)
[2017-09-28 04:57] LABS: Basophils % 0.4 % (0.0-0.8); Hematocrit 23.9 VOL% (42.0-52.0); Immature Granulocytes % 0.2 %; Immature Granulocytes Absolute 0.01 #; Lymphocytes # 1.9 10*3/uL (1.4-4.0); Lymphocytes % 41.7 % (21.2-54.2); Mean Corpuscular HGB Conc 33.5 GM/DL (32-36); Mean Corpuscular Hemoglobin 30 PG (27-34); Mean Corpuscular Volume 88.5 FL (87-102); Mean Platelet Volume 10.5 FL (9.6-12.0); Monocytes # 0.5 10*3/uL (0.11-0.8); Monocytes % 10.5 % (1.7-12.7); Neutrophils # 2.1 10*3/uL (1.4-7.4); Neutrophils % 47.2 % (38.7-73.9); Platelet Count 145 T/CUMM (130-400); Red Cell Distribution Width 13.5 % (9.3-17.3); White Blood Count 4.5 T/CUMM (4-12)
[2017-09-28 05:38] LABS: Calcium 7.6 MG/DL (8.5-10.1); Osmolality,Calculated 277.5 MOS/KG (273-304); Potassium 4.2 MMOL/L (3.5-5.1)
[2017-09-28] MEDS: INSULIN LISPRO 100 UNIT/ML SUBCUT SCH ×3 (05:39→18:23)
[2017-09-28] MEDS: SODIUM CHLORIDE 0.9% 1,000 ML IV SCH ×5 (05:39→23:00)
[2017-09-28] MEDS: LEVOTHYROXINE 50 MCG TABLET PO SCH (06:01)
[2017-09-28] MEDS: DICYCLOMINE 10 MG CAPSULE PO SCH ×4 (08:48→22:28)
[2017-09-28] MEDS: amLODIPine 10 MG TABLET PO SCH (08:48)
[2017-09-28] MEDS: FINASTERIDE 5 MG TABLET PO SCH (08:48)
[2017-09-28] MEDS: ASPIRIN EC 81 MG TABLET PO SCH (08:48)
[2017-09-28] MEDS: TAMSULOSIN 0.4 MG CAPSULE PO SCH ×2 (08:48→22:28)
[2017-09-28] MEDS: ONDANSETRON 4 MG/2 ML VIAL IV PRN (08:49)
[2017-09-28] MEDS: CARVEDILOL 12.5 MG TABLET PO SCH ×2 (08:49→22:28)
[2017-09-28] MEDS: buPROPion SR 150 MG TABLET PO SCH (12:48)
[2017-09-28] MEDS: traMADol 50 MG TABLET PO PRN (18:24)
[2017-09-28] MEDS: MORPHINE 4 MG/1 ML VIAL IV PRN (22:36)
[2017-09-29] MEDS: INSULIN LISPRO 100 UNIT/ML SUBCUT SCH ×4 (01:14→18:32)
[2017-09-29 05:11] LABS: Basophils % 0.3 % (0.0-0.8); Hematocrit 25.2 VOL% (42.0-52.0); Hemoglobin 8.3 GM/DL (14.0-18.0); Immature Granulocytes % 0.3 %; Immature Granulocytes Absolute 0.01 #; Lymphocytes # 1.6 10*3/uL (1.4-4.0); Lymphocytes % 52.3 % (21.2-54.2); Mean Corpuscular HGB Conc 32.9 GM/DL (32-36); Mean Corpuscular Hemoglobin 30 PG (27-34); Mean Corpuscular Volume 91.3 FL (87-102); Mean Platelet Volume 10.6 FL (9.6-12.0); Monocytes # 0.4 10*3/uL (0.11-0.8); Monocytes % 11.5 % (1.7-12.7); Neutrophils # 1.1 10*3/uL (1.4-7.4); Neutrophils % 35.6 % (38.7-73.9); Platelet Count 115 T/CUMM (130-400); Red Blood Count 2.76 MC/CUMM (3.8-5.5); Red Cell Distribution Width 13.4 % (9.3-17.3)
[2017-09-29] MEDS: LEVOTHYROXINE 50 MCG TABLET PO SCH (06:21)
[2017-09-29] MEDS: SODIUM CHLORIDE 0.9% 1,000 ML IV SCH ×4 (06:54→16:51)
[2017-09-29 07:21] LABS: Atypical Lymphocytes Moderate; Eosinophils 2 % (0-10); Hypochromasia 1+; Lymphocytes 43 % (20-55); Segmented Neutrophils 45 % (50-85); Total Cells Counted 100
[2017-09-29 07:22] LABS: Platelet Estimate Decreased
[2017-09-29] MEDS: FINASTERIDE 5 MG TABLET PO SCH (09:57)
[2017-09-29] MEDS: DICYCLOMINE 10 MG CAPSULE PO SCH ×5 (09:57→22:43)
[2017-09-29] MEDS: buPROPion SR 150 MG TABLET PO SCH (09:57)
[2017-09-29] MEDS: traMADol 50 MG TABLET PO PRN ×2 (09:57→15:20)
[2017-09-29] MEDS: amLODIPine 10 MG TABLET PO SCH (09:58)
[2017-09-29] MEDS: TAMSULOSIN 0.4 MG CAPSULE PO SCH ×2 (09:58→22:42)
[2017-09-29] MEDS: ASPIRIN EC 81 MG TABLET PO SCH (09:58)
[2017-09-29] MEDS: PANTOPRAZOLE 40 MG TABLET PO SCH (09:58)
[2017-09-29] MEDS: CARVEDILOL 12.5 MG TABLET PO SCH ×2 (10:21→22:42)
[2017-09-30] MEDS: SODIUM CHLORIDE 0.9% 1,000 ML IV SCH ×4 (01:00→20:25)
[2017-09-30] MEDS: INSULIN LISPRO 100 UNIT/ML SUBCUT SCH ×4 (04:43→17:46)
[2017-09-30 05:51] LABS: Calcium 8.6 MG/DL (8.5-10.1); Potassium 4.5 MMOL/L (3.5-5.1)
[2017-09-30 06:14] LABS: Folate 9.6 NG/ML (5.4-24.0)
[2017-09-30] MEDS: LEVOTHYROXINE 50 MCG TABLET PO SCH (06:32)
[2017-09-30 07:33] LABS: Basophils % 0.5 % (0.0-0.8); Hematocrit 29.9 VOL% (42.0-52.0); Hemoglobin 10.1 GM/DL (14.0-18.0); Immature Granulocytes % 0.2 %; Immature Granulocytes Absolute 0.01 #; Lymphocytes % 23.2 % (21.2-54.2); Mean Corpuscular HGB Conc 33.8 GM/DL (32-36); Mean Corpuscular Hemoglobin 30 PG (27-34); Mean Corpuscular Volume 87.7 FL (87-102); Mean Platelet Volume 10.3 FL (9.6-12.0); Monocytes # 0.3 10*3/uL (0.11-0.8); Monocytes % 6.6 % (1.7-12.7); Neutrophils # 2.8 10*3/uL (1.4-7.4); Neutrophils % 69.5 % (38.7-73.9); Platelet Count 149 T/CUMM (130-400); Red Blood Count 3.41 MC/CUMM (3.8-5.5); Red Cell Distribution Width 13.4 % (9.3-17.3); White Blood Count 4.1 T/CUMM (4-12)
[2017-09-30] MEDS: CARVEDILOL 12.5 MG TABLET PO SCH ×2 (09:26→21:08)
[2017-09-30] MEDS: buPROPion SR 150 MG TABLET PO SCH (09:26)
[2017-09-30] MEDS: amLODIPine 10 MG TABLET PO SCH (09:26)
[2017-09-30] MEDS: TAMSULOSIN 0.4 MG CAPSULE PO SCH ×2 (09:26→21:08)
[2017-09-30] MEDS: FINASTERIDE 5 MG TABLET PO SCH (09:27)
[2017-09-30] MEDS: DICYCLOMINE 10 MG CAPSULE PO SCH ×4 (09:27→21:08)
[2017-09-30] MEDS: PANTOPRAZOLE 40 MG TABLET PO SCH (09:27)
[2017-09-30] MEDS: ASPIRIN EC 81 MG TABLET PO SCH (09:27)
[2017-09-30] MEDS ORDERED: ZIPRASIDONE 20 MG/1 ML VIAL IM PRN (21:45)
[2017-10-01] MEDS: INSULIN LISPRO 100 UNIT/ML SUBCUT SCH ×4 (00:15→17:12)
[2017-10-01] MEDS: SODIUM CHLORIDE 0.9% 1,000 ML IV SCH ×3 (06:00→17:11)
[2017-10-01] MEDS: CARVEDILOL 12.5 MG TABLET PO SCH ×2 (09:18→20:53)
[2017-10-01] MEDS: LEVOTHYROXINE 50 MCG TABLET PO SCH (09:18)
[2017-10-01] MEDS: FINASTERIDE 5 MG TABLET PO SCH (09:18)
[2017-10-01] MEDS: ASPIRIN EC 81 MG TABLET PO SCH (09:18)
[2017-10-01] MEDS: TAMSULOSIN 0.4 MG CAPSULE PO SCH ×2 (09:18→20:53)
[2017-10-01] MEDS: buPROPion SR 150 MG TABLET PO SCH (09:18)
[2017-10-01] MEDS: PANTOPRAZOLE 40 MG TABLET PO SCH (09:18)
[2017-10-01] MEDS: DICYCLOMINE 10 MG CAPSULE PO SCH ×4 (09:18→20:53)
[2017-10-01] MEDS: amLODIPine 10 MG TABLET PO SCH (09:18)
[2017-10-01] MEDS: POLYETHYLENE GLYCOL POWDER 17 GM PACK PO SCH (10:08)
[2017-10-02] MEDS: INSULIN LISPRO 100 UNIT/ML SUBCUT SCH ×3 (00:48→12:03)
[2017-10-02] MEDS: SODIUM CHLORIDE 0.9% 1,000 ML IV SCH (02:19)
[2017-10-02 05:23] LABS: Basophils % 0.2 % (0.0-0.8); Hematocrit 27.7 VOL% (42.0-52.0); Hemoglobin 9.4 GM/DL (14.0-18.0); Immature Granulocytes % 0.2 %; Immature Granulocytes Absolute 0.01 #; Lymphocytes # 1.4 10*3/uL (1.4-4.0); Lymphocytes % 32.6 % (21.2-54.2); Mean Corpuscular HGB Conc 33.9 GM/DL (32-36); Mean Corpuscular Hemoglobin 29 PG (27-34); Mean Corpuscular Volume 86.3 FL (87-102); Mean Platelet Volume 10.3 FL (9.6-12.0); Monocytes # 0.5 10*3/uL (0.11-0.8); Monocytes % 11.8 % (1.7-12.7); Neutrophils # 2.3 10*3/uL (1.4-7.4); Neutrophils % 55.2 % (38.7-73.9); Platelet Count 144 T/CUMM (130-400); Red Blood Count 3.21 MC/CUMM (3.8-5.5); Red Cell Distribution Width 13.3 % (9.3-17.3); White Blood Count 4.1 T/CUMM (4-12)
[2017-10-02 05:55] LABS: Calcium 8.2 MG/DL (8.5-10.1); Osmolality,Calculated 274.2 MOS/KG (273-304)
[2017-10-02] MEDS: LEVOTHYROXINE 50 MCG TABLET PO SCH (06:01)
[2017-10-02] MEDS: DICYCLOMINE 10 MG CAPSULE PO SCH ×2 (07:29→12:05)
[2017-10-02] MEDS: POLYETHYLENE GLYCOL POWDER 17 GM PACK PO SCH (08:07)
[2017-10-02] MEDS: amLODIPine 10 MG TABLET PO SCH (08:07)
[2017-10-02] MEDS: FINASTERIDE 5 MG TABLET PO SCH (08:07)
[2017-10-02] MEDS: ASPIRIN EC 81 MG TABLET PO SCH (08:07)
[2017-10-02] MEDS: buPROPion SR 150 MG TABLET PO SCH (08:07)
[2017-10-02] MEDS: PANTOPRAZOLE 40 MG TABLET PO SCH (08:07)
[2017-10-02] MEDS: TAMSULOSIN 0.4 MG CAPSULE PO SCH (08:07)
[2017-10-02] MEDS: CARVEDILOL 12.5 MG TABLET PO SCH (08:14)
[2017-10-02 11:57] VITALS: BP 168/76
== END 2017-10-02 15:08 | disposition swing bed (61) | DRG 392 ==
LOC: N.ED 18:41 → SUATTDRO 23:40 → N.EDINP 23:40 → N.TELES 09-25 00:11
PROVIDERS: ADMIT Internal Medicine; ATTEND Internal Medicine

== ENCOUNTER 2017-10-17 15:33 | Inpatient (IN) ==
[2017-10-17] MEDS ORDERED: ALUM/MAG/SIMETH/LIDO VISC 1:1 30 ML BOTTLE PO STA (16:08)
[2017-10-17] MEDS ORDERED: MORPHINE 4 MG/1 ML VIAL IV STA (16:08)
[2017-10-17] MEDS ORDERED: ASPIRIN 325 MG TABLET PO STA (16:08)
[2017-10-17] MEDS ORDERED: ONDANSETRON 4 MG/2 ML VIAL IV STA (16:08)
[2017-10-17 16:35] LABS: Basophils % 0.6 % (0.0-0.8); Hematocrit 25.2 VOL% (42.0-52.0); Hemoglobin 8.6 GM/DL (14.0-18.0); Immature Granulocytes % 0.3 %; Immature Granulocytes Absolute 0.02 #; Lymphocytes # 2.8 10*3/uL (1.4-4.0); Lymphocytes % 40.9 % (21.2-54.2); Mean Corpuscular HGB Conc 34.1 GM/DL (32-36); Mean Corpuscular Hemoglobin 30 PG (27-34); Mean Corpuscular Volume 86.6 FL (87-102); Mean Platelet Volume 9.3 FL (9.6-12.0); Monocytes # 0.7 10*3/uL (0.11-0.8); Monocytes % 9.6 % (1.7-12.7); Neutrophils # 3.4 10*3/uL (1.4-7.4); Neutrophils % 48.6 % (38.7-73.9); Platelet Count 266 T/CUMM (130-400); Red Blood Count 2.91 MC/CUMM (3.8-5.5); Red Cell Distribution Width 13.2 % (9.3-17.3); White Blood Count 6.9 T/CUMM (4-12)
[2017-10-17 16:41] LABS: Alanine Aminotransferase 30 U/L (16-61); Albumin 3.2 G/DL (3.4-5.0); Alkaline Phosphatase 118 U/L (45-117); Aspartate Amino Transferase 27 U/L (0-37); Bilirubin,Total < 0.39 MG/DL (0.2-1.0); Blood Urea Nitrogen 45 MG/DL (7-18); Calcium 8.2 MG/DL (8.5-10.1); Glucose 72 MG/DL (74-106); Osmolality,Calculated 272.7 MOS/KG (273-304); Potassium 4.7 MMOL/L (3.5-5.1); Sodium 131 MMOL/L (136-145); Total Protein 6.5 G/DL (6.4-8.3)
[2017-10-17 16:45] LABS: INR 1.1; PT Patient Result 11.3 SECS
[2017-10-17] MEDS ORDERED: SODIUM CHLORIDE 0.9% 500 ML IV STA (16:59)
[2017-10-17] MEDS ORDERED: MORPHINE 4 MG/1 ML VIAL IV PRN (18:25)
[2017-10-17] MEDS ORDERED: ONDANSETRON 4 MG/2 ML VIAL IV PRN (18:25)
[2017-10-17] MEDS ORDERED: ZALEPLON 5 MG CAPSULE PO PRN (18:25)
[2017-10-17] MEDS ORDERED: NITROGLYCERIN SL 0.4 MG TABLET SL PRN (18:25)
[2017-10-17] MEDS ORDERED: SODIUM CHLORIDE 0.9% 500 ML IV ONE (18:41)
[2017-10-17 20:59] LABS: Troponin I Only < 0.015 NG/ML (0.00-0.045)
[2017-10-17] MEDS ORDERED: CARVEDILOL 6.25 MG TABLET PO SCH (21:00)
[2017-10-17] MEDS ORDERED: ENOXAPARIN 30 MG/0.3 ML SYRINGE SUBCUT SCH (21:00)
[2017-10-17] MEDS ORDERED: CARVEDILOL 12.5 MG TABLET PO SCH (21:00)
[2017-10-17] MEDS: miSOPROStol 200 MCG TABLET PO SCH (21:01)
[2017-10-17] MEDS: TAMSULOSIN 0.4 MG CAPSULE PO SCH (21:01)
[2017-10-17] MEDS: METOCLOPRAMIDE 5 MG TABLET PO SCH (21:01)
[2017-10-17] MEDS: ATORVASTATIN 20 MG TABLET PO SCH (21:01)
[2017-10-17] MEDS: SODIUM CHLORIDE 0.9% 1,000 ML IV SCH (21:01)
[2017-10-17] MEDS: busPIRone 5 MG TABLET PO SCH (21:01)
[2017-10-17] MEDS: FAMOTIDINE 20 MG TABLET PO SCH (21:01)
[2017-10-18] MEDS: SODIUM CHLORIDE 0.9% 1,000 ML IV SCH (02:10)
[2017-10-18 05:44] LABS: Basophils % 0.7 % (0.0-0.8); Hematocrit 27.4 VOL% (42.0-52.0); Hemoglobin 9.3 GM/DL (14.0-18.0); Immature Granulocytes % 0.2 %; Immature Granulocytes Absolute 0.01 #; Lymphocytes # 1.6 10*3/uL (1.4-4.0); Lymphocytes % 40.1 % (21.2-54.2); Mean Corpuscular HGB Conc 33.9 GM/DL (32-36); Mean Corpuscular Hemoglobin 29 PG (27-34); Mean Corpuscular Volume 86.4 FL (87-102); Mean Platelet Volume 9.9 FL (9.6-12.0); Monocytes # 0.4 10*3/uL (0.11-0.8); Monocytes % 9.1 % (1.7-12.7); Neutrophils % 49.9 % (38.7-73.9); Platelet Count 220 T/CUMM (130-400); Red Blood Count 3.17 MC/CUMM (3.8-5.5); Red Cell Distribution Width 13.2 % (9.3-17.3); White Blood Count 4.1 T/CUMM (4-12)
[2017-10-18] MEDS: LEVOTHYROXINE 50 MCG TABLET PO SCH (06:06)
[2017-10-18 06:25] LABS: Calcium 7.9 MG/DL (8.5-10.1); Osmolality,Calculated 279.1 MOS/KG (273-304); Potassium 4.9 MMOL/L (3.5-5.1)
[2017-10-18] MEDS ORDERED: amLODIPine 10 MG TABLET PO SCH (09:00)
[2017-10-18] MEDS: busPIRone 5 MG TABLET PO SCH ×3 (09:49→21:15)
[2017-10-18] MEDS: ASPIRIN EC 325 MG TABLET PO SCH (09:49)
[2017-10-18] MEDS: TAMSULOSIN 0.4 MG CAPSULE PO SCH ×2 (09:49→21:15)
[2017-10-18] MEDS: miSOPROStol 200 MCG TABLET PO SCH ×4 (09:49→21:15)
[2017-10-18] MEDS: FAMOTIDINE 20 MG TABLET PO SCH ×2 (09:49→21:15)
[2017-10-18] MEDS: METOCLOPRAMIDE 5 MG TABLET PO SCH ×4 (09:49→21:15)
[2017-10-18] MEDS: FINASTERIDE 5 MG TABLET PO SCH (09:49)
[2017-10-18] MEDS ORDERED: DEXTROSE 50% 25 GM/50 ML VIAL IV PRN (16:58)
[2017-10-18] MEDS ORDERED: GLUCAGON 1 MG VIAL IM PRN (16:58)
[2017-10-18] MEDS ORDERED: INSULIN LISPRO 100 UNIT/ML SUBCUT SCH (21:00)
[2017-10-18] MEDS: ENOXAPARIN 40 MG/0.4 ML SYRINGE SUBCUT SCH (21:15)
[2017-10-18] MEDS: ATORVASTATIN 20 MG TABLET PO SCH (21:15)
[2017-10-18] MEDS: INSULIN LISPRO 100 UNIT/ML SUBCUT SCH (21:16)
[2017-10-19 05:57] LABS: Basophils % 0.2 % (0.0-0.8); Hematocrit 26.7 VOL% (42.0-52.0); Hemoglobin 8.9 GM/DL (14.0-18.0); Immature Granulocytes % 0.4 %; Immature Granulocytes Absolute 0.02 #; Lymphocytes # 1.4 10*3/uL (1.4-4.0); Lymphocytes % 26.6 % (21.2-54.2); Mean Corpuscular HGB Conc 33.3 GM/DL (32-36); Mean Corpuscular Hemoglobin 29 PG (27-34); Mean Corpuscular Volume 87.5 FL (87-102); Mean Platelet Volume 9.6 FL (9.6-12.0); Monocytes # 0.4 10*3/uL (0.11-0.8); Neutrophils # 3.4 10*3/uL (1.4-7.4); Neutrophils % 64.8 % (38.7-73.9); Platelet Count 183 T/CUMM (130-400); Red Blood Count 3.05 MC/CUMM (3.8-5.5); Red Cell Distribution Width 13.2 % (9.3-17.3); White Blood Count 5.2 T/CUMM (4-12)
[2017-10-19] MEDS: SODIUM CHLORIDE 0.9% 1,000 ML IV SCH ×3 (06:01→19:30)
[2017-10-19] MEDS: LEVOTHYROXINE 50 MCG TABLET PO SCH (06:01)
[2017-10-19 06:41] LABS: Calcium 8.6 MG/DL (8.5-10.1); Osmolality,Calculated 281.7 MOS/KG (273-304); Potassium 4.8 MMOL/L (3.5-5.1)
[2017-10-19 06:47] LABS: Risk Ratio 2.38; VLDL CHOLESTEROL 15.2 MG/DL
[2017-10-19] MEDS: TAMSULOSIN 0.4 MG CAPSULE PO SCH ×2 (08:51→21:22)
[2017-10-19] MEDS: FAMOTIDINE 20 MG TABLET PO SCH ×2 (08:51→21:22)
[2017-10-19] MEDS: ISOSORBIDE MONONITRATE 30 MG TABLET PO SCH (08:51)
[2017-10-19] MEDS: miSOPROStol 200 MCG TABLET PO SCH ×4 (08:51→21:22)
[2017-10-19] MEDS: ASPIRIN EC 325 MG TABLET PO SCH (08:51)
[2017-10-19] MEDS: METOPROLOL TARTRATE 25 MG TABLET PO SCH ×2 (08:51→21:22)
[2017-10-19] MEDS: busPIRone 5 MG TABLET PO SCH ×3 (08:52→21:22)
[2017-10-19] MEDS: METOCLOPRAMIDE 5 MG TABLET PO SCH ×4 (08:52→21:22)
[2017-10-19] MEDS: INSULIN LISPRO 100 UNIT/ML SUBCUT SCH ×4 (08:52→21:23)
[2017-10-19] MEDS: FINASTERIDE 5 MG TABLET PO SCH (08:52)
[2017-10-19] MEDS: ALUM/MAG/SIMETH/LIDO VISC 1:1 30 ML BOTTLE PO PRN ×2 (11:47→18:17)
[2017-10-19] MEDS ORDERED: MAGNESIUM CITRATE 300 ML BOTTLE PO ONE (17:43)
[2017-10-19] MEDS: traMADol 50 MG TABLET PO PRN (18:23)
[2017-10-19] MEDS: ATORVASTATIN 20 MG TABLET PO SCH (21:22)
[2017-10-19] MEDS: ENOXAPARIN 40 MG/0.4 ML SYRINGE SUBCUT SCH (21:22)
[2017-10-20 04:13] LABS: Calcium 8.3 MG/DL (8.5-10.1); Potassium 4.9 MMOL/L (3.5-5.1)
[2017-10-20] MEDS: SODIUM CHLORIDE 0.9% 1,000 ML IV SCH (05:32)
[2017-10-20] MEDS: LEVOTHYROXINE 50 MCG TABLET PO SCH (06:08)
[2017-10-20] MEDS: INSULIN LISPRO 100 UNIT/ML SUBCUT SCH ×2 (08:24→12:45)
[2017-10-20] MEDS ORDERED: ASPIRIN EC 81 MG TABLET PO SCH (09:00)
[2017-10-20] MEDS: FAMOTIDINE 20 MG TABLET PO SCH (09:42)
[2017-10-20] MEDS: busPIRone 5 MG TABLET PO SCH (09:43)
[2017-10-20] MEDS: METOCLOPRAMIDE 5 MG TABLET PO SCH ×2 (09:43→12:46)
[2017-10-20] MEDS: ISOSORBIDE MONONITRATE 30 MG TABLET PO SCH (09:43)
[2017-10-20] MEDS: FINASTERIDE 5 MG TABLET PO SCH (09:43)
[2017-10-20] MEDS: traMADol 50 MG TABLET PO PRN (09:43)
[2017-10-20] MEDS: TAMSULOSIN 0.4 MG CAPSULE PO SCH (09:43)
[2017-10-20] MEDS: METOPROLOL TARTRATE 25 MG TABLET PO SCH (09:43)
[2017-10-20] MEDS: miSOPROStol 200 MCG TABLET PO SCH ×2 (09:43→12:46)
[2017-10-20] MEDS ORDERED: FUROSEMIDE 20 MG TABLET PO ONE (09:56)
[2017-10-20] MEDS ORDERED: PANTOPRAZOLE 20 MG TABLET PO SCH (11:30)
[2017-10-20 11:51] VITALS: BP 145/68
== END 2017-10-20 14:49 | disposition home or self-care (01) | DRG 292 ==
LOC: EDUNIT# → EDBD → N.ED 15:33 → N.EDINP 17:14 → N.2E 18:09
PROVIDERS: ADMIT Internal Medicine; ATTEND Internal Medicine

== ENCOUNTER 2017-10-30 13:10 | Inpatient (IN) ==
[2017-10-30] MEDS ORDERED: SODIUM CHLORIDE 0.9% 500 ML IV STA (13:42)
[2017-10-30 14:50] LABS: Hematocrit 21.2 VOL% (42.0-52.0); Hemoglobin 7.5 GM/DL (14.0-18.0); Immature Granulocytes Absolute 0.05 #; Lymphocytes # 0.4 10*3/uL (1.4-4.0); Lymphocytes % 8.2 % (21.2-54.2); Mean Corpuscular HGB Conc 35.4 GM/DL (32-36); Mean Corpuscular Hemoglobin 29 PG (27-34); Mean Corpuscular Volume 80.9 FL (87-102); Mean Platelet Volume 12.9 FL (9.6-12.0); Monocytes # 0.3 10*3/uL (0.11-0.8); Monocytes % 5.4 % (1.7-12.7); Neutrophils # 4.2 10*3/uL (1.4-7.4); Neutrophils % 85.4 % (38.7-73.9); Platelet Count 136 T/CUMM (130-400); Red Blood Count 2.62 MC/CUMM (3.8-5.5); Red Cell Distribution Width 14.4 % (9.3-17.3)
[2017-10-30 15:14] LABS: Band Neutrophils 5 % (0-10); Hypochromasia Slight; Lymphocytes 8 % (20-55); Microcytosis Slight; Nucleated Red Blood Cells 1 (0-5); Platelet Estimate Adequate; Segmented Neutrophils 82 % (50-85); Total Cells Counted 100
[2017-10-30 15:16] LABS: Apearance,Urine CLOUDY (Clear); Bacteria,Urine Many /HPF (Few); Bilirubin,Urine Negative (Negative); Blood, Urine Small mg/dL (Negative); Glucose,Urine (UA) Negative (Negative); Ketones,Urine Negative (Negative); Mucus,Urine Occasional /LPF (Occasional); Nitrite,Urine Negative (Negative); Protein,Urine 30 MG/DL; Squamous Epithelial Cell,Urine Occasional /HPF (0-10); Urine Color Amber (Yellow); Urine Specific Gravity 1.012 (1.001-1.035); WBC,Urine 73 /HPF (0-6)
[2017-10-30 15:20] LABS: Alanine Aminotransferase 51 U/L (16-61); Albumin 1.7 G/DL (3.4-5.0); Alkaline Phosphatase 153 U/L (45-117); Aspartate Amino Transferase 108 U/L (0-37); Blood Urea Nitrogen 183 MG/DL (7-18); Calcium 7.3 MG/DL (8.5-10.1); Glucose 298 MG/DL (74-106); Osmolality,Calculated 341.1 MOS/KG (273-304); Sodium 135 MMOL/L (136-145); Total Protein 5.7 G/DL (6.4-8.3); Troponin I Only < 0.015 NG/ML (0.00-0.045)
[2017-10-30] MEDS ORDERED: LEVOFLOXACIN INJ 500 MG in PREMIX 1 EACH IV STA (15:21)
[2017-10-30] MEDS ORDERED: DEXTROSE 50% 25 GM/50 ML VIAL IV PRN (16:37)
[2017-10-30] MEDS ORDERED: GLUCAGON 1 MG VIAL IM PRN (16:37)
[2017-10-30] MEDS ORDERED: ONDANSETRON 4 MG/2 ML VIAL IV PRN (16:37)
[2017-10-30] MEDS ORDERED: MECLIZINE 25 MG TABLET PO PRN (16:41)
[2017-10-30] MEDS ORDERED: BISACODYL 10 MG SUPP RECTAL PRN (16:41)
[2017-10-30] MEDS ORDERED: BISACODYL 5 MG TABLET PO PRN (16:41)
[2017-10-30] MEDS ORDERED: SODIUM CHLORIDE 0.9% 1,000 ML IV PRN (16:43)
[2017-10-30] MEDS: SODIUM CHLORIDE 0.9% 1,000 ML IV SCH (18:29)
[2017-10-30] MEDS: PIPERACILLIN/TAZOBACTAM 3,375 MG in SODIUM CHLORIDE 0.9% 100 ML IV SCH (18:39)
[2017-10-30] MEDS: TAMSULOSIN 0.4 MG CAPSULE PO SCH (21:55)
[2017-10-30] MEDS: DICYCLOMINE 10 MG CAPSULE PO SCH (21:55)
[2017-10-30] MEDS: ATORVASTATIN 20 MG TABLET PO SCH (21:55)
[2017-10-30] MEDS: INSULIN LISPRO 100 UNIT/ML SUBCUT SCH (22:00)
[2017-10-31 04:41] LABS: Basophils % 0.2 % (0.0-0.8); Hematocrit 23.2 VOL% (42.0-52.0); Hemoglobin 8.5 GM/DL (14.0-18.0); Immature Granulocytes % 0.9 %; Immature Granulocytes Absolute 0.04 #; Lymphocytes # 0.4 10*3/uL (1.4-4.0); Lymphocytes % 9.9 % (21.2-54.2); Mean Corpuscular HGB Conc 36.6 GM/DL (32-36); Mean Corpuscular Hemoglobin 29 PG (27-34); Mean Corpuscular Volume 79.2 FL (87-102); Mean Platelet Volume 12.7 FL (9.6-12.0); Monocytes # 0.2 10*3/uL (0.11-0.8); Monocytes % 4.6 % (1.7-12.7); Neutrophils # 3.7 10*3/uL (1.4-7.4); Neutrophils % 84.4 % (38.7-73.9); Platelet Count 127 T/CUMM (130-400); Red Blood Count 2.93 MC/CUMM (3.8-5.5); Red Cell Distribution Width 14.5 % (9.3-17.3); White Blood Count 4.3 T/CUMM (4-12)
[2017-10-31 05:13] LABS: Band Neutrophils 9 % (0-10); Hypochromasia 1+; Lymphocytes 8 % (20-55); Nucleated Red Blood Cells 1 (0-5); Segmented Neutrophils 77 % (50-85); Total Cells Counted 100
[2017-10-31 05:14] LABS: Microcytosis Slight; Target Cells Slight
[2017-10-31 05:16] LABS: Ovalocytes Slight; Platelet Estimate Adequate
[2017-10-31 05:18] LABS: Albumin 1.6 G/DL (3.4-5.0); Bilirubin,Total 3.3 MG/DL (0.2-1.0); Calcium 7.5 MG/DL (8.5-10.1); Osmolality,Calculated 342.7 MOS/KG (273-304); Potassium 3.8 MMOL/L (3.5-5.1); Total Protein 5.7 G/DL (6.4-8.3)
[2017-10-31] MEDS: PIPERACILLIN/TAZOBACTAM 3,375 MG in SODIUM CHLORIDE 0.9% 100 ML IV SCH (06:02)
[2017-10-31] MEDS: LEVOTHYROXINE 50 MCG TABLET PO SCH (06:05)
[2017-10-31] MEDS ORDERED: INSULIN NPH 100 UNIT/ML SUBCUT SCH (09:00)
[2017-10-31] MEDS ORDERED: PANTOPRAZOLE 40 MG TABLET PO SCH (09:00)
[2017-10-31] MEDS ORDERED: ASPIRIN EC 81 MG TABLET PO SCH (09:00)
[2017-10-31] MEDS ORDERED: SKIN HEALING OINT (AQUAPHOR) 50 GM TUBE TOP PRN (10:22)
[2017-10-31] MEDS: DICYCLOMINE 10 MG CAPSULE PO SCH ×5 (12:41→22:19)
[2017-10-31] MEDS: PIPERACILLIN/TAZOBACTAM 2,250 MG in SODIUM CHLORIDE 0.9% 100 ML IV SCH (13:45)
[2017-10-31] MEDS: FINASTERIDE 5 MG TABLET PO SCH (14:16)
[2017-10-31] MEDS: TAMSULOSIN 0.4 MG CAPSULE PO SCH ×3 (14:16→22:19)
[2017-10-31] MEDS: METOCLOPRAMIDE 10 MG TABLET PO SCH (14:17)
[2017-10-31] MEDS: INSULIN LISPRO 100 UNIT/ML SUBCUT SCH (14:19)
[2017-10-31] MEDS ORDERED: AMINO ACIDS/DEXT/LYTES 4.25-5% 2,000 ML IV SCH (17:00)
[2017-10-31] MEDS ORDERED: DILTIAZEM 50 MG/10 ML VIAL IV ONE (19:07)
[2017-10-31] MEDS ORDERED: AMIODARONE INJ 150 MG in DEXTROSE 5% 100 ML IV ONE ×2 (19:28→20:00)
[2017-10-31] MEDS ORDERED: AMIODARONE INJ 450 MG in DEXTROSE 5% 241 ML IV SCH (19:30)
[2017-10-31] MEDS: SODIUM CHLORIDE 0.9% 250 ML IV ONE ×2 (20:02→20:51)
[2017-10-31] MEDS: ATORVASTATIN 20 MG TABLET PO SCH ×2 (22:19)
[2017-10-31] MEDS ORDERED: NOREPINEPHRINE 4 MG/4 ML VIAL IV ONE (23:35)
[2017-10-31] MEDS: NOREPINEPHRINE 8 MG in SODIUM CHLORIDE 0.9% 242 ML IV PRN (23:41)
[2017-10-31] MEDS: SODIUM CHLORIDE 0.9% 1,000 ML IV SCH (23:43)
[2017-11-01] MEDS ORDERED: AMIODARONE INJ 450 MG in DEXTROSE 5% 241 ML IV SCH (01:30)
[2017-11-01] MEDS: PIPERACILLIN/TAZOBACTAM 2,250 MG in SODIUM CHLORIDE 0.9% 100 ML IV SCH (01:59)
[2017-11-01 06:25] LABS: Basophils % 0.4 % (0.0-0.8); Hematocrit 27.4 VOL% (42.0-52.0); Hemoglobin 9.4 GM/DL (14.0-18.0); Immature Granulocytes % 1.6 %; Immature Granulocytes Absolute 0.16 #; Lymphocytes # 0.8 10*3/uL (1.4-4.0); Lymphocytes % 8.1 % (21.2-54.2); Mean Corpuscular HGB Conc 34.3 GM/DL (32-36); Mean Corpuscular Hemoglobin 28 PG (27-34); Mean Platelet Volume 12.5 FL (9.6-12.0); Monocytes # 0.3 10*3/uL (0.11-0.8); Monocytes % 2.6 % (1.7-12.7); Neutrophils # 8.9 10*3/uL (1.4-7.4); Neutrophils % 87.3 % (38.7-73.9); Platelet Count 197 T/CUMM (130-400); Red Blood Count 3.34 MC/CUMM (3.8-5.5); Red Cell Distribution Width 14.9 % (9.3-17.3); White Blood Count 10.1 T/CUMM (4-12)
[2017-11-01] MEDS: LEVOTHYROXINE 50 MCG TABLET PO SCH (06:28)
[2017-11-01 06:40] LABS: Albumin 1.4 G/DL (3.4-5.0); Bilirubin,Total 2.3 MG/DL (0.2-1.0); Calcium 7.6 MG/DL (8.5-10.1); Osmolality,Calculated 353.5 MOS/KG (273-304); Potassium 4.1 MMOL/L (3.5-5.1); Total Protein 5.6 G/DL (6.4-8.3)
[2017-11-01 06:56] LABS: Band Neutrophils 8 % (0-10); Lymphocytes 8 % (20-55); Segmented Neutrophils 79 % (50-85); Total Cells Counted 100
[2017-11-01 06:57] LABS: Hypochromasia 1+; Platelet Estimate Adequate
[2017-11-01] MEDS: NOREPINEPHRINE 8 MG in SODIUM CHLORIDE 0.9% 242 ML IV PRN ×2 (07:21→18:28)
[2017-11-01] MEDS ORDERED: DEXTROSE 50% 25 GM/50 ML VIAL IV PRN (08:15)
[2017-11-01] MEDS ORDERED: GLUCAGON 1 MG VIAL IM PRN (08:15)
[2017-11-01 08:59] LABS: Amorphous Crystals,Urine Few /HPF (Few); Apearance,Urine CLOUDY (Clear); Bacteria,Urine Few /HPF (Few); Bilirubin,Urine Negative (Negative); Blood, Urine Large mg/dL (Negative); Glucose,Urine (UA) 50 mg/dL (Negative); Ketones,Urine Negative (Negative); Mucus,Urine Occasional /LPF (Occasional); Nitrite,Urine Negative (Negative); Protein,Urine Negative; RBC,Urine 39 /HPF (0-4); Squamous Epithelial Cell,Urine Occasional /HPF (0-10); Urine Color Yellow (Yellow); Urine Specific Gravity 1.013 (1.001-1.035); Urine Urobilinogen < 2.0 EU/DL (0.2-1.0); WBC,Urine 23 /HPF (0-6)
[2017-11-01] MEDS ORDERED: ASPIRIN EC 325 MG TABLET PO SCH (09:00)
[2017-11-01] MEDS: SODIUM CHLORIDE 0.9% 1,000 ML IV SCH (09:00)
[2017-11-01] MEDS: LANSOPRAZOLE ODT 30 MG TABLET NG SCH (09:21)
[2017-11-01] MEDS: TAMSULOSIN 0.4 MG CAPSULE PO SCH ×2 (09:21→20:24)
[2017-11-01] MEDS: DICYCLOMINE 10 MG CAPSULE PO SCH ×4 (09:21→20:24)
[2017-11-01] MEDS: ASPIRIN CHEW 81 MG TABLET PO SCH (09:21)
[2017-11-01] MEDS: METOCLOPRAMIDE 10 MG TABLET PO SCH (09:21)
[2017-11-01] MEDS: FINASTERIDE 5 MG TABLET PO SCH (09:22)
[2017-11-01] MEDS: INSULIN NPH/REGULAR 70/30 100 UNIT/ML SUBCUT SCH ×2 (13:28→17:38)
[2017-11-01] MEDS: PIPERACILLIN/TAZOBACTAM 3,375 MG in SODIUM CHLORIDE 0.9% 100 ML IV SCH (13:47)
[2017-11-01] MEDS: LINEZOLID INJ 600 MG in PREMIX 1 EACH IV SCH (16:26)
[2017-11-01] MEDS ORDERED: INSULIN NPH/REGULAR 70/30 100 UNIT/ML SUBCUT SCH (16:30)
[2017-11-01] MEDS: INSULIN REGULAR 100 UNIT/ML SUBCUT SCH (17:38)
[2017-11-01] MEDS: AMIODARONE 200 MG TABLET PO SCH (20:24)
[2017-11-02] MEDS: INSULIN REGULAR 100 UNIT/ML SUBCUT SCH ×5 (01:53→23:52)
[2017-11-02] MEDS: PIPERACILLIN/TAZOBACTAM 3,375 MG in SODIUM CHLORIDE 0.9% 100 ML IV SCH ×2 (01:53→12:24)
[2017-11-02] MEDS: SODIUM CHLORIDE 0.9% 1,000 ML IV SCH ×2 (01:58→06:38)
[2017-11-02] MEDS: LINEZOLID INJ 600 MG in PREMIX 1 EACH IV SCH ×2 (06:00→17:33)
[2017-11-02 06:24] LABS: Basophils % 0.3 % (0.0-0.8); Hematocrit 23.2 VOL% (42.0-52.0); Hemoglobin 8.2 GM/DL (14.0-18.0); Immature Granulocytes % 1.1 %; Immature Granulocytes Absolute 0.09 #; Lymphocytes # 0.6 10*3/uL (1.4-4.0); Lymphocytes % 7.8 % (21.2-54.2); Mean Corpuscular HGB Conc 35.3 GM/DL (32-36); Mean Corpuscular Hemoglobin 28 PG (27-34); Mean Corpuscular Volume 80.3 FL (87-102); Mean Platelet Volume 12.1 FL (9.6-12.0); Monocytes # 0.2 10*3/uL (0.11-0.8); Monocytes % 2.2 % (1.7-12.7); Neutrophils % 88.6 % (38.7-73.9); Platelet Count 167 T/CUMM (130-400); Red Blood Count 2.89 MC/CUMM (3.8-5.5); Red Cell Distribution Width 15.4 % (9.3-17.3); White Blood Count 7.9 T/CUMM (4-12)
[2017-11-02 06:47] LABS: Prealbumin 3.7 MG/DL (20-40)
[2017-11-02 07:01] LABS: Calcium 7.5 MG/DL (8.5-10.1); Osmolality,Calculated 349.8 MOS/KG (273-304); Potassium 3.3 MMOL/L (3.5-5.1)
[2017-11-02 07:17] LABS: Band Neutrophils 6 % (0-10); Burr Cells 2+; Hypochromasia Slight; Lymphocytes 7 % (20-55); Platelet Estimate Adequate; Segmented Neutrophils 85 % (50-85); Target Cells Slight; Total Cells Counted 100
[2017-11-02] MEDS: LEVOTHYROXINE 50 MCG TABLET PO SCH (08:27)
[2017-11-02] MEDS: INSULIN NPH/REGULAR 70/30 100 UNIT/ML SUBCUT SCH ×2 (08:47→17:03)
[2017-11-02] MEDS: TAMSULOSIN 0.4 MG CAPSULE PO SCH ×2 (09:04→20:04)
[2017-11-02] MEDS: FINASTERIDE 5 MG TABLET PO SCH (09:04)
[2017-11-02] MEDS: DICYCLOMINE 10 MG CAPSULE PO SCH ×4 (09:06→20:09)
[2017-11-02] MEDS: METOCLOPRAMIDE 10 MG TABLET PO SCH (09:07)
[2017-11-02] MEDS: LANSOPRAZOLE ODT 30 MG TABLET NG SCH (09:07)
[2017-11-02] MEDS: AMIODARONE 200 MG TABLET PO SCH ×2 (09:08→20:09)
[2017-11-02] MEDS: ASPIRIN CHEW 81 MG TABLET PO SCH (09:08)
[2017-11-02] MEDS ORDERED: POTASSIUM CHLORIDE 20 MEQ/15 ML UDCUP PER TUBE PRN (10:21)
[2017-11-02] MEDS ORDERED: LACTATED RINGERS 1,000 ML IV ONE (11:40)
[2017-11-02] MEDS: SODIUM BICARB INJ 150 MEQ in DEXTROSE 5% 850 ML IV SCH ×3 (11:48→23:52)
[2017-11-02] MEDS: MEROPENEM 500 MG in SYRINGE 1 EACH IV SCH (12:10)
[2017-11-02] MEDS: POTASSIUM CHLORIDE 20 MEQ/15 ML UDCUP PER TUBE PRN ×3 (14:57→19:03)
[2017-11-02] MEDS: NOREPINEPHRINE 8 MG in SODIUM CHLORIDE 0.9% 242 ML IV PRN (16:16)
[2017-11-03] MEDS: LINEZOLID INJ 600 MG in PREMIX 1 EACH IV SCH ×2 (04:16→16:48)
[2017-11-03 05:30] LABS: Basophils % 0.1 % (0.0-0.8); Hematocrit 20.5 VOL% (42.0-52.0); Hemoglobin 7.3 GM/DL (14.0-18.0); Immature Granulocytes % 1.3 %; Immature Granulocytes Absolute 0.09 #; Lymphocytes # 0.7 10*3/uL (1.4-4.0); Mean Corpuscular HGB Conc 35.6 GM/DL (32-36); Mean Corpuscular Hemoglobin 28 PG (27-34); Mean Corpuscular Volume 79.5 FL (87-102); Mean Platelet Volume 11.6 FL (9.6-12.0); Monocytes # 0.2 10*3/uL (0.11-0.8); Monocytes % 3.5 % (1.7-12.7); Neutrophils # 5.8 10*3/uL (1.4-7.4); Neutrophils % 85.1 % (38.7-73.9); Platelet Count 119 T/CUMM (130-400); Red Blood Count 2.58 MC/CUMM (3.8-5.5); Red Cell Distribution Width 14.8 % (9.3-17.3); White Blood Count 6.9 T/CUMM (4-12)
[2017-11-03 05:49] LABS: Calcium 6.5 MG/DL (8.5-10.1); Osmolality,Calculated 332.5 MOS/KG (273-304); Potassium 3.4 MMOL/L (3.5-5.1)
[2017-11-03 05:52] LABS: Albumin 1.2 G/DL (3.4-5.0); Bilirubin,Total 0.9 MG/DL (0.2-1.0); Calcium 6.4 MG/DL (8.5-10.1); Osmolality,Calculated 333.5 MOS/KG (273-304); Potassium 3.4 MMOL/L (3.5-5.1); Total Protein 4.7 G/DL (6.4-8.3)
[2017-11-03 06:12] LABS: Hypochromasia 1+
[2017-11-03 06:13] LABS: Microcytosis 1+; Target Cells Slight
[2017-11-03 06:14] LABS: Platelet Estimate Adequate
[2017-11-03] MEDS: INSULIN REGULAR 100 UNIT/ML SUBCUT SCH ×3 (06:19→19:20)
[2017-11-03] MEDS: LEVOTHYROXINE 50 MCG TABLET PO SCH (06:20)
[2017-11-03] MEDS: POTASSIUM CHLORIDE 20 MEQ/15 ML UDCUP PER TUBE PRN ×4 (06:20→21:16)
[2017-11-03] MEDS: SODIUM BICARB INJ 150 MEQ in DEXTROSE 5% 850 ML IV SCH ×2 (07:21→18:06)
[2017-11-03] MEDS: INSULIN NPH/REGULAR 70/30 100 UNIT/ML SUBCUT SCH (08:25)
[2017-11-03] MEDS: DICYCLOMINE 10 MG CAPSULE PO SCH ×4 (08:28→21:16)
[2017-11-03] MEDS: LANSOPRAZOLE ODT 30 MG TABLET NG SCH (08:28)
[2017-11-03] MEDS: ASPIRIN CHEW 81 MG TABLET PO SCH (08:29)
[2017-11-03] MEDS: METOCLOPRAMIDE 10 MG TABLET PO SCH (08:29)
[2017-11-03] MEDS: AMIODARONE 200 MG TABLET PO SCH ×2 (08:29→21:16)
[2017-11-03] MEDS: TAMSULOSIN 0.4 MG CAPSULE PO SCH ×2 (08:30→21:23)
[2017-11-03] MEDS: FINASTERIDE 5 MG TABLET PO SCH (08:30)
[2017-11-03] MEDS ORDERED: SODIUM CHLORIDE 0.9% 1,000 ML IV PRN (09:27)
[2017-11-03] MEDS: MEROPENEM 500 MG in SYRINGE 1 EACH IV SCH (12:05)
[2017-11-03] MEDS: INSULIN GLARGINE 100 UNIT/ML SUBCUT SCH (21:16)
[2017-11-04] MEDS: SODIUM BICARB INJ 150 MEQ in DEXTROSE 5% 850 ML IV SCH ×3 (01:07→14:50)
[2017-11-04] MEDS: INSULIN REGULAR 100 UNIT/ML SUBCUT SCH ×4 (01:07→19:06)
[2017-11-04] MEDS: LINEZOLID INJ 600 MG in PREMIX 1 EACH IV SCH ×2 (04:08→19:06)
[2017-11-04 04:29] LABS: Calcium 6.3 MG/DL (8.5-10.1); Osmolality,Calculated 320.7 MOS/KG (273-304); Potassium 3.9 MMOL/L (3.5-5.1)
[2017-11-04] MEDS: LEVOTHYROXINE 50 MCG TABLET PO SCH (06:16)
[2017-11-04] MEDS: LANSOPRAZOLE ODT 30 MG TABLET NG SCH (08:43)
[2017-11-04] MEDS: FINASTERIDE 5 MG TABLET PO SCH (08:43)
[2017-11-04] MEDS: AMIODARONE 200 MG TABLET PO SCH ×2 (08:43→20:30)
[2017-11-04] MEDS: METOCLOPRAMIDE 10 MG TABLET PO SCH (08:43)
[2017-11-04] MEDS: DICYCLOMINE 10 MG CAPSULE PO SCH ×2 (08:44→12:51)
[2017-11-04] MEDS: ASPIRIN CHEW 81 MG TABLET PO SCH (08:44)
[2017-11-04] MEDS: TAMSULOSIN 0.4 MG CAPSULE PO SCH ×2 (08:51→20:30)
[2017-11-04] MEDS: MEROPENEM 500 MG in SYRINGE 1 EACH IV SCH (12:50)
[2017-11-04 13:57] LABS: Basophils % 0.1 % (0.0-0.8); Hematocrit 26.7 VOL% (42.0-52.0); Hemoglobin 9.4 GM/DL (14.0-18.0); Immature Granulocytes % 1.6 %; Immature Granulocytes Absolute 0.14 #; Mean Corpuscular HGB Conc 35.2 GM/DL (32-36); Mean Corpuscular Hemoglobin 28 PG (27-34); Mean Corpuscular Volume 79.7 FL (87-102); Monocytes # 0.4 10*3/uL (0.11-0.8); Monocytes % 3.9 % (1.7-12.7); Neutrophils # 7.5 10*3/uL (1.4-7.4); Neutrophils % 83.4 % (38.7-73.9); Platelet Count 142 T/CUMM (130-400); Red Blood Count 3.35 MC/CUMM (3.8-5.5); Red Cell Distribution Width 15.5 % (9.3-17.3)
[2017-11-04] MEDS: SODIUM CHLORIDE 0.45% 1,000 ML IV SCH (15:00)
[2017-11-04 15:58] LABS: Band Neutrophils 1 % (0-10); Eosinophils 1 % (0-10); Lymphocytes 11 % (20-55); Segmented Neutrophils 86 % (50-85); Total Cells Counted 100
[2017-11-04 15:59] LABS: Platelet Estimate Adequate
[2017-11-04 18:05] LABS: Hematocrit 28.4 VOL% (42.0-52.0)
[2017-11-04] MEDS: PANTOPRAZOLE 40 MG VIAL IV SCH (20:29)
[2017-11-04] MEDS: INSULIN GLARGINE 100 UNIT/ML SUBCUT SCH (20:30)
[2017-11-04 23:27] LABS: Hemoglobin 9.7 GM/DL (14.0-18.0)
[2017-11-05] MEDS: INSULIN REGULAR 100 UNIT/ML SUBCUT SCH ×3 (00:15→20:47)
[2017-11-05] MEDS: SODIUM CHLORIDE 0.45% 1,000 ML IV SCH ×4 (01:23→23:50)
[2017-11-05] MEDS: LINEZOLID INJ 600 MG in PREMIX 1 EACH IV SCH ×2 (05:17→19:03)
[2017-11-05 05:30] LABS: Basophils % 0.2 % (0.0-0.8); Hematocrit 26.4 VOL% (42.0-52.0); Hemoglobin 9.5 GM/DL (14.0-18.0); Immature Granulocytes % 2.6 %; Immature Granulocytes Absolute 0.37 #; Lymphocytes # 1.8 10*3/uL (1.4-4.0); Lymphocytes % 12.5 % (21.2-54.2); Mean Corpuscular Hemoglobin 29 PG (27-34); Mean Corpuscular Volume 79.8 FL (87-102); Mean Platelet Volume 11.6 FL (9.6-12.0); Monocytes # 0.5 10*3/uL (0.11-0.8); Monocytes % 3.9 % (1.7-12.7); Neutrophils # 11.3 10*3/uL (1.4-7.4); Neutrophils % 80.8 % (38.7-73.9); Platelet Count 197 T/CUMM (130-400); Red Blood Count 3.31 MC/CUMM (3.8-5.5); Red Cell Distribution Width 15.7 % (9.3-17.3)
[2017-11-05 05:55] LABS: Hypochromasia 1+
[2017-11-05 05:56] LABS: Microcytosis 1+; Platelet Estimate Adequate; Prealbumin 7.8 MG/DL (20-40); Target Cells Slight
[2017-11-05] MEDS: LEVOTHYROXINE 50 MCG TABLET PO SCH (06:14)
[2017-11-05 08:43] LABS: Hematocrit 26.2 VOL% (42.0-52.0); Hemoglobin 9.3 GM/DL (14.0-18.0)
[2017-11-05] MEDS: TAMSULOSIN 0.4 MG CAPSULE PO SCH ×2 (09:49→20:48)
[2017-11-05] MEDS: FINASTERIDE 5 MG TABLET PO SCH (09:49)
[2017-11-05] MEDS: AMIODARONE 200 MG TABLET PO SCH ×2 (09:50→20:48)
[2017-11-05] MEDS: PANTOPRAZOLE 40 MG VIAL IV SCH ×2 (09:50→20:48)
[2017-11-05 11:31] LABS: Calcium 6.2 MG/DL (8.5-10.1); Osmolality,Calculated 297.4 MOS/KG (273-304); Potassium 3.9 MMOL/L (3.5-5.1)
[2017-11-05] MEDS: MEROPENEM 500 MG in SYRINGE 1 EACH IV SCH (11:48)
[2017-11-05 11:54] LABS: Hematocrit 26.2 VOL% (42.0-52.0); Hemoglobin 8.8 GM/DL (14.0-18.0)
[2017-11-05 20:06] LABS: Hematocrit 26.6 VOL% (42.0-52.0); Hemoglobin 8.8 GM/DL (14.0-18.0)
[2017-11-05] MEDS: INSULIN GLARGINE 100 UNIT/ML SUBCUT SCH (20:48)
[2017-11-06] MEDS: INSULIN REGULAR 100 UNIT/ML SUBCUT SCH ×4 (00:09→18:31)
[2017-11-06] MEDS: LINEZOLID INJ 600 MG in PREMIX 1 EACH IV SCH ×2 (04:01→18:24)
[2017-11-06 04:14] LABS: Basophils % 0.1 % (0.0-0.8); Hematocrit 26.7 VOL% (42.0-52.0); Hemoglobin 9.1 GM/DL (14.0-18.0); Immature Granulocytes % 1.9 %; Immature Granulocytes Absolute 0.25 #; Lymphocytes # 1.5 10*3/uL (1.4-4.0); Lymphocytes % 11.5 % (21.2-54.2); Mean Corpuscular HGB Conc 34.1 GM/DL (32-36); Mean Corpuscular Hemoglobin 28 PG (27-34); Mean Corpuscular Volume 82.7 FL (87-102); Mean Platelet Volume 11.3 FL (9.6-12.0); Monocytes # 0.5 10*3/uL (0.11-0.8); Monocytes % 3.6 % (1.7-12.7); Neutrophils # 11.1 10*3/uL (1.4-7.4); Neutrophils % 82.9 % (38.7-73.9); Platelet Count 213 T/CUMM (130-400); Red Blood Count 3.23 MC/CUMM (3.8-5.5); Red Cell Distribution Width 15.6 % (9.3-17.3); White Blood Count 13.4 T/CUMM (4-12)
[2017-11-06 04:36] LABS: Calcium 6.3 MG/DL (8.5-10.1); Osmolality,Calculated 293.5 MOS/KG (273-304); Potassium 4.2 MMOL/L (3.5-5.1)
[2017-11-06 05:15] LABS: Atypical Lymphocytes Few; Platelet Estimate Normal
[2017-11-06] MEDS: SODIUM CHLORIDE 0.45% 1,000 ML IV SCH ×2 (06:16→11:18)
[2017-11-06] MEDS: LEVOTHYROXINE 50 MCG TABLET PO SCH (06:27)
[2017-11-06] MEDS: AMIODARONE 200 MG TABLET PO SCH ×2 (09:45→20:33)
[2017-11-06] MEDS: FINASTERIDE 5 MG TABLET PO SCH (09:46)
[2017-11-06] MEDS: PANTOPRAZOLE 40 MG VIAL IV SCH ×2 (09:47→20:33)
[2017-11-06 09:56] LABS: Hematocrit 27.8 VOL% (42.0-52.0); Hemoglobin 9.2 GM/DL (14.0-18.0)
[2017-11-06] MEDS ORDERED: TUBERCULIN SKIN TEST 0.1 ML SYRINGE INTRADERM ONE (10:56)
[2017-11-06] MEDS: TAMSULOSIN 0.4 MG CAPSULE PO SCH ×2 (11:16→20:02)
[2017-11-06] MEDS: MEROPENEM 500 MG in SYRINGE 1 EACH IV SCH (13:15)
[2017-11-06] MEDS: SODIUM CHLORIDE 0.9% 1,000 ML IV SCH (13:18)
[2017-11-06] MEDS: INSULIN GLARGINE 100 UNIT/ML SUBCUT SCH (20:02)
[2017-11-06 20:47] LABS: Apearance,Urine CLEAR (Clear); Bilirubin,Urine Negative (Negative); Blood, Urine Negative (Negative); Glucose,Urine (UA) Negative (Negative); Ketones,Urine Negative (Negative); Nitrite,Urine Negative (Negative); Protein,Urine Negative; Urine Color Straw (Yellow); Urine Specific Gravity 1.005 (1.001-1.035)
[2017-11-06 20:48] LABS: Bacteria,Urine Occasional /HPF (Few); RBC,Urine 1 /HPF (0-4); Urine Urobilinogen < 2.0 EU/DL (0.2-1.0); WBC,Urine 10 /HPF (0-6)
[2017-11-07] MEDS: INSULIN REGULAR 100 UNIT/ML SUBCUT SCH ×4 (00:31→17:13)
[2017-11-07] MEDS: LINEZOLID INJ 600 MG in PREMIX 1 EACH IV SCH ×2 (03:57→16:54)
[2017-11-07] MEDS: SODIUM CHLORIDE 0.9% 1,000 ML IV SCH ×3 (03:57→19:46)
[2017-11-07 05:19] LABS: Basophils % 0.1 % (0.0-0.8); Hematocrit 25.1 VOL% (42.0-52.0); Hemoglobin 8.5 GM/DL (14.0-18.0); Immature Granulocytes % 1.5 %; Immature Granulocytes Absolute 0.16 #; Lymphocytes # 1.6 10*3/uL (1.4-4.0); Mean Corpuscular HGB Conc 33.9 GM/DL (32-36); Mean Corpuscular Hemoglobin 28 PG (27-34); Mean Platelet Volume 11.1 FL (9.6-12.0); Monocytes # 0.6 10*3/uL (0.11-0.8); Monocytes % 5.2 % (1.7-12.7); Neutrophils # 8.3 10*3/uL (1.4-7.4); Neutrophils % 78.2 % (38.7-73.9); Platelet Count 193 T/CUMM (130-400); Red Blood Count 3.06 MC/CUMM (3.8-5.5); Red Cell Distribution Width 15.5 % (9.3-17.3); White Blood Count 10.6 T/CUMM (4-12)
[2017-11-07 05:46] LABS: Calcium 6.4 MG/DL (8.5-10.1); Osmolality,Calculated 287.5 MOS/KG (273-304)
[2017-11-07 05:47] LABS: Hypochromasia 1+; Microcytosis Slight; Platelet Estimate Adequate
[2017-11-07] MEDS: LEVOTHYROXINE 50 MCG TABLET PO SCH (08:34)
[2017-11-07] MEDS: PANTOPRAZOLE 40 MG VIAL IV SCH ×2 (08:34→21:06)
[2017-11-07] MEDS: FINASTERIDE 5 MG TABLET PO SCH (08:35)
[2017-11-07] MEDS: traMADol 50 MG TABLET PO PRN (08:35)
[2017-11-07] MEDS: TAMSULOSIN 0.4 MG CAPSULE PO SCH ×2 (08:35→21:06)
[2017-11-07] MEDS: AMIODARONE 200 MG TABLET PO SCH ×2 (08:36→21:06)
[2017-11-07] MEDS ORDERED: POLYETHYLENE GLYCOL POWDER 17 GM PACK PO PRN (09:48)
[2017-11-07] MEDS: MEROPENEM 500 MG in SYRINGE 1 EACH IV SCH (11:34)
[2017-11-08] MEDS: INSULIN GLARGINE 100 UNIT/ML SUBCUT SCH ×2 (00:03→22:29)
[2017-11-08] MEDS: INSULIN REGULAR 100 UNIT/ML SUBCUT SCH ×4 (00:57→18:06)
[2017-11-08 05:31] LABS: Basophils % 0.1 % (0.0-0.8); Hematocrit 24.9 VOL% (42.0-52.0); Hemoglobin 8.5 GM/DL (14.0-18.0); Immature Granulocytes % 1.1 %; Immature Granulocytes Absolute 0.11 #; Lymphocytes # 1.4 10*3/uL (1.4-4.0); Lymphocytes % 13.7 % (21.2-54.2); Mean Corpuscular HGB Conc 34.1 GM/DL (32-36); Mean Corpuscular Hemoglobin 28 PG (27-34); Mean Corpuscular Volume 82.7 FL (87-102); Mean Platelet Volume 10.4 FL (9.6-12.0); Monocytes # 0.6 10*3/uL (0.11-0.8); Monocytes % 5.6 % (1.7-12.7); Neutrophils % 79.5 % (38.7-73.9); Platelet Count 175 T/CUMM (130-400); Red Blood Count 3.01 MC/CUMM (3.8-5.5); Red Cell Distribution Width 15.4 % (9.3-17.3); White Blood Count 10.1 T/CUMM (4-12)
[2017-11-08 05:54] LABS: Calcium 6.9 MG/DL (8.5-10.1); Osmolality,Calculated 284.2 MOS/KG (273-304); Potassium 4.3 MMOL/L (3.5-5.1)
[2017-11-08] MEDS: LEVOTHYROXINE 50 MCG TABLET PO SCH (06:05)
[2017-11-08] MEDS: LINEZOLID INJ 600 MG in PREMIX 1 EACH IV SCH (06:05)
[2017-11-08 06:13] LABS: Prealbumin 9.2 MG/DL (20-40)
[2017-11-08] MEDS: AMIODARONE 200 MG TABLET PO SCH ×2 (09:00→21:48)
[2017-11-08] MEDS: FINASTERIDE 5 MG TABLET PO SCH (09:00)
[2017-11-08] MEDS: TAMSULOSIN 0.4 MG CAPSULE PO SCH ×2 (09:00→21:47)
[2017-11-08] MEDS: PANTOPRAZOLE 40 MG VIAL IV SCH ×2 (09:01→21:48)
[2017-11-08] MEDS ORDERED: MAGNESIUM SULF RIDER 2 GM in PREMIX 1 EACH IV ONE (10:14)
[2017-11-08] MEDS: AMOXICILLIN/CLAV 875 MG TABLET PO SCH ×2 (10:36→21:47)
[2017-11-08] MEDS: MEROPENEM 500 MG in SYRINGE 1 EACH IV SCH (12:05)
[2017-11-08] MEDS: SODIUM CHLORIDE 0.9% 1,000 ML IV SCH (13:37)
[2017-11-08] MEDS: traMADol 50 MG TABLET PO PRN (21:48)
[2017-11-09] MEDS: INSULIN REGULAR 100 UNIT/ML SUBCUT SCH ×4 (00:48→17:55)
[2017-11-09] MEDS: LEVOTHYROXINE 50 MCG TABLET PO SCH (06:19)
[2017-11-09] MEDS: SODIUM CHLORIDE 0.9% 1,000 ML IV SCH ×2 (06:19→08:19)
[2017-11-09 08:58] LABS: Calcium 7.9 MG/DL (8.5-10.1); Osmolality,Calculated 284.8 MOS/KG (273-304); Potassium 4.1 MMOL/L (3.5-5.1)
[2017-11-09] MEDS: AMIODARONE 200 MG TABLET PO SCH (08:59)
[2017-11-09] MEDS: amLODIPine 10 MG TABLET PO SCH (08:59)
[2017-11-09] MEDS: TAMSULOSIN 0.4 MG CAPSULE PO SCH ×2 (09:00→21:40)
[2017-11-09] MEDS: FINASTERIDE 5 MG TABLET PO SCH (09:00)
[2017-11-09] MEDS: PANTOPRAZOLE 40 MG VIAL IV SCH ×2 (09:00→21:39)
[2017-11-09] MEDS: AMOXICILLIN/CLAV 875 MG TABLET PO SCH ×2 (11:11→21:42)
[2017-11-09] MEDS: MEROPENEM 500 MG in SYRINGE 1 EACH IV SCH (15:11)
[2017-11-10] MEDS: INSULIN REGULAR 100 UNIT/ML SUBCUT SCH ×4 (00:21→20:36)
[2017-11-10] MEDS: SODIUM CHLORIDE 0.9% 1,000 ML IV SCH ×2 (02:53→20:36)
[2017-11-10] MEDS: LEVOTHYROXINE 50 MCG TABLET PO SCH (06:21)
[2017-11-10] MEDS: TAMSULOSIN 0.4 MG CAPSULE PO SCH ×2 (10:12→22:10)
[2017-11-10] MEDS: AMIODARONE 200 MG TABLET PO SCH (10:12)
[2017-11-10] MEDS: amLODIPine 10 MG TABLET PO SCH (10:12)
[2017-11-10] MEDS: PANTOPRAZOLE 40 MG VIAL IV SCH ×2 (10:12→22:10)
[2017-11-10] MEDS: FINASTERIDE 5 MG TABLET PO SCH (10:12)
[2017-11-10] MEDS: AMOXICILLIN/CLAV 875 MG TABLET PO SCH (16:25)
[2017-11-10 18:32] LABS: Basophils % 0.1 % (0.0-0.8); Hematocrit 22.1 VOL% (42.0-52.0); Hemoglobin 7.6 GM/DL (14.0-18.0); Immature Granulocytes % 0.6 %; Immature Granulocytes Absolute 0.05 #; Lymphocytes # 1.6 10*3/uL (1.4-4.0); Lymphocytes % 17.8 % (21.2-54.2); Mean Corpuscular HGB Conc 34.4 GM/DL (32-36); Mean Corpuscular Hemoglobin 29 PG (27-34); Mean Corpuscular Volume 83.1 FL (87-102); Mean Platelet Volume 9.3 FL (9.6-12.0); Monocytes # 0.7 10*3/uL (0.11-0.8); Monocytes % 7.3 % (1.7-12.7); Neutrophils # 6.6 10*3/uL (1.4-7.4); Neutrophils % 74.2 % (38.7-73.9); Platelet Count 157 T/CUMM (130-400); Red Blood Count 2.66 MC/CUMM (3.8-5.5); Red Cell Distribution Width 15.3 % (9.3-17.3); White Blood Count 8.9 T/CUMM (4-12)
[2017-11-10 19:00] LABS: Calcium 7.3 MG/DL (8.5-10.1); Osmolality,Calculated 284.1 MOS/KG (273-304); Potassium 4.8 MMOL/L (3.5-5.1)
[2017-11-11] MEDS: AMOXICILLIN/CLAV 875 MG TABLET PO SCH ×3 (00:25→22:50)
[2017-11-11] MEDS: INSULIN REGULAR 100 UNIT/ML SUBCUT SCH ×4 (00:25→17:48)
[2017-11-11] MEDS: LEVOTHYROXINE 50 MCG TABLET PO SCH (06:35)
[2017-11-11 06:39] LABS: Basophils % 0.2 % (0.0-0.8); Hematocrit 21.1 VOL% (42.0-52.0); Immature Granulocytes % 0.6 %; Immature Granulocytes Absolute 0.05 #; Lymphocytes # 1.6 10*3/uL (1.4-4.0); Lymphocytes % 17.3 % (21.2-54.2); Mean Corpuscular HGB Conc 33.2 GM/DL (32-36); Mean Corpuscular Hemoglobin 29 PG (27-34); Mean Corpuscular Volume 85.8 FL (87-102); Mean Platelet Volume 9.6 FL (9.6-12.0); Monocytes # 0.8 10*3/uL (0.11-0.8); Monocytes % 8.5 % (1.7-12.7); Neutrophils # 6.6 10*3/uL (1.4-7.4); Neutrophils % 73.4 % (38.7-73.9); Platelet Count 140 T/CUMM (130-400); Red Blood Count 2.46 MC/CUMM (3.8-5.5); Red Cell Distribution Width 15.1 % (9.3-17.3)
[2017-11-11 06:56] LABS: Calcium 7.6 MG/DL (8.5-10.1); Osmolality,Calculated 283.8 MOS/KG (273-304); Potassium 4.7 MMOL/L (3.5-5.1)
[2017-11-11] MEDS: PANTOPRAZOLE 40 MG VIAL IV SCH ×2 (09:53→21:55)
[2017-11-11] MEDS: amLODIPine 10 MG TABLET PO SCH (09:54)
[2017-11-11] MEDS: AMIODARONE 200 MG TABLET PO SCH (09:54)
[2017-11-11] MEDS: TAMSULOSIN 0.4 MG CAPSULE PO SCH ×2 (09:59→21:55)
[2017-11-11] MEDS: FINASTERIDE 5 MG TABLET PO SCH (09:59)
[2017-11-11] MEDS: SODIUM CHLORIDE 0.9% 1,000 ML IV SCH (15:29)
[2017-11-11] MEDS ORDERED: SODIUM CHLORIDE 0.9% 1,000 ML IV PRN (20:51)
[2017-11-11] MEDS ORDERED: MAGNESIUM SULF RIDER 4 GM in PREMIX 1 EACH IV PRN (20:51)
[2017-11-11] MEDS ORDERED: MAGNESIUM SULF RIDER 2 GM in PREMIX 1 EACH IV PRN (20:51)
[2017-11-12] MEDS: INSULIN REGULAR 100 UNIT/ML SUBCUT SCH ×4 (01:00→17:55)
[2017-11-12 05:41] LABS: Basophils % 0.3 % (0.0-0.8); Hemoglobin 9.8 GM/DL (14.0-18.0); Immature Granulocytes % 0.4 %; Immature Granulocytes Absolute 0.05 #; Lymphocytes # 1.7 10*3/uL (1.4-4.0); Lymphocytes % 14.9 % (21.2-54.2); Mean Corpuscular Hemoglobin 29 PG (27-34); Mean Corpuscular Volume 82.8 FL (87-102); Mean Platelet Volume 9.6 FL (9.6-12.0); Monocytes % 8.5 % (1.7-12.7); Neutrophils # 8.6 10*3/uL (1.4-7.4); Neutrophils % 75.9 % (38.7-73.9); Platelet Count 139 T/CUMM (130-400); Red Blood Count 3.38 MC/CUMM (3.8-5.5); Red Cell Distribution Width 14.6 % (9.3-17.3); White Blood Count 11.4 T/CUMM (4-12)
[2017-11-12 06:11] LABS: Calcium 7.7 MG/DL (8.5-10.1); Osmolality,Calculated 279.8 MOS/KG (273-304); Potassium 4.4 MMOL/L (3.5-5.1)
[2017-11-12] MEDS: PANTOPRAZOLE 40 MG VIAL IV SCH ×2 (10:44→21:28)
[2017-11-12] MEDS: amLODIPine 10 MG TABLET PO SCH (10:44)
[2017-11-12] MEDS: LEVOTHYROXINE 50 MCG TABLET PO SCH (10:45)
[2017-11-12] MEDS: FINASTERIDE 5 MG TABLET PO SCH (10:45)
[2017-11-12] MEDS: AMIODARONE 200 MG TABLET PO SCH (10:45)
[2017-11-12] MEDS: TAMSULOSIN 0.4 MG CAPSULE PO SCH ×2 (10:45→21:28)
[2017-11-12] MEDS: AMOXICILLIN/CLAV 875 MG TABLET PO SCH ×2 (10:50→22:40)
[2017-11-12] MEDS: SODIUM CHLORIDE 0.9% 1,000 ML IV SCH (14:39)
[2017-11-13] MEDS: INSULIN REGULAR 100 UNIT/ML SUBCUT SCH ×4 (00:12→18:09)
[2017-11-13 06:10] LABS: Prealbumin 10.8 MG/DL (20-40)
[2017-11-13] MEDS: LEVOTHYROXINE 50 MCG TABLET PO SCH (07:07)
[2017-11-13] MEDS ORDERED: glyBURIDE 2.5 MG TABLET PO SCH (08:00)
[2017-11-13] MEDS: SODIUM CHLORIDE 0.9% 1,000 ML IV SCH (09:13)
[2017-11-13] MEDS: PANTOPRAZOLE 40 MG VIAL IV SCH (09:18)
[2017-11-13] MEDS: AMOXICILLIN/CLAV 875 MG TABLET PO SCH ×2 (09:20→12:01)
[2017-11-13] MEDS: AMIODARONE 200 MG TABLET PO SCH (09:20)
[2017-11-13] MEDS: amLODIPine 10 MG TABLET PO SCH (09:20)
[2017-11-13] MEDS: TAMSULOSIN 0.4 MG CAPSULE PO SCH (09:20)
[2017-11-13] MEDS: FINASTERIDE 5 MG TABLET PO SCH (09:20)
[2017-11-13 18:14] VITALS: BP 150/70
== END 2017-11-13 18:25 | disposition swing bed (61) | DRG 682 ==
LOC: EDBD → EDUNIT# → N.ED 13:10 → N.EDINP 15:48 → SUATTDRO 15:48 → N.TELES 18:37 → N.CC 10-31 23:32 → N.5E 11-09 18:29
PROVIDERS: ADMIT Internal Medicine Infectious Disease; ATTEND Internal Medicine

== ENCOUNTER 2017-11-20 09:14 | Inpatient (IN) ==
[~2017-11-20 09:14] MED LIST: POLYETHYLENE GLYCOL POWDER 17 GM PACK PO PRN
[2017-11-20] MEDS ORDERED: DEXTROSE 50% 25 GM/50 ML SYRINGE IV STA (09:34)
[2017-11-20 10:49] LABS: Hematocrit 26.3 VOL% (42.0-52.0); Hemoglobin 8.5 GM/DL (14.0-18.0); Immature Granulocytes % 0.8 %; Immature Granulocytes Absolute 0.02 #; Lymphocytes # 0.2 10*3/uL (1.4-4.0); Mean Corpuscular HGB Conc 32.3 GM/DL (32-36); Mean Corpuscular Hemoglobin 28 PG (27-34); Mean Corpuscular Volume 85.7 FL (87-102); Mean Platelet Volume 11.1 FL (9.6-12.0); Monocytes # 0.4 10*3/uL (0.11-0.8); Monocytes % 14.1 % (1.7-12.7); Neutrophils % 78.1 % (38.7-73.9); Red Blood Count 3.07 MC/CUMM (3.8-5.5); Red Cell Distribution Width 15.5 % (9.3-17.3); White Blood Count 2.6 T/CUMM (4-12)
[2017-11-20 10:53] LABS: Platelet Count 95 T/CUMM (130-400)
[2017-11-20 10:56] LABS: INR 1.5; PT Patient Result 15.4 SECS; Partial Thromboplastin Time 35.3 SECS (0-40)
[2017-11-20 11:10] LABS: Alanine Aminotransferase 33 U/L (16-61); Albumin 1.8 G/DL (3.4-5.0); Alkaline Phosphatase 224 U/L (45-117); Aspartate Amino Transferase 82 U/L (0-37); Blood Urea Nitrogen 46 MG/DL (7-18); Calcium 7.3 MG/DL (8.5-10.1); Glucose 189 MG/DL (74-106); Osmolality,Calculated 291.7 MOS/KG (273-304); Potassium 3.4 MMOL/L (3.5-5.1); Sodium 138 MMOL/L (136-145); Troponin I Only < 0.015 NG/ML (0.00-0.045)
[2017-11-20 11:12] LABS: Band Neutrophils 7 % (0-10); Burr Cells Slight; Hypochromasia 1+; Lymphocytes 7 % (20-55); Ovalocytes Slight; Platelet Estimate Decreased; Segmented Neutrophils 74 % (50-85); Total Cells Counted 100
[2017-11-20] MEDS ORDERED: POTASSIUM CHLORIDE 20 MEQ TABLET PO ONE (11:26)
[2017-11-20] MEDS ORDERED: LACTULOSE 20 GM/30 ML UDCUP PO PRN (11:51)
[2017-11-20] MEDS ORDERED: GLUCAGON 1 MG VIAL IM PRN (11:51)
[2017-11-20] MEDS ORDERED: MECLIZINE 25 MG TABLET PO PRN (11:55)
[2017-11-20] MEDS ORDERED: traZODone 50 MG TABLET PO PRN (11:55)
[2017-11-20] MEDS ORDERED: ONDANSETRON 4 MG TABLET PO PRN (11:55)
[2017-11-20] MEDS ORDERED: NITROGLYCERIN SL 0.4 MG TABLET SL PRN (11:55)
[2017-11-20] MEDS ORDERED: LACTULOSE 20 GM/30 ML UDCUP PO STA (11:55)
[2017-11-20] MEDS ORDERED: BISACODYL 10 MG SUPP RECTAL PRN (11:55)
[2017-11-20] MEDS: DEXTROSE 5% NACL 0.9% 1,000 ML IV SCH (12:00)
[2017-11-20] MEDS ORDERED: DICYCLOMINE 10 MG CAPSULE PO SCH (16:30)
[2017-11-20 17:37] LABS: Folate 15.4 NG/ML (5.4-24.0)
[2017-11-20 17:43] LABS: % Iron Saturation 3.8 % (18-50)
[2017-11-20 18:07] LABS: Ammonia < 10 UMOL/L (11-32)
[2017-11-20] MEDS: busPIRone 5 MG TABLET PO SCH ×2 (18:21→21:16)
[2017-11-20] MEDS: PHYTONADIONE 5 MG/5 ML ORAL.SYR PO SCH ×2 (18:23→23:40)
[2017-11-20] MEDS: AMIODARONE 200 MG TABLET PO SCH (18:31)
[2017-11-20] MEDS ORDERED: FAMOTIDINE 20 MG TABLET PO SCH (21:00)
[2017-11-20] MEDS: TAMSULOSIN 0.4 MG CAPSULE PO SCH (21:15)
[2017-11-20] MEDS: ATORVASTATIN 20 MG TABLET PO SCH (21:16)
[2017-11-20] MEDS: DEXTROSE 50% 25 GM/50 ML VIAL IV PRN (22:15)
[2017-11-21] MEDS: DEXTROSE 5% NACL 0.9% 1,000 ML IV SCH ×2 (03:16→13:53)
[2017-11-21] MEDS ORDERED: ACETAMINOPHEN 500 MG TABLET PO ONE (04:44)
[2017-11-21] MEDS ORDERED: CEFEPIME 1,000 MG in SYRINGE 1 EACH IV SCH (05:00)
[2017-11-21 05:44] LABS: Basophils % 0.4 % (0.0-0.8); Hematocrit 24.4 VOL% (42.0-52.0); Hemoglobin 8.4 GM/DL (14.0-18.0); Immature Granulocytes % 0.4 %; Immature Granulocytes Absolute 0.01 #; Lymphocytes # 0.3 10*3/uL (1.4-4.0); Lymphocytes % 13.3 % (21.2-54.2); Mean Corpuscular HGB Conc 34.4 GM/DL (32-36); Mean Corpuscular Hemoglobin 28 PG (27-34); Mean Corpuscular Volume 82.4 FL (87-102); Mean Platelet Volume 11.6 FL (9.6-12.0); Monocytes # 0.3 10*3/uL (0.11-0.8); Monocytes % 13.7 % (1.7-12.7); Neutrophils # 1.6 10*3/uL (1.4-7.4); Neutrophils % 72.2 % (38.7-73.9); Platelet Count 124 T/CUMM (130-400); Red Blood Count 2.96 MC/CUMM (3.8-5.5); Red Cell Distribution Width 15.8 % (9.3-17.3); White Blood Count 2.3 T/CUMM (4-12)
[2017-11-21 05:57] LABS: Immunoglobulin A (Chem) 222 MG/DL (70-400); Immunoglobulin G (Chem) 1240 MG/DL (700-1600); Immunoglobulin M (Chem) 45 MG/DL (40-230)
[2017-11-21 06:02] LABS: Albumin 1.5 G/DL (3.4-5.0); Total Protein 5.7 G/DL (6.4-8.3)
[2017-11-21 06:03] LABS: Osmolality,Calculated 285.7 MOS/KG (273-304); Potassium 3.3 MMOL/L (3.5-5.1)
[2017-11-21 06:14] LABS: Band Neutrophils 2 % (0-10); Lymphocytes 6 % (20-55); Segmented Neutrophils 85 % (50-85); Total Cells Counted 100
[2017-11-21 06:15] LABS: Burr Cells Few; Platelet Estimate Adequate; Target Cells Slight
[2017-11-21 06:16] LABS: Hypochromasia Slight; Ovalocytes Slight; Tear Drop Cells Slight
[2017-11-21 06:28] LABS: Apearance,Urine CLOUDY (Clear); Bacteria,Urine Moderate /HPF (Few); Bilirubin,Urine Negative (Negative); Blood, Urine Small mg/dL (Negative); Glucose,Urine (UA) Negative (Negative); Ketones,Urine Negative (Negative); Nitrite,Urine Negative (Negative); Protein,Urine 100 MG/DL; RBC,Urine 1 /HPF (0-4); Urine Color Amber (Yellow); Urine Specific Gravity 1.014 (1.001-1.035); Urine Urobilinogen < 2.0 EU/DL (0.2-1.0); WBC,Urine 9 /HPF (0-6)
[2017-11-21 07:48] LABS: Immuno Free Light Chain Kappa 11.46 MG/DL (0.33-1.94); Immuno Free Light Chain Lambda 7.25 MG/DL (0.57-2.63); Immuno Free Light Chain Ratio 1.58 MG/DL (0.26-1.65)
[2017-11-21] MEDS ORDERED: POTASSIUM CHLORIDE 20 MEQ TABLET PO ONE (08:57)
[2017-11-21] MEDS: ASPIRIN EC 81 MG TABLET PO SCH (09:17)
[2017-11-21] MEDS: PANTOPRAZOLE 40 MG TABLET PO SCH (09:17)
[2017-11-21] MEDS: AMIODARONE 200 MG TABLET PO SCH (09:17)
[2017-11-21] MEDS: busPIRone 5 MG TABLET PO SCH (09:17)
[2017-11-21] MEDS: TAMSULOSIN 0.4 MG CAPSULE PO SCH ×2 (09:17→20:16)
[2017-11-21] MEDS: PHYTONADIONE 5 MG/5 ML ORAL.SYR PO SCH (09:17)
[2017-11-21] MEDS: LEVOTHYROXINE 100 MCG TABLET PO SCH (09:17)
[2017-11-21 09:24] LABS: Albumin (SPE) 2.3 G/DL (3.2-5.3); Albumin (SPE) Rel % 37.7 %; Alpha 1 (SPE) 0.7 G/DL (0.1-0.4); Alpha 1 (SPE) Rel % 11.4 %; Alpha 2 (SPE) Rel % 17.6 %
[2017-11-21 09:25] LABS: Beta (SPE) 0.8 G/DL (0.5-1.1); Beta (SPE) Rel % 13.1 %; Gamma (SPE) 1.2 G/DL (0.7-1.7); Gamma (SPE) Rel % 20.2 %
[2017-11-21] MEDS: CHLORHEXIDINE 4% SOLN 118 ML BOTTLE TOP SCH (10:31)
[2017-11-21] MEDS: FINASTERIDE 5 MG TABLET PO SCH (10:32)
[2017-11-21] MEDS ORDERED: SODIUM CHLORIDE 0.9% 1,600 ML IV ONE (10:41)
[2017-11-21] MEDS ORDERED: SODIUM CHLORIDE 0.9% 1,000 ML IV SCH (11:00)
[2017-11-21 11:06] LABS: ABG Base Excess -8.3 MMOL/L (-2.5-2.5); ABG HCO3 14.3 MMOL/L (20-26); ABG Oxygen Saturation 98.3 % (95-100); ABG PH 7.458 (7.35-7.45); ABG PO2 125.2 MM HG (80-95)
[2017-11-21 11:07] LABS: ABG PCO2 20.7 MM HG (35-48)
[2017-11-21 11:58] LABS: Lactic Acid 3.5 MMOL/L (0.4-2.0)
[2017-11-21] MEDS ORDERED: VANCOMYCIN INJ 750 MG in SODIUM CHLORIDE 0.9% 250 ML IV PRN (12:30)
[2017-11-21] MEDS ORDERED: VANCOMYCIN INJ 750 MG in SODIUM CHLORIDE 0.9% 250 ML IV ONE (13:00)
[2017-11-21] MEDS: MEROPENEM 500 MG in SYRINGE 1 EACH IV SCH ×2 (13:01→13:02)
[2017-11-21] MEDS: MEROPENEM 1,000 MG in SYRINGE 1 EACH IV SCH (13:23)
[2017-11-21] MEDS: ACETAMINOPHEN 325 MG TABLET PO PRN (13:54)
[2017-11-21] MEDS: SKIN HEALING OINT (AQUAPHOR) 50 GM TUBE TOP SCH (15:23)
[2017-11-21 16:00] LABS: Lactic Acid 2.6 MMOL/L (0.4-2.0)
[2017-11-21 16:38] LABS: Calcium 6.8 MG/DL (8.5-10.1); Osmolality,Calculated 285.5 MOS/KG (273-304); Potassium 3.5 MMOL/L (3.5-5.1)
[2017-11-21] MEDS: DEXTROSE 50% 25 GM/50 ML VIAL IV PRN (17:30)
[2017-11-21] MEDS: SODIUM BICARB INJ 50 MEQ in DEXTROSE 5% NACL 0.45% 1,000 ML IV SCH (19:01)
[2017-11-21] MEDS: ATORVASTATIN 20 MG TABLET PO SCH (20:16)
[2017-11-22] MEDS: MEROPENEM 1,000 MG in SYRINGE 1 EACH IV SCH ×2 (01:49→14:22)
[2017-11-22] MEDS: SODIUM BICARB INJ 50 MEQ in DEXTROSE 5% NACL 0.45% 1,000 ML IV SCH ×2 (04:47→22:23)
[2017-11-22 06:04] LABS: Albumin 1.3 G/DL (3.4-5.0); Bilirubin,Total 0.5 MG/DL (0.2-1.0); Calcium 6.9 MG/DL (8.5-10.1); Osmolality,Calculated 292.5 MOS/KG (273-304); Potassium 3.6 MMOL/L (3.5-5.1); Total Protein 5.2 G/DL (6.4-8.3)
[2017-11-22 06:53] LABS: HIV Antigen/Antibody Result Nonreactive (Nonreactive)
[2017-11-22 07:46] LABS: ABG HCO3 19.5 MMOL/L (20-26); ABG Oxygen Saturation 99.1 % (95-100); ABG PCO2 26.7 MM HG (35-48); ABG PH 7.423 (7.35-7.45); ABG TCO2 16.2 MMOL/L (23-27); Allen Test Positive
[2017-11-22 08:09] LABS: Eosinophils % 0.3 % (0.00-10.9); Hemoglobin 7.6 GM/DL (14.0-18.0); Immature Granulocytes % 0.8 %; Immature Granulocytes Absolute 0.03 #; Lymphocytes # 0.5 10*3/uL (1.4-4.0); Mean Corpuscular HGB Conc 31.7 GM/DL (32-36); Mean Corpuscular Hemoglobin 27 PG (27-34); Mean Corpuscular Volume 85.4 FL (87-102); Mean Platelet Volume 11.2 FL (9.6-12.0); Monocytes # 0.4 10*3/uL (0.11-0.8); Monocytes % 10.6 % (1.7-12.7); Neutrophils # 2.8 10*3/uL (1.4-7.4); Neutrophils % 75.3 % (38.7-73.9); Platelet Count 138 T/CUMM (130-400); Red Blood Count 2.81 MC/CUMM (3.8-5.5); Red Cell Distribution Width 16.1 % (9.3-17.3); White Blood Count 3.8 T/CUMM (4-12)
[2017-11-22] MEDS: ASPIRIN EC 81 MG TABLET PO SCH (08:31)
[2017-11-22] MEDS: TAMSULOSIN 0.4 MG CAPSULE PO SCH ×2 (08:31→22:21)
[2017-11-22] MEDS: AMIODARONE 200 MG TABLET PO SCH (08:31)
[2017-11-22] MEDS: PHYTONADIONE 5 MG/5 ML ORAL.SYR PO SCH (08:32)
[2017-11-22] MEDS: PANTOPRAZOLE 40 MG TABLET PO SCH (08:32)
[2017-11-22] MEDS: FINASTERIDE 5 MG TABLET PO SCH (08:32)
[2017-11-22] MEDS: LEVOTHYROXINE 100 MCG TABLET PO SCH (08:32)
[2017-11-22] MEDS ORDERED: SODIUM CHLORIDE 0.9% 1,000 ML IV PRN ×2 (09:04→09:26)
[2017-11-22 09:14] LABS: Band Neutrophils 4 % (0-10); Lymphocytes 10 % (20-55); Segmented Neutrophils 82 % (50-85); Total Cells Counted 100
[2017-11-22 09:15] LABS: Burr Cells Few; Hypochromasia Slight
[2017-11-22 09:16] LABS: Platelet Estimate Normal; Poikilocytosis Slight
[2017-11-22] MEDS: ACETAMINOPHEN 325 MG TABLET PO PRN (10:16)
[2017-11-22] MEDS: CHLORHEXIDINE 4% SOLN 118 ML BOTTLE TOP SCH (10:33)
[2017-11-22] MEDS: SKIN HEALING OINT (AQUAPHOR) 50 GM TUBE TOP SCH (10:33)
[2017-11-22 19:18] LABS: Hematocrit 30.1 VOL% (42.0-52.0); Hemoglobin 10.4 GM/DL (14.0-18.0)
[2017-11-22 19:35] LABS: Calcium 7.3 MG/DL (8.5-10.1); Osmolality,Calculated 292.4 MOS/KG (273-304); Potassium 3.7 MMOL/L (3.5-5.1)
[2017-11-22] MEDS: ATORVASTATIN 20 MG TABLET PO SCH (22:20)
[2017-11-23] MEDS: MEROPENEM 1,000 MG in SYRINGE 1 EACH IV SCH ×2 (02:47→15:45)
[2017-11-23 05:35] LABS: Basophils % 0.3 % (0.0-0.8); Hematocrit 33.1 VOL% (42.0-52.0); Hemoglobin 11.3 GM/DL (14.0-18.0); Immature Granulocytes % 1.5 %; Immature Granulocytes Absolute 0.09 #; Lymphocytes # 0.9 10*3/uL (1.4-4.0); Lymphocytes % 15.8 % (21.2-54.2); Mean Corpuscular HGB Conc 34.1 GM/DL (32-36); Mean Corpuscular Hemoglobin 29 PG (27-34); Mean Corpuscular Volume 83.8 FL (87-102); Mean Platelet Volume 11.4 FL (9.6-12.0); Monocytes # 0.7 10*3/uL (0.11-0.8); Monocytes % 12.2 % (1.7-12.7); Neutrophils # 4.1 10*3/uL (1.4-7.4); Neutrophils % 70.2 % (38.7-73.9); Platelet Count 183 T/CUMM (130-400); Red Blood Count 3.95 MC/CUMM (3.8-5.5); Red Cell Distribution Width 15.7 % (9.3-17.3); White Blood Count 5.9 T/CUMM (4-12)
[2017-11-23 06:14] LABS: Band Neutrophils 18 % (0-10); Lymphocytes 7 % (20-55); Nucleated Red Blood Cells 1 (0-5); Segmented Neutrophils 67 % (50-85); Total Cells Counted 100
[2017-11-23 06:15] LABS: Acanthocytes 1+; Anisocytosis 1+; Poikilocytosis 1+
[2017-11-23 06:25] LABS: Albumin 1.6 G/DL (3.4-5.0); Bilirubin,Total 1.3 MG/DL (0.2-1.0); Calcium 7.8 MG/DL (8.5-10.1); Osmolality,Calculated 289.7 MOS/KG (273-304); Potassium 3.9 MMOL/L (3.5-5.1)
[2017-11-23] MEDS: LEVOTHYROXINE 100 MCG TABLET PO SCH (08:29)
[2017-11-23] MEDS: FINASTERIDE 5 MG TABLET PO SCH (08:29)
[2017-11-23] MEDS: PANTOPRAZOLE 40 MG TABLET PO SCH (08:29)
[2017-11-23] MEDS: AMIODARONE 200 MG TABLET PO SCH (08:30)
[2017-11-23] MEDS: SODIUM BICARB INJ 50 MEQ in DEXTROSE 5% NACL 0.45% 1,000 ML IV SCH ×2 (08:30→17:27)
[2017-11-23] MEDS: TAMSULOSIN 0.4 MG CAPSULE PO SCH ×2 (08:30→20:58)
[2017-11-23] MEDS: ASPIRIN EC 81 MG TABLET PO SCH (08:30)
[2017-11-23] MEDS: PHYTONADIONE 5 MG/5 ML ORAL.SYR PO SCH (08:30)
[2017-11-23] MEDS: SKIN HEALING OINT (AQUAPHOR) 50 GM TUBE TOP SCH (10:04)
[2017-11-23] MEDS: CHLORHEXIDINE 4% SOLN 118 ML BOTTLE TOP SCH (10:04)
[2017-11-23] MEDS ORDERED: FUROSEMIDE 40 MG/4 ML VIAL IV ONE (12:48)
[2017-11-23] MEDS: SODIUM BICARBONATE 650 MG TABLET PO SCH (20:57)
[2017-11-23] MEDS: ATORVASTATIN 20 MG TABLET PO SCH (20:58)
[2017-11-24] MEDS: MEROPENEM 1,000 MG in SYRINGE 1 EACH IV SCH ×2 (02:07→13:48)
[2017-11-24] MEDS: SODIUM BICARB INJ 50 MEQ in DEXTROSE 5% NACL 0.45% 1,000 ML IV SCH ×2 (03:57→15:40)
[2017-11-24 05:32] LABS: Basophils % 0.3 % (0.0-0.8); Hematocrit 31.4 VOL% (42.0-52.0); Hemoglobin 10.8 GM/DL (14.0-18.0); Immature Granulocytes % 2.5 %; Immature Granulocytes Absolute 0.15 #; Lymphocytes % 15.8 % (21.2-54.2); Mean Corpuscular HGB Conc 34.4 GM/DL (32-36); Mean Corpuscular Hemoglobin 29 PG (27-34); Mean Platelet Volume 10.7 FL (9.6-12.0); Monocytes # 0.7 10*3/uL (0.11-0.8); Monocytes % 11.8 % (1.7-12.7); Neutrophils # 4.3 10*3/uL (1.4-7.4); Neutrophils % 69.6 % (38.7-73.9); Platelet Count 195 T/CUMM (130-400); Red Blood Count 3.74 MC/CUMM (3.8-5.5); Red Cell Distribution Width 15.8 % (9.3-17.3); White Blood Count 6.1 T/CUMM (4-12)
[2017-11-24 06:03] LABS: Albumin 1.3 G/DL (3.4-5.0); Bilirubin,Total 0.8 MG/DL (0.2-1.0); Calcium 7.3 MG/DL (8.5-10.1); Potassium 3.8 MMOL/L (3.5-5.1); Total Protein 5.4 G/DL (6.4-8.3)
[2017-11-24 06:38] LABS: Band Neutrophils 2 % (0-10); Lymphocytes 13 % (20-55); Nucleated Red Blood Cells 1 (0-5); Segmented Neutrophils 84 % (50-85); Total Cells Counted 100
[2017-11-24 06:39] LABS: Hypochromasia 1+; Microcytosis 1+
[2017-11-24 06:40] LABS: Platelet Estimate Adequate
[2017-11-24] MEDS: SODIUM BICARBONATE 650 MG TABLET PO SCH ×2 (09:13→20:24)
[2017-11-24] MEDS: ASPIRIN EC 81 MG TABLET PO SCH (09:13)
[2017-11-24] MEDS: PHYTONADIONE 5 MG/5 ML ORAL.SYR PO SCH (09:13)
[2017-11-24] MEDS: LEVOTHYROXINE 100 MCG TABLET PO SCH (09:13)
[2017-11-24] MEDS: AMIODARONE 200 MG TABLET PO SCH (09:13)
[2017-11-24] MEDS: TAMSULOSIN 0.4 MG CAPSULE PO SCH ×2 (09:14→20:24)
[2017-11-24] MEDS: FINASTERIDE 5 MG TABLET PO SCH (09:14)
[2017-11-24] MEDS: PANTOPRAZOLE 40 MG TABLET PO SCH (09:14)
[2017-11-24] MEDS: CHLORHEXIDINE 4% SOLN 118 ML BOTTLE TOP SCH (10:30)
[2017-11-24] MEDS: SKIN HEALING OINT (AQUAPHOR) 50 GM TUBE TOP SCH (10:30)
[2017-11-24] MEDS ORDERED: GLUCAGON 1 MG VIAL IM PRN (12:52)
[2017-11-24] MEDS ORDERED: DEXTROSE 50% 25 GM/50 ML VIAL IV PRN (12:52)
[2017-11-24] MEDS ORDERED: INSULIN REGULAR 100 UNIT/ML SUBCUT SCH (14:00)
[2017-11-24] MEDS: INSULIN REGULAR 100 UNIT/ML SUBCUT SCH ×2 (17:19→23:41)
[2017-11-24] MEDS: ATORVASTATIN 20 MG TABLET PO SCH (20:24)
[2017-11-25] MEDS: MEROPENEM 1,000 MG in SYRINGE 1 EACH IV SCH ×2 (01:03→14:04)
[2017-11-25] MEDS: SODIUM BICARB INJ 50 MEQ in DEXTROSE 5% NACL 0.45% 1,000 ML IV SCH ×3 (01:04→21:07)
[2017-11-25 05:59] LABS: Basophils % 0.3 % (0.0-0.8); Hematocrit 33.2 VOL% (42.0-52.0); Hemoglobin 11.4 GM/DL (14.0-18.0); Immature Granulocytes % 1.9 %; Immature Granulocytes Absolute 0.12 #; Lymphocytes # 1.2 10*3/uL (1.4-4.0); Lymphocytes % 19.1 % (21.2-54.2); Mean Corpuscular HGB Conc 34.3 GM/DL (32-36); Mean Corpuscular Hemoglobin 29 PG (27-34); Mean Corpuscular Volume 83.8 FL (87-102); Mean Platelet Volume 10.1 FL (9.6-12.0); Monocytes # 0.9 10*3/uL (0.11-0.8); Monocytes % 14.2 % (1.7-12.7); Neutrophils # 4.2 10*3/uL (1.4-7.4); Neutrophils % 64.5 % (38.7-73.9); Platelet Count 203 T/CUMM (130-400); Red Blood Count 3.96 MC/CUMM (3.8-5.5); Red Cell Distribution Width 15.7 % (9.3-17.3); White Blood Count 6.5 T/CUMM (4-12)
[2017-11-25 06:38] LABS: Band Neutrophils 1 % (0-10); Hypochromasia 1+; Lymphocytes 16 % (20-55); Microcytosis 1+; Myelocytes 1 %; Segmented Neutrophils 69 % (50-85); Total Cells Counted 100
[2017-11-25 06:39] LABS: Platelet Estimate Normal
[2017-11-25] MEDS: INSULIN REGULAR 100 UNIT/ML SUBCUT SCH ×4 (08:14→21:08)
[2017-11-25] MEDS: SODIUM BICARBONATE 650 MG TABLET PO SCH ×2 (08:15→21:01)
[2017-11-25] MEDS: FINASTERIDE 5 MG TABLET PO SCH (08:15)
[2017-11-25] MEDS: ASPIRIN EC 81 MG TABLET PO SCH (08:15)
[2017-11-25] MEDS: PHYTONADIONE 5 MG/5 ML ORAL.SYR PO SCH (08:15)
[2017-11-25] MEDS: LEVOTHYROXINE 100 MCG TABLET PO SCH (08:15)
[2017-11-25] MEDS: PANTOPRAZOLE 40 MG TABLET PO SCH (08:16)
[2017-11-25] MEDS: TAMSULOSIN 0.4 MG CAPSULE PO SCH ×2 (08:16→21:00)
[2017-11-25] MEDS: AMIODARONE 200 MG TABLET PO SCH (08:16)
[2017-11-25] MEDS: SKIN HEALING OINT (AQUAPHOR) 50 GM TUBE TOP SCH (10:10)
[2017-11-25] MEDS: CHLORHEXIDINE 4% SOLN 118 ML BOTTLE TOP SCH (10:10)
[2017-11-25] MEDS: ATORVASTATIN 20 MG TABLET PO SCH (21:00)
[2017-11-26] MEDS: MEROPENEM 1,000 MG in SYRINGE 1 EACH IV SCH ×2 (01:46→14:26)
[2017-11-26 07:25] LABS: Basophils % 0.1 % (0.0-0.8); Hemoglobin 11.3 GM/DL (14.0-18.0); Immature Granulocytes % 2.9 %; Immature Granulocytes Absolute 0.23 #; Lymphocytes # 1.6 10*3/uL (1.4-4.0); Lymphocytes % 20.2 % (21.2-54.2); Mean Corpuscular HGB Conc 33.2 GM/DL (32-36); Mean Corpuscular Hemoglobin 29 PG (27-34); Mean Corpuscular Volume 85.9 FL (87-102); Mean Platelet Volume 10.1 FL (9.6-12.0); Monocytes # 0.9 10*3/uL (0.11-0.8); Monocytes % 11.6 % (1.7-12.7); Neutrophils # 5.1 10*3/uL (1.4-7.4); Neutrophils % 65.2 % (38.7-73.9); Platelet Count 212 T/CUMM (130-400); Red Blood Count 3.96 MC/CUMM (3.8-5.5); Red Cell Distribution Width 15.6 % (9.3-17.3); White Blood Count 7.8 T/CUMM (4-12)
[2017-11-26 07:56] LABS: Potassium 3.5 MMOL/L (3.5-5.1)
[2017-11-26] MEDS: INSULIN REGULAR 100 UNIT/ML SUBCUT SCH ×4 (08:47→20:55)
[2017-11-26] MEDS: TAMSULOSIN 0.4 MG CAPSULE PO SCH ×2 (08:49→20:52)
[2017-11-26] MEDS: LEVOTHYROXINE 100 MCG TABLET PO SCH (08:49)
[2017-11-26] MEDS: SODIUM BICARBONATE 650 MG TABLET PO SCH ×2 (08:49→20:51)
[2017-11-26] MEDS: AMIODARONE 200 MG TABLET PO SCH (08:49)
[2017-11-26] MEDS: FINASTERIDE 5 MG TABLET PO SCH (08:49)
[2017-11-26] MEDS: PANTOPRAZOLE 40 MG TABLET PO SCH (08:49)
[2017-11-26] MEDS: ASPIRIN EC 81 MG TABLET PO SCH (08:49)
[2017-11-26] MEDS: SKIN HEALING OINT (AQUAPHOR) 50 GM TUBE TOP SCH (08:50)
[2017-11-26] MEDS: CHLORHEXIDINE 4% SOLN 118 ML BOTTLE TOP SCH (08:50)
[2017-11-26] MEDS: SODIUM BICARB INJ 50 MEQ in DEXTROSE 5% NACL 0.45% 1,000 ML IV SCH ×2 (08:55→08:56)
[2017-11-26] MEDS: ONDANSETRON 4 MG/2 ML VIAL IV PRN ×2 (10:02→17:48)
[2017-11-26] MEDS: ERTAPENEM 1,000 MG in SODIUM CHLORIDE 0.9% 100 ML IV SCH (17:44)
[2017-11-26] MEDS: ATORVASTATIN 20 MG TABLET PO SCH (20:51)
[2017-11-27 06:35] LABS: Basophils # 0.1 10*3/uL (0.0-0.2); Basophils % 0.5 % (0.0-0.8); Hematocrit 35.9 VOL% (42.0-52.0); Hemoglobin 12.3 GM/DL (14.0-18.0); Immature Granulocytes % 4.2 %; Immature Granulocytes Absolute 0.41 #; Lymphocytes # 1.7 10*3/uL (1.4-4.0); Lymphocytes % 17.8 % (21.2-54.2); Mean Corpuscular HGB Conc 34.3 GM/DL (32-36); Mean Corpuscular Hemoglobin 29 PG (27-34); Mean Corpuscular Volume 84.7 FL (87-102); Mean Platelet Volume 10.3 FL (9.6-12.0); Monocytes # 0.9 10*3/uL (0.11-0.8); Monocytes % 9.6 % (1.7-12.7); Neutrophils # 6.6 10*3/uL (1.4-7.4); Neutrophils % 67.9 % (38.7-73.9); Platelet Count 259 T/CUMM (130-400); Red Blood Count 4.24 MC/CUMM (3.8-5.5); Red Cell Distribution Width 15.5 % (9.3-17.3); White Blood Count 9.7 T/CUMM (4-12)
[2017-11-27 07:03] LABS: Calcium 7.1 MG/DL (8.5-10.1); Osmolality,Calculated 282.5 MOS/KG (273-304); Potassium 3.6 MMOL/L (3.5-5.1)
[2017-11-27] MEDS: SODIUM BICARBONATE 650 MG TABLET PO SCH ×2 (09:16→20:44)
[2017-11-27] MEDS: ASPIRIN EC 81 MG TABLET PO SCH (09:17)
[2017-11-27] MEDS: LEVOTHYROXINE 100 MCG TABLET PO SCH (09:17)
[2017-11-27] MEDS: TAMSULOSIN 0.4 MG CAPSULE PO SCH ×2 (09:17→20:45)
[2017-11-27] MEDS: INSULIN REGULAR 100 UNIT/ML SUBCUT SCH ×4 (09:17→20:45)
[2017-11-27] MEDS: AMIODARONE 200 MG TABLET PO SCH (09:17)
[2017-11-27] MEDS: PANTOPRAZOLE 40 MG TABLET PO SCH (09:17)
[2017-11-27] MEDS: SKIN HEALING OINT (AQUAPHOR) 50 GM TUBE TOP SCH (09:18)
[2017-11-27] MEDS: CHLORHEXIDINE 4% SOLN 118 ML BOTTLE TOP SCH (09:18)
[2017-11-27] MEDS: FINASTERIDE 5 MG TABLET PO SCH (09:23)
[2017-11-27] MEDS: ERTAPENEM 1,000 MG in SODIUM CHLORIDE 0.9% 100 ML IV SCH (13:20)
[2017-11-27] MEDS: ATORVASTATIN 20 MG TABLET PO SCH (20:46)
[2017-11-28 05:46] LABS: Basophils % 0.3 % (0.0-0.8); Hematocrit 34.8 VOL% (42.0-52.0); Hemoglobin 11.9 GM/DL (14.0-18.0); Immature Granulocytes % 4.1 %; Immature Granulocytes Absolute 0.41 #; Lymphocytes # 1.7 10*3/uL (1.4-4.0); Lymphocytes % 17.4 % (21.2-54.2); Mean Corpuscular HGB Conc 34.2 GM/DL (32-36); Mean Corpuscular Hemoglobin 29 PG (27-34); Mean Corpuscular Volume 84.7 FL (87-102); Mean Platelet Volume 9.9 FL (9.6-12.0); Monocytes % 9.9 % (1.7-12.7); Neutrophils # 6.8 10*3/uL (1.4-7.4); Neutrophils % 68.3 % (38.7-73.9); Platelet Count 259 T/CUMM (130-400); Red Blood Count 4.11 MC/CUMM (3.8-5.5); Red Cell Distribution Width 15.3 % (9.3-17.3); White Blood Count 9.9 T/CUMM (4-12)
[2017-11-28 06:08] LABS: Calcium 7.1 MG/DL (8.5-10.1); Osmolality,Calculated 280.7 MOS/KG (273-304); Potassium 3.6 MMOL/L (3.5-5.1)
[2017-11-28] MEDS: INSULIN REGULAR 100 UNIT/ML SUBCUT SCH ×4 (07:56→21:27)
[2017-11-28] MEDS: TAMSULOSIN 0.4 MG CAPSULE PO SCH ×2 (08:56→21:25)
[2017-11-28] MEDS: SODIUM BICARBONATE 650 MG TABLET PO SCH ×2 (08:56→21:25)
[2017-11-28] MEDS: PANTOPRAZOLE 40 MG TABLET PO SCH (08:56)
[2017-11-28] MEDS: LEVOTHYROXINE 100 MCG TABLET PO SCH (08:56)
[2017-11-28] MEDS: FINASTERIDE 5 MG TABLET PO SCH (08:56)
[2017-11-28] MEDS: AMIODARONE 200 MG TABLET PO SCH (08:56)
[2017-11-28] MEDS: ASPIRIN EC 81 MG TABLET PO SCH (08:56)
[2017-11-28] MEDS: CHLORHEXIDINE 4% SOLN 118 ML BOTTLE TOP SCH (08:57)
[2017-11-28] MEDS: SKIN HEALING OINT (AQUAPHOR) 50 GM TUBE TOP SCH (08:57)
[2017-11-28] MEDS: ERTAPENEM 1,000 MG in SODIUM CHLORIDE 0.9% 100 ML IV SCH (09:29)
[2017-11-28] MEDS: ONDANSETRON 4 MG/2 ML VIAL IV PRN (14:02)
[2017-11-28] MEDS: ATORVASTATIN 20 MG TABLET PO SCH (21:25)
[2017-11-28] MEDS: ZALEPLON 5 MG CAPSULE PO PRN (21:26)
[2017-11-29 05:49] LABS: Basophils % 0.3 % (0.0-0.8); Hemoglobin 11.6 GM/DL (14.0-18.0); Immature Granulocytes % 3.3 %; Immature Granulocytes Absolute 0.32 #; Lymphocytes # 1.8 10*3/uL (1.4-4.0); Lymphocytes % 18.6 % (21.2-54.2); Mean Corpuscular HGB Conc 34.1 GM/DL (32-36); Mean Corpuscular Hemoglobin 29 PG (27-34); Mean Platelet Volume 9.6 FL (9.6-12.0); Monocytes # 0.9 10*3/uL (0.11-0.8); Neutrophils # 6.7 10*3/uL (1.4-7.4); Neutrophils % 68.8 % (38.7-73.9); Platelet Count 271 T/CUMM (130-400); Red Blood Count 4.05 MC/CUMM (3.8-5.5); Red Cell Distribution Width 15.4 % (9.3-17.3); White Blood Count 9.8 T/CUMM (4-12)
[2017-11-29 06:39] LABS: Calcium 7.4 MG/DL (8.5-10.1); Osmolality,Calculated 278.5 MOS/KG (273-304); Potassium 3.5 MMOL/L (3.5-5.1)
[2017-11-29] MEDS: INSULIN REGULAR 100 UNIT/ML SUBCUT SCH ×4 (07:54→21:02)
[2017-11-29] MEDS: CHLORHEXIDINE 4% SOLN 118 ML BOTTLE TOP SCH (09:13)
[2017-11-29] MEDS: FINASTERIDE 5 MG TABLET PO SCH (09:14)
[2017-11-29] MEDS: SKIN HEALING OINT (AQUAPHOR) 50 GM TUBE TOP SCH (09:14)
[2017-11-29] MEDS: SODIUM BICARBONATE 650 MG TABLET PO SCH ×2 (09:14→21:01)
[2017-11-29] MEDS: LEVOTHYROXINE 100 MCG TABLET PO SCH (09:16)
[2017-11-29] MEDS: ASPIRIN EC 81 MG TABLET PO SCH (09:16)
[2017-11-29] MEDS: PANTOPRAZOLE 40 MG TABLET PO SCH (09:16)
[2017-11-29] MEDS: TAMSULOSIN 0.4 MG CAPSULE PO SCH ×2 (09:16→21:01)
[2017-11-29] MEDS: AMIODARONE 200 MG TABLET PO SCH (09:16)
[2017-11-29] MEDS: ERTAPENEM 1,000 MG in SODIUM CHLORIDE 0.9% 100 ML IV SCH (10:45)
[2017-11-29] MEDS: ZALEPLON 5 MG CAPSULE PO PRN (21:01)
[2017-11-29] MEDS: ATORVASTATIN 20 MG TABLET PO SCH (21:01)
[2017-11-30] MEDS: INSULIN REGULAR 100 UNIT/ML SUBCUT SCH ×2 (07:44→11:36)
[2017-11-30 07:45] VITALS: BP 160/74
[2017-11-30] MEDS: SKIN HEALING OINT (AQUAPHOR) 50 GM TUBE TOP SCH (08:43)
[2017-11-30] MEDS: SODIUM BICARBONATE 650 MG TABLET PO SCH (08:43)
[2017-11-30] MEDS: AMIODARONE 200 MG TABLET PO SCH (08:43)
[2017-11-30] MEDS: TAMSULOSIN 0.4 MG CAPSULE PO SCH (08:43)
[2017-11-30] MEDS: FINASTERIDE 5 MG TABLET PO SCH (08:43)
[2017-11-30] MEDS: ERTAPENEM 1,000 MG in SODIUM CHLORIDE 0.9% 100 ML IV SCH (08:43)
[2017-11-30] MEDS: PANTOPRAZOLE 40 MG TABLET PO SCH (08:43)
[2017-11-30] MEDS: ASPIRIN EC 81 MG TABLET PO SCH (08:43)
[2017-11-30] MEDS: LEVOTHYROXINE 100 MCG TABLET PO SCH (08:44)
[2017-11-30] MEDS: CHLORHEXIDINE 4% SOLN 118 ML BOTTLE TOP SCH (08:45)
== END 2017-11-30 11:35 | DRG 872 ==
LOC: N.ED 09:14 → SUATTDRO 11:51 → N.EDINP 11:51 → N.2E 18:05
PROVIDERS: ADMIT Internal Medicine; ATTEND Internal Medicine

== ENCOUNTER 2018-02-06 21:32 | Inpatient (IN) ==
[2018-02-06] MEDS ORDERED: VECURONIUM 10 MG VIAL IV ONE (21:33)
[2018-02-06] MEDS ORDERED: methylPREDNISolone SOD SUC 125 MG/2 ML VIAL IV STA (21:39)
[2018-02-06] MEDS ORDERED: AZITHROMYCIN INJ 500 MG in SODIUM CHLORIDE 0.9% 250 ML IV STA (21:39)
[2018-02-06] MEDS ORDERED: cefTRIAXone 1,000 MG in SODIUM CHLORIDE 0.9% 100 ML IV STA (21:39)
[2018-02-06] MEDS ORDERED: DEXTROSE 50% 25 GM/50 ML VIAL IV STA (21:43)
[2018-02-06] MEDS: PROPOFOL 1,000 MG/100 ML BOTTLE IV SCH (21:59)
[2018-02-06] MEDS ORDERED: ALBUTEROL 2.5 MG/3 ML NEB RESP TX SCH (22:00)
[2018-02-06 22:30] LABS: Basophils % 0.2 % (0.0-0.8); Hematocrit 23.3 VOL% (42.0-52.0); Hemoglobin 7.4 GM/DL (14.0-18.0); Immature Granulocytes % 0.5 %; Immature Granulocytes Absolute 0.07 #; Lymphocytes # 2.1 10*3/uL (1.4-4.0); Mean Corpuscular HGB Conc 31.8 GM/DL (32-36); Mean Corpuscular Hemoglobin 31 PG (27-34); Mean Corpuscular Volume 96.7 FL (87-102); Mean Platelet Volume 9.8 FL (9.6-12.0); Monocytes # 1.1 10*3/uL (0.11-0.8); Monocytes % 8.2 % (1.7-12.7); Neutrophils # 9.7 10*3/uL (1.4-7.4); Neutrophils % 75.1 % (38.7-73.9); Platelet Count 231 T/CUMM (130-400); Red Blood Count 2.41 MC/CUMM (3.8-5.5); Red Cell Distribution Width 17.1 % (9.3-17.3); White Blood Count 12.9 T/CUMM (4-12)
[2018-02-06 22:36] LABS: Apearance,Urine CLEAR (Clear); Bilirubin,Urine Negative (Negative); Blood, Urine Negative (Negative); Glucose,Urine (UA) Negative (Negative); Ketones,Urine Negative (Negative); Mucus,Urine Occasional /LPF (Occasional); Nitrite,Urine Negative (Negative); Protein,Urine 30 MG/DL; RBC,Urine 4 /HPF (0-4); Squamous Epithelial Cell,Urine Occasional /HPF (0-10); Urine Color Yellow (Yellow); Urine Specific Gravity 1.008 (1.001-1.035); Urine Urobilinogen < 2.0 EU/DL (0.2-1.0); WBC,Urine 1 /HPF (0-6)
[2018-02-06 22:39] LABS: INR 1.2; PT Patient Result 12.6 SECS
[2018-02-06 22:40] LABS: Alanine Aminotransferase 23 U/L (16-61); Albumin 2.1 G/DL (3.4-5.0); Alkaline Phosphatase 141 U/L (45-117); Aspartate Amino Transferase 30 U/L (0-37); Bilirubin,Total < 0.39 MG/DL (0.2-1.0); Blood Urea Nitrogen 82 MG/DL (7-18); Calcium 7.5 MG/DL (8.5-10.1); Glucose 164 MG/DL (74-106); Osmolality,Calculated 305.5 MOS/KG (273-304); Sodium 139 MMOL/L (136-145); Total Protein 6.3 G/DL (6.4-8.3); Troponin I < 0.015 NG/ML (0.00-0.045)
[2018-02-06 22:50] LABS: ABG Base Excess -7.2 MMOL/L (-2.5-2.5); ABG HCO3 18.5 MMOL/L (20-26); ABG Oxygen Saturation 99.5 % (95-100); ABG PCO2 63.5 MM HG (35-48); ABG TCO2 21.3 MMOL/L (23-27); Allen Test Positive; Pt O2 Delivery Device Ventilator
[2018-02-06 22:52] LABS: ABG PH 7.146 (7.35-7.45)
[2018-02-07] MEDS ORDERED: AZITHROMYCIN 500 MG VIAL IV ONE (00:54)
[2018-02-07 01:19] LABS: ABG Base Excess -6.5 MMOL/L (-2.5-2.5); ABG HCO3 18.3 MMOL/L (20-26); ABG PCO2 34.3 MM HG (35-48); ABG PH 7.344 (7.35-7.45); ABG PO2 338.1 MM HG (80-95); ABG TCO2 19.3 MMOL/L (23-27)
[2018-02-07 01:24] LABS: ABG Oxygen Saturation 99.7 % (95-100)
[2018-02-07] MEDS ORDERED: NITROGLYCERIN SL 0.4 MG TABLET SL PRN (01:58)
[2018-02-07] MEDS ORDERED: ONDANSETRON 4 MG/2 ML VIAL IV PRN (01:58)
[2018-02-07] MEDS ORDERED: PROMETHAZINE 25 MG/1 ML VIAL IM PRN (01:58)
[2018-02-07] MEDS ORDERED: METOCLOPRAMIDE 10 MG TABLET PO PRN (01:58)
[2018-02-07] MEDS ORDERED: ACETAMINOPHEN 325 MG TABLET PO PRN (01:58)
[2018-02-07] MEDS ORDERED: ALBUTEROL 2.5 MG/3 ML NEB RESP TX PRN (01:58)
[2018-02-07] MEDS ORDERED: DEXTROSE 50% 25 GM/50 ML VIAL IV PRN (02:08)
[2018-02-07] MEDS ORDERED: GLUCAGON 1 MG VIAL IM PRN (02:08)
[2018-02-07] MEDS ORDERED: SODIUM CHLORIDE 0.9% 1,000 ML IV PRN ×2 (02:24→02:54)
[2018-02-07] MEDS ORDERED: MIDAZOLAM 100 MG in SODIUM CHLORIDE 0.9% 80 ML IV PRN (02:24)
[2018-02-07] MEDS ORDERED: FUROSEMIDE 20 MG/2 ML VIAL IV PRN (02:24)
[2018-02-07 03:16] LABS: Basophils % 0.1 % (0.0-0.8); Hematocrit 25.9 VOL% (42.0-52.0); Immature Granulocytes % 0.4 %; Immature Granulocytes Absolute 0.04 #; Lymphocytes # 0.6 10*3/uL (1.4-4.0); Lymphocytes % 6.2 % (21.2-54.2); Mean Corpuscular HGB Conc 30.9 GM/DL (32-36); Mean Corpuscular Hemoglobin 31 PG (27-34); Mean Corpuscular Volume 98.9 FL (87-102); Monocytes # 0.4 10*3/uL (0.11-0.8); Monocytes % 4.8 % (1.7-12.7); Neutrophils # 7.9 10*3/uL (1.4-7.4); Neutrophils % 88.5 % (38.7-73.9); Platelet Count 176 T/CUMM (130-400); Red Blood Count 2.62 MC/CUMM (3.8-5.5); Red Cell Distribution Width 16.7 % (9.3-17.3); White Blood Count 8.9 T/CUMM (4-12)
[2018-02-07] MEDS ORDERED: SODIUM CHLORIDE 0.9% 250 ML IV ONE (03:25)
[2018-02-07 03:59] LABS: Folate 14.5 NG/ML (5.4-24.0); Vitamin B12 930 PG/ML (211-911)
[2018-02-07 04:03] LABS: Calcium 7.7 MG/DL (8.5-10.1); Osmolality,Calculated 309.3 MOS/KG (273-304); Potassium 3.8 MMOL/L (3.5-5.1); Thyroid Stimulating Hormone 16.4 uIU/ml (0.358-3.74)
[2018-02-07 04:13] LABS: ABG Base Excess -6.1 MMOL/L (-2.5-2.5); ABG HCO3 19.4 MMOL/L (20-26); ABG PCO2 31.3 MM HG (35-48); ABG PH 7.377 (7.35-7.45); ABG TCO2 17.4 MMOL/L (23-27)
[2018-02-07 04:30] LABS: Sedimentation Rate-Westergren 100 MM/HR (0-20)
[2018-02-07 04:37] LABS: Band Neutrophils 10 % (0-10); Lymphocytes 8 % (20-55); Segmented Neutrophils 79 % (50-85); Total Cells Counted 100
[2018-02-07 04:43] LABS: Hypochromasia 1+; Platelet Estimate Normal
[2018-02-07 04:45] LABS: % Iron Saturation 7.5 % (18-50); Ferritin 770.1 ng/ml (26-388)
[2018-02-07] MEDS ORDERED: LEVOTHYROXINE 50 MCG TABLET PO SCH (06:00)
[2018-02-07] MEDS: LEVOFLOXACIN INJ 750 MG in PREMIX 1 EACH IV SCH (06:03)
[2018-02-07] MEDS: PIPERACILLIN/TAZOBACTAM 3,375 MG in SODIUM CHLORIDE 0.9% 100 ML IV SCH ×4 (06:03→22:23)
[2018-02-07] MEDS: ALBUTEROL/IPRATROPIUM 3 ML NEB RESP TX SCH ×3 (07:34→20:24)
[2018-02-07 08:03] LABS: Hemoglobin A1 (Alkaline) 97.2 % (96.5-98.5); Hemoglobin A2 (Alkaline) 2.8 % (1.5-3.5)
[2018-02-07] MEDS ORDERED: NITROFURANTOIN MACRO/MONO 100 MG CAPSULE PO SCH (09:00)
[2018-02-07] MEDS ORDERED: PANTOPRAZOLE 40 MG TABLET PO SCH (09:00)
[2018-02-07] MEDS: amLODIPine 10 MG TABLET PO SCH (09:36)
[2018-02-07] MEDS: ASPIRIN EC 81 MG TABLET PO SCH (09:49)
[2018-02-07] MEDS: FAMOTIDINE 20 MG TABLET PO SCH (09:49)
[2018-02-07] MEDS: CARVEDILOL 12.5 MG TABLET PO SCH ×2 (09:49→17:24)
[2018-02-07] MEDS: MULTIVITAMIN (CENTRUM) TABLET PO SCH (09:50)
[2018-02-07] MEDS: LEVOTHYROXINE 100 MCG TABLET PO SCH (09:51)
[2018-02-07] MEDS: miSOPROStol 200 MCG TABLET PO SCH ×4 (09:51→22:22)
[2018-02-07] MEDS: TAMSULOSIN 0.4 MG CAPSULE PO SCH ×2 (09:51→22:22)
[2018-02-07] MEDS: FUROSEMIDE 20 MG/2 ML VIAL IV SCH ×2 (10:05→18:03)
[2018-02-07] MEDS: methylPREDNISolone SOD SUC 40 MG/1 ML VIAL IV SCH ×2 (10:05→22:22)
[2018-02-07] MEDS: SKIN HEALING OINT (AQUAPHOR) 50 GM TUBE TOP SCH ×3 (10:06→22:21)
[2018-02-07] MEDS: POLYETHYLENE GLYCOL POWDER 17 GM PACK PO SCH (10:06)
[2018-02-07 10:33] LABS: ABG HCO3 17.9 MMOL/L (20-26); ABG Oxygen Saturation 99.6 % (95-100); ABG PCO2 29.7 MM HG (35-48); ABG PH 7.356 (7.35-7.45); ABG TCO2 15.5 MMOL/L (23-27)
[2018-02-07 12:04] LABS: ABG Base Excess -6.8 MMOL/L (-2.5-2.5); ABG HCO3 18.9 MMOL/L (20-26); ABG Oxygen Saturation 99.6 % (95-100); ABG PCO2 29.4 MM HG (35-48); ABG PH 7.381 (7.35-7.45); ABG TCO2 16.2 MMOL/L (23-27)
[2018-02-07] MEDS: FERRIC GLUCONATE COMPLEX 125 MG in SODIUM CHLORIDE 0.9% 100 ML IV SCH (12:22)
[2018-02-07] MEDS: INSULIN LISPRO 100 UNIT/ML SUBCUT SCH (22:22)
[2018-02-07] MEDS: GABAPENTIN 100 MG CAPSULE PO SCH (22:22)
[2018-02-07] MEDS: PROPOFOL 1,000 MG/100 ML BOTTLE IV SCH (22:22)
[2018-02-08] MEDS: ALBUTEROL/IPRATROPIUM 3 ML NEB RESP TX SCH ×4 (00:53→19:25)
[2018-02-08] MEDS: INSULIN LISPRO 100 UNIT/ML SUBCUT SCH ×6 (01:51→20:54)
[2018-02-08 03:52] LABS: ABG Base Excess -5.6 MMOL/L (-2.5-2.5); ABG HCO3 17.2 MMOL/L (20-26); ABG Oxygen Saturation 97.8 % (95-100); ABG PCO2 25.1 MM HG (35-48); ABG PH 7.454 (7.35-7.45); ABG PO2 119.3 MM HG (80-95)
[2018-02-08] MEDS: PIPERACILLIN/TAZOBACTAM 3,375 MG in SODIUM CHLORIDE 0.9% 100 ML IV SCH ×4 (05:08→21:02)
[2018-02-08] MEDS: LEVOTHYROXINE 100 MCG TABLET PO SCH (05:09)
[2018-02-08 05:32] LABS: Hematocrit 26.7 VOL% (42.0-52.0); Hemoglobin 8.8 GM/DL (14.0-18.0); Immature Granulocytes % 0.7 %; Immature Granulocytes Absolute 0.04 #; Lymphocytes # 0.8 10*3/uL (1.4-4.0); Lymphocytes % 12.7 % (21.2-54.2); Mean Corpuscular Hemoglobin 30 PG (27-34); Mean Corpuscular Volume 89.6 FL (87-102); Mean Platelet Volume 10.3 FL (9.6-12.0); Monocytes # 0.4 10*3/uL (0.11-0.8); Monocytes % 6.1 % (1.7-12.7); Neutrophils # 4.9 10*3/uL (1.4-7.4); Neutrophils % 80.5 % (38.7-73.9); Platelet Count 221 T/CUMM (130-400); Red Blood Count 2.98 MC/CUMM (3.8-5.5); Red Cell Distribution Width 17.7 % (9.3-17.3)
[2018-02-08 05:42] LABS: Calcium 7.7 MG/DL (8.5-10.1); Osmolality,Calculated 315.8 MOS/KG (273-304); Potassium 3.5 MMOL/L (3.5-5.1)
[2018-02-08 05:57] LABS: Anisocytosis 1+; Hypochromasia Slight; Microcytosis 1+
[2018-02-08 05:58] LABS: Platelet Estimate Normal
[2018-02-08] MEDS: MULTIVITAMIN (CENTRUM) TABLET PO SCH (08:56)
[2018-02-08] MEDS: miSOPROStol 200 MCG TABLET PO SCH ×4 (08:56→20:55)
[2018-02-08] MEDS: FUROSEMIDE 20 MG/2 ML VIAL IV SCH ×2 (08:57→16:44)
[2018-02-08] MEDS: amLODIPine 10 MG TABLET PO SCH (08:57)
[2018-02-08] MEDS: FAMOTIDINE 20 MG TABLET PO SCH (08:57)
[2018-02-08] MEDS: ASPIRIN EC 81 MG TABLET PO SCH (08:57)
[2018-02-08] MEDS: TAMSULOSIN 0.4 MG CAPSULE PO SCH ×2 (08:57→20:55)
[2018-02-08] MEDS: CARVEDILOL 12.5 MG TABLET PO SCH ×2 (08:57→17:35)
[2018-02-08] MEDS: POLYETHYLENE GLYCOL POWDER 17 GM PACK PO SCH (08:58)
[2018-02-08] MEDS: FERRIC GLUCONATE COMPLEX 125 MG in SODIUM CHLORIDE 0.9% 100 ML IV SCH (08:58)
[2018-02-08] MEDS: SKIN HEALING OINT (AQUAPHOR) 50 GM TUBE TOP SCH ×3 (08:58→20:55)
[2018-02-08] MEDS: methylPREDNISolone SOD SUC 40 MG/1 ML VIAL IV SCH ×2 (08:58→20:56)
[2018-02-08] MEDS: GABAPENTIN 100 MG CAPSULE PO SCH (20:56)
[2018-02-08] MEDS: PROPOFOL 1,000 MG/100 ML BOTTLE IV SCH (21:05)
[2018-02-09] MEDS: INSULIN LISPRO 100 UNIT/ML SUBCUT SCH ×6 (00:35→21:41)
[2018-02-09] MEDS: ALBUTEROL/IPRATROPIUM 3 ML NEB RESP TX SCH ×4 (01:04→19:48)
[2018-02-09] MEDS: LEVOFLOXACIN INJ 750 MG in PREMIX 1 EACH IV SCH (02:17)
[2018-02-09] MEDS: PIPERACILLIN/TAZOBACTAM 3,375 MG in SODIUM CHLORIDE 0.9% 100 ML IV SCH ×4 (04:14→21:43)
[2018-02-09 04:27] LABS: ABG Base Excess -4.1 MMOL/L (-2.5-2.5); ABG Oxygen Saturation 98.4 % (95-100); ABG PCO2 31.7 MM HG (35-48); ABG PH 7.401 (7.35-7.45); ABG TCO2 17.3 MMOL/L (23-27); Pt O2 Delivery Device Room Air
[2018-02-09] MEDS: LEVOTHYROXINE 100 MCG TABLET PO SCH (05:26)
[2018-02-09 06:25] LABS: Basophils % 0.2 % (0.0-0.8); Hematocrit 30.9 VOL% (42.0-52.0); Immature Granulocytes % 0.7 %; Immature Granulocytes Absolute 0.04 #; Lymphocytes # 0.6 10*3/uL (1.4-4.0); Lymphocytes % 10.5 % (21.2-54.2); Mean Corpuscular HGB Conc 32.4 GM/DL (32-36); Mean Corpuscular Hemoglobin 29 PG (27-34); Mean Corpuscular Volume 90.6 FL (87-102); Mean Platelet Volume 9.9 FL (9.6-12.0); Monocytes # 0.2 10*3/uL (0.11-0.8); Monocytes % 3.9 % (1.7-12.7); Neutrophils # 5.2 10*3/uL (1.4-7.4); Neutrophils % 84.7 % (38.7-73.9); Platelet Count 246 T/CUMM (130-400); Red Blood Count 3.41 MC/CUMM (3.8-5.5); Red Cell Distribution Width 17.5 % (9.3-17.3); White Blood Count 6.1 T/CUMM (4-12)
[2018-02-09 06:39] LABS: Calcium 7.8 MG/DL (8.5-10.1); Osmolality,Calculated 309.3 MOS/KG (273-304); Potassium 3.5 MMOL/L (3.5-5.1)
[2018-02-09] MEDS: CARVEDILOL 12.5 MG TABLET PO SCH ×2 (07:55→16:06)
[2018-02-09] MEDS: FUROSEMIDE 20 MG/2 ML VIAL IV SCH ×2 (07:56→16:03)
[2018-02-09] MEDS: POLYETHYLENE GLYCOL POWDER 17 GM PACK PO SCH (08:03)
[2018-02-09] MEDS: FAMOTIDINE 20 MG TABLET PO SCH (08:03)
[2018-02-09] MEDS: MULTIVITAMIN (CENTRUM) TABLET PO SCH (08:03)
[2018-02-09] MEDS: ASPIRIN EC 81 MG TABLET PO SCH (08:04)
[2018-02-09] MEDS: TAMSULOSIN 0.4 MG CAPSULE PO SCH ×2 (08:04→21:42)
[2018-02-09] MEDS: miSOPROStol 200 MCG TABLET PO SCH ×4 (08:05→21:43)
[2018-02-09] MEDS: FERRIC GLUCONATE COMPLEX 125 MG in SODIUM CHLORIDE 0.9% 100 ML IV SCH (08:05)
[2018-02-09] MEDS: SKIN HEALING OINT (AQUAPHOR) 50 GM TUBE TOP SCH ×3 (08:05→21:44)
[2018-02-09] MEDS: amLODIPine 10 MG TABLET PO SCH (08:07)
[2018-02-09] MEDS: methylPREDNISolone SOD SUC 40 MG/1 ML VIAL IV SCH ×2 (08:57→21:41)
[2018-02-09] MEDS: GABAPENTIN 100 MG CAPSULE PO SCH (21:43)
[2018-02-10] MEDS: ALBUTEROL/IPRATROPIUM 3 ML NEB RESP TX SCH ×4 (00:34→19:17)
[2018-02-10] MEDS: PROPOFOL 1,000 MG/100 ML BOTTLE IV SCH (02:05)
[2018-02-10] MEDS: INSULIN LISPRO 100 UNIT/ML SUBCUT SCH ×6 (02:35→21:56)
[2018-02-10] MEDS: PIPERACILLIN/TAZOBACTAM 3,375 MG in SODIUM CHLORIDE 0.9% 100 ML IV SCH ×4 (04:27→21:14)
[2018-02-10] MEDS: LEVOTHYROXINE 100 MCG TABLET PO SCH (06:28)
[2018-02-10] MEDS: POLYETHYLENE GLYCOL POWDER 17 GM PACK PO SCH (09:02)
[2018-02-10] MEDS: FAMOTIDINE 20 MG TABLET PO SCH (09:03)
[2018-02-10] MEDS: methylPREDNISolone SOD SUC 40 MG/1 ML VIAL IV SCH ×2 (09:03→21:14)
[2018-02-10] MEDS: CARVEDILOL 12.5 MG TABLET PO SCH ×2 (09:04→16:53)
[2018-02-10] MEDS: FUROSEMIDE 20 MG/2 ML VIAL IV SCH ×2 (09:04→16:51)
[2018-02-10] MEDS: SKIN HEALING OINT (AQUAPHOR) 50 GM TUBE TOP SCH ×3 (09:04→22:01)
[2018-02-10] MEDS: ASPIRIN EC 81 MG TABLET PO SCH (09:04)
[2018-02-10] MEDS: TAMSULOSIN 0.4 MG CAPSULE PO SCH ×2 (09:04→21:15)
[2018-02-10] MEDS: amLODIPine 10 MG TABLET PO SCH (09:04)
[2018-02-10] MEDS: MULTIVITAMIN (CENTRUM) TABLET PO SCH (09:04)
[2018-02-10] MEDS: miSOPROStol 200 MCG TABLET PO SCH ×4 (09:15→21:15)
[2018-02-10] MEDS: FERRIC GLUCONATE COMPLEX 125 MG in SODIUM CHLORIDE 0.9% 100 ML IV SCH (16:50)
[2018-02-10] MEDS: GABAPENTIN 100 MG CAPSULE PO SCH (21:15)
[2018-02-11] MEDS: ALBUTEROL/IPRATROPIUM 3 ML NEB RESP TX SCH ×2 (00:11→07:38)
[2018-02-11] MEDS: LEVOFLOXACIN INJ 750 MG in PREMIX 1 EACH IV SCH (03:06)
[2018-02-11] MEDS: INSULIN LISPRO 100 UNIT/ML SUBCUT SCH ×4 (05:13→12:30)
[2018-02-11] MEDS: PIPERACILLIN/TAZOBACTAM 3,375 MG in SODIUM CHLORIDE 0.9% 100 ML IV SCH ×2 (05:16→09:25)
[2018-02-11 05:36] LABS: Calcium 8.5 MG/DL (8.5-10.1); Osmolality,Calculated 317.7 MOS/KG (273-304); Potassium 3.8 MMOL/L (3.5-5.1)
[2018-02-11] MEDS: LEVOTHYROXINE 100 MCG TABLET PO SCH (06:48)
[2018-02-11] MEDS: ASPIRIN EC 81 MG TABLET PO SCH (08:07)
[2018-02-11] MEDS: amLODIPine 10 MG TABLET PO SCH (08:07)
[2018-02-11] MEDS: FUROSEMIDE 20 MG/2 ML VIAL IV SCH (08:08)
[2018-02-11] MEDS: FAMOTIDINE 20 MG TABLET PO SCH (08:08)
[2018-02-11] MEDS: TAMSULOSIN 0.4 MG CAPSULE PO SCH (08:08)
[2018-02-11] MEDS: miSOPROStol 200 MCG TABLET PO SCH ×2 (08:08→12:30)
[2018-02-11] MEDS: methylPREDNISolone SOD SUC 40 MG/1 ML VIAL IV SCH ×2 (08:08→08:54)
[2018-02-11] MEDS: CARVEDILOL 12.5 MG TABLET PO SCH (08:08)
[2018-02-11] MEDS: MULTIVITAMIN (CENTRUM) TABLET PO SCH (08:08)
[2018-02-11] MEDS: FERRIC GLUCONATE COMPLEX 125 MG in SODIUM CHLORIDE 0.9% 100 ML IV SCH (08:11)
[2018-02-11] MEDS: SKIN HEALING OINT (AQUAPHOR) 50 GM TUBE TOP SCH (08:11)
[2018-02-11] MEDS: POLYETHYLENE GLYCOL POWDER 17 GM PACK PO SCH (08:20)
[2018-02-11 13:10] VITALS: BP 105/58
== END 2018-02-11 14:00 | DRG 208 ==
LOC: N.ED 21:32 → SUATTDRO 23:49 → N.EDINP 02-07 00:13 → N.CC 02-07 00:23 → N.5E 02-09 18:21
PROVIDERS: ADMIT Internal Medicine; ATTEND Hospitalist

== ENCOUNTER 2018-03-12 11:52 | Inpatient (IN) ==
[2018-03-12] MEDS ORDERED: SODIUM CHLORIDE 0.9% 1,000 ML IV STA (12:35)
[2018-03-12 12:59] LABS: Apearance,Urine CLOUDY (Clear); Bacteria,Urine Many /HPF (Few); Bilirubin,Urine Negative (Negative); Blood, Urine Negative (Negative); Glucose,Urine (UA) Negative (Negative); Ketones,Urine Negative (Negative); Nitrite,Urine Negative (Negative); Protein,Urine 30 MG/DL; Squamous Epithelial Cell,Urine Few /HPF (0-10); Urine Color Amber (Yellow); Urine Specific Gravity 1.013 (1.001-1.035); Urine Urobilinogen < 2.0 EU/DL (0.2-1.0); WBC,Urine 50 /HPF (0-6)
[2018-03-12 13:27] LABS: Hematocrit 23.5 VOL% (42.0-52.0); Hemoglobin 7.6 GM/DL (14.0-18.0); Immature Granulocytes % 1.6 %; Immature Granulocytes Absolute 0.07 #; Lymphocytes # 0.7 10*3/uL (1.4-4.0); Lymphocytes % 16.6 % (21.2-54.2); Mean Corpuscular HGB Conc 32.3 GM/DL (32-36); Mean Corpuscular Hemoglobin 31 PG (27-34); Mean Corpuscular Volume 94.4 FL (87-102); Mean Platelet Volume 10.2 FL (9.6-12.0); Monocytes # 0.3 10*3/uL (0.11-0.8); Monocytes % 6.5 % (1.7-12.7); Neutrophils # 3.4 10*3/uL (1.4-7.4); Neutrophils % 75.3 % (38.7-73.9); Platelet Count 140 T/CUMM (130-400); Red Blood Count 2.49 MC/CUMM (3.8-5.5); Red Cell Distribution Width 16.9 % (9.3-17.3); White Blood Count 4.5 T/CUMM (4-12)
[2018-03-12 13:48] LABS: Albumin 1.8 G/DL (3.4-5.0); Bilirubin,Total 0.7 MG/DL (0.2-1.0); Calcium 7.2 MG/DL (8.5-10.1); Lactic Acid 0.9 MMOL/L (0.4-2.0); Osmolality,Calculated 301.1 MOS/KG (273-304); Potassium 4.4 MMOL/L (3.5-5.1)
[2018-03-12] MEDS ORDERED: SODIUM CHLORIDE 0.9% 2,050 ML IV ONE (13:48)
[2018-03-12] MEDS ORDERED: NOREPINEPHRINE 4 MG/4 ML VIAL IV ONE ×2 (14:02→14:04)
[2018-03-12] MEDS ORDERED: PROMETHAZINE 25 MG TABLET PO PRN (14:10)
[2018-03-12] MEDS ORDERED: PROMETHAZINE 25 MG/1 ML VIAL IM PRN (14:10)
[2018-03-12] MEDS ORDERED: GLUCAGON 1 MG VIAL SUBCUT PRN (14:10)
[2018-03-12] MEDS ORDERED: DOCUSATE SODIUM 100 MG CAPSULE PO PRN (14:13)
[2018-03-12] MEDS ORDERED: ALBUTEROL 2.5 MG/3 ML NEB RESP TX PRN (14:13)
[2018-03-12] MEDS: PIPERACILLIN/TAZOBACTAM 3,375 MG in SODIUM CHLORIDE 0.9% 100 ML IV SCH (14:19)
[2018-03-12] MEDS: NOREPINEPHRINE 8 MG in SODIUM CHLORIDE 0.9% 242 ML IV PRN (14:20)
[2018-03-12 16:24] LABS: Band Neutrophils 1 % (0-10); Lymphocytes 13 % (20-55); Segmented Neutrophils 83 % (50-85); Total Cells Counted 100
[2018-03-12 16:25] LABS: Platelet Estimate Adequate; Polychromasia Slight
[2018-03-12 16:26] LABS: Burr Cells 1+
[2018-03-12] MEDS: SODIUM CHLORIDE 0.9% 1,000 ML IV SCH (16:33)
[2018-03-12] MEDS: FERROUS SULFATE 325 MG TABLET PO SCH ×2 (18:00→21:24)
[2018-03-12] MEDS: miSOPROStol 200 MCG TABLET PO SCH ×2 (18:00→21:23)
[2018-03-12] MEDS: INSULIN REGULAR 100 UNIT/ML SUBCUT SCH ×2 (18:00→21:24)
[2018-03-12] MEDS: INSULIN GLARGINE 100 UNIT/ML SUBCUT SCH (21:24)
[2018-03-12] MEDS: TAMSULOSIN 0.4 MG CAPSULE PO SCH (21:24)
[2018-03-12] MEDS: GABAPENTIN 100 MG CAPSULE PO SCH (21:24)
[2018-03-13] MEDS: PIPERACILLIN/TAZOBACTAM 3,375 MG in SODIUM CHLORIDE 0.9% 100 ML IV SCH ×2 (02:29→14:48)
[2018-03-13] MEDS: SODIUM CHLORIDE 0.9% 1,000 ML IV SCH ×4 (02:30→19:33)
[2018-03-13 04:49] LABS: Basophils % 0.2 % (0.0-0.8); Hematocrit 23.7 VOL% (42.0-52.0); Immature Granulocytes % 1.2 %; Immature Granulocytes Absolute 0.05 #; Lymphocytes # 0.7 10*3/uL (1.4-4.0); Mean Corpuscular HGB Conc 33.8 GM/DL (32-36); Mean Corpuscular Hemoglobin 31 PG (27-34); Mean Corpuscular Volume 90.5 FL (87-102); Mean Platelet Volume 10.7 FL (9.6-12.0); Monocytes # 0.4 10*3/uL (0.11-0.8); Monocytes % 8.8 % (1.7-12.7); Neutrophils # 3.1 10*3/uL (1.4-7.4); Neutrophils % 73.8 % (38.7-73.9); Platelet Count 134 T/CUMM (130-400); Red Blood Count 2.62 MC/CUMM (3.8-5.5); Red Cell Distribution Width 16.8 % (9.3-17.3); White Blood Count 4.2 T/CUMM (4-12)
[2018-03-13 05:16] LABS: Albumin 1.7 G/DL (3.4-5.0); Bilirubin,Total 0.8 MG/DL (0.2-1.0); Calcium 7.3 MG/DL (8.5-10.1); Osmolality,Calculated 303.5 MOS/KG (273-304); Potassium 4.4 MMOL/L (3.5-5.1); Total Protein 5.7 G/DL (6.4-8.3)
[2018-03-13] MEDS ORDERED: DEXTROSE 50% 25 GM/50 ML VIAL IV ONE (05:25)
[2018-03-13 05:27] LABS: Calcium 7.4 MG/DL (8.5-10.1); Osmolality,Calculated 304.5 MOS/KG (273-304); Potassium 4.3 MMOL/L (3.5-5.1)
[2018-03-13 05:32] LABS: Band Neutrophils 3 % (0-10); Lymphocytes 26 % (20-55); Platelet Estimate Normal; Segmented Neutrophils 65 % (50-85); Total Cells Counted 100
[2018-03-13] MEDS ORDERED: DEXTROSE 50% 25 GM/50 ML VIAL IV PRN (05:32)
[2018-03-13] MEDS: LEVOTHYROXINE 100 MCG TABLET PO SCH (06:24)
[2018-03-13] MEDS ORDERED: SODIUM CHLORIDE 0.9% 500 ML IV ONE (08:27)
[2018-03-13] MEDS ORDERED: SODIUM CHLORIDE 0.9% 1,000 ML IV PRN (08:27)
[2018-03-13] MEDS: INSULIN REGULAR 100 UNIT/ML SUBCUT SCH ×4 (08:38→22:16)
[2018-03-13] MEDS: LACTOBACILLUS RHAMNOSUS GG CAPSULE PO SCH (09:42)
[2018-03-13] MEDS: FERROUS SULFATE 325 MG TABLET PO SCH ×3 (09:42→22:09)
[2018-03-13] MEDS: ASPIRIN EC 81 MG TABLET PO SCH (09:42)
[2018-03-13] MEDS: PANTOPRAZOLE 40 MG TABLET PO SCH (09:42)
[2018-03-13] MEDS: miSOPROStol 200 MCG TABLET PO SCH ×4 (09:42→22:09)
[2018-03-13] MEDS: TAMSULOSIN 0.4 MG CAPSULE PO SCH ×2 (09:42→22:09)
[2018-03-13] MEDS: MULTIVITAMIN (CENTRUM) TABLET PO SCH (09:42)
[2018-03-13] MEDS: POLYETHYLENE GLYCOL POWDER 17 GM PACK PO SCH ×2 (09:42→09:55)
[2018-03-13] MEDS: NOREPINEPHRINE 8 MG in SODIUM CHLORIDE 0.9% 242 ML IV PRN (12:09)
[2018-03-13] MEDS: ACETAMINOPHEN 325 MG TABLET PO PRN (19:23)
[2018-03-13 20:21] LABS: Hematocrit 31.3 VOL% (42.0-52.0); Hemoglobin 10.4 GM/DL (14.0-18.0)
[2018-03-13] MEDS: GABAPENTIN 100 MG CAPSULE PO SCH (22:09)
[2018-03-13] MEDS: INSULIN GLARGINE 100 UNIT/ML SUBCUT SCH (22:15)
[2018-03-14] MEDS: PIPERACILLIN/TAZOBACTAM 3,375 MG in SODIUM CHLORIDE 0.9% 100 ML IV SCH ×2 (01:26→16:03)
[2018-03-14 02:52] LABS: Hemoglobin 8.6 GM/DL (14.0-18.0); Immature Granulocytes % 1.9 %; Lymphocytes # 1.4 10*3/uL (1.4-4.0); Lymphocytes % 26.1 % (21.2-54.2); Mean Corpuscular HGB Conc 33.1 GM/DL (32-36); Mean Corpuscular Hemoglobin 30 PG (27-34); Mean Corpuscular Volume 91.2 FL (87-102); Mean Platelet Volume 10.3 FL (9.6-12.0); Monocytes # 0.5 10*3/uL (0.11-0.8); Monocytes % 9.7 % (1.7-12.7); Neutrophils # 3.4 10*3/uL (1.4-7.4); Neutrophils % 62.3 % (38.7-73.9); Platelet Count 138 T/CUMM (130-400); Red Blood Count 2.85 MC/CUMM (3.8-5.5); Red Cell Distribution Width 16.3 % (9.3-17.3); White Blood Count 5.4 T/CUMM (4-12)
[2018-03-14 03:32] LABS: Osmolality,Calculated 302.4 MOS/KG (273-304); Potassium 3.6 MMOL/L (3.5-5.1)
[2018-03-14] MEDS: LEVOTHYROXINE 100 MCG TABLET PO SCH (05:14)
[2018-03-14] MEDS: SODIUM CHLORIDE 0.9% 1,000 ML IV SCH ×3 (05:14→16:07)
[2018-03-14] MEDS: NOREPINEPHRINE 8 MG in SODIUM CHLORIDE 0.9% 242 ML IV PRN (05:18)
[2018-03-14] MEDS: miSOPROStol 200 MCG TABLET PO SCH ×5 (08:45→23:46)
[2018-03-14] MEDS: PANTOPRAZOLE 40 MG TABLET PO SCH (08:45)
[2018-03-14] MEDS: LACTOBACILLUS RHAMNOSUS GG CAPSULE PO SCH (08:45)
[2018-03-14] MEDS: MULTIVITAMIN (CENTRUM) TABLET PO SCH (08:46)
[2018-03-14] MEDS: INSULIN REGULAR 100 UNIT/ML SUBCUT SCH ×4 (08:46→23:46)
[2018-03-14] MEDS: ASPIRIN EC 81 MG TABLET PO SCH (08:46)
[2018-03-14] MEDS: TAMSULOSIN 0.4 MG CAPSULE PO SCH ×2 (08:46→21:09)
[2018-03-14] MEDS: FERROUS SULFATE 325 MG TABLET PO SCH ×3 (08:46→21:09)
[2018-03-14] MEDS ORDERED: MAGNESIUM SULF RIDER 2 GM in PREMIX 1 EACH IV ONE (10:30)
[2018-03-14] MEDS: ACETAMINOPHEN 325 MG TABLET PO PRN (12:57)
[2018-03-14] MEDS: POLYETHYLENE GLYCOL POWDER 17 GM PACK PO SCH (12:58)
[2018-03-14] MEDS: SKIN HEALING OINT (AQUAPHOR) 50 GM TUBE TOP SCH (12:58)
[2018-03-14] MEDS: GABAPENTIN 100 MG CAPSULE PO SCH (21:09)
[2018-03-15] MEDS: PIPERACILLIN/TAZOBACTAM 3,375 MG in SODIUM CHLORIDE 0.9% 100 ML IV SCH (01:42)
[2018-03-15] MEDS: ACETAMINOPHEN 325 MG TABLET PO PRN (01:42)
[2018-03-15 05:11] LABS: Hematocrit 25.4 VOL% (42.0-52.0); Hemoglobin 8.4 GM/DL (14.0-18.0); Immature Granulocytes % 2.3 %; Immature Granulocytes Absolute 0.14 #; Lymphocytes # 1.2 10*3/uL (1.4-4.0); Lymphocytes % 20.3 % (21.2-54.2); Mean Corpuscular HGB Conc 33.1 GM/DL (32-36); Mean Corpuscular Hemoglobin 31 PG (27-34); Mean Platelet Volume 9.9 FL (9.6-12.0); Monocytes # 0.5 10*3/uL (0.11-0.8); Monocytes % 7.7 % (1.7-12.7); Neutrophils # 4.3 10*3/uL (1.4-7.4); Neutrophils % 69.7 % (38.7-73.9); Platelet Count 143 T/CUMM (130-400); Red Blood Count 2.73 MC/CUMM (3.8-5.5); Red Cell Distribution Width 16.3 % (9.3-17.3); White Blood Count 6.1 T/CUMM (4-12)
[2018-03-15 05:38] LABS: Calcium 7.2 MG/DL (8.5-10.1); Osmolality,Calculated 295.4 MOS/KG (273-304); Potassium 3.6 MMOL/L (3.5-5.1)
[2018-03-15 05:43] LABS: Hypochromasia 1+; Ovalocytes Slight; Platelet Estimate Normal
[2018-03-15] MEDS: LEVOTHYROXINE 100 MCG TABLET PO SCH (07:09)
[2018-03-15] MEDS ORDERED: INFLUENZA VIRUS VACCINE 0.5 ML SYRINGE IM ONE (09:00)
[2018-03-15] MEDS ORDERED: PNEUMOCOCCAL VACCINE (13 VALENT) 0.5 ML SYRINGE IM ONE (09:00)
[2018-03-15] MEDS: INSULIN REGULAR 100 UNIT/ML SUBCUT SCH ×4 (09:01→22:08)
[2018-03-15] MEDS: FERROUS SULFATE 325 MG TABLET PO SCH ×3 (09:19→21:50)
[2018-03-15] MEDS: MULTIVITAMIN (CENTRUM) TABLET PO SCH (09:19)
[2018-03-15] MEDS: miSOPROStol 200 MCG TABLET PO SCH ×4 (09:19→21:50)
[2018-03-15] MEDS: ASPIRIN EC 81 MG TABLET PO SCH (09:19)
[2018-03-15] MEDS: ERTAPENEM 1,000 MG in SODIUM CHLORIDE 0.9% 100 ML IV SCH (09:19)
[2018-03-15] MEDS: LACTOBACILLUS RHAMNOSUS GG CAPSULE PO SCH (09:19)
[2018-03-15] MEDS: POLYETHYLENE GLYCOL POWDER 17 GM PACK PO SCH (09:19)
[2018-03-15] MEDS: TAMSULOSIN 0.4 MG CAPSULE PO SCH ×2 (09:19→21:50)
[2018-03-15] MEDS: PANTOPRAZOLE 40 MG TABLET PO SCH (09:19)
[2018-03-15] MEDS: SODIUM CHLORIDE 0.9% 1,000 ML IV SCH ×3 (13:17→18:38)
[2018-03-15] MEDS: SKIN HEALING OINT (AQUAPHOR) 50 GM TUBE TOP SCH (16:38)
[2018-03-15] MEDS: GABAPENTIN 100 MG CAPSULE PO SCH (21:49)
[2018-03-16] MEDS: SODIUM CHLORIDE 0.9% 1,000 ML IV SCH ×2 (04:37→15:37)
[2018-03-16] MEDS: LEVOTHYROXINE 100 MCG TABLET PO SCH (06:21)
[2018-03-16] MEDS: INSULIN REGULAR 100 UNIT/ML SUBCUT SCH ×4 (07:57→21:37)
[2018-03-16] MEDS: MULTIVITAMIN (CENTRUM) TABLET PO SCH (08:33)
[2018-03-16] MEDS: LACTOBACILLUS RHAMNOSUS GG CAPSULE PO SCH (08:33)
[2018-03-16] MEDS: TAMSULOSIN 0.4 MG CAPSULE PO SCH ×2 (08:33→21:36)
[2018-03-16] MEDS: FERROUS SULFATE 325 MG TABLET PO SCH ×3 (08:33→21:36)
[2018-03-16] MEDS: miSOPROStol 200 MCG TABLET PO SCH ×4 (08:33→21:37)
[2018-03-16] MEDS: ASPIRIN EC 81 MG TABLET PO SCH (08:33)
[2018-03-16] MEDS: PANTOPRAZOLE 40 MG TABLET PO SCH (08:33)
[2018-03-16] MEDS: ERTAPENEM 1,000 MG in SODIUM CHLORIDE 0.9% 100 ML IV SCH (08:34)
[2018-03-16] MEDS: POLYETHYLENE GLYCOL POWDER 17 GM PACK PO SCH (08:34)
[2018-03-16] MEDS: SKIN HEALING OINT (AQUAPHOR) 50 GM TUBE TOP SCH (11:33)
[2018-03-16] MEDS: GABAPENTIN 100 MG CAPSULE PO SCH (21:36)
[2018-03-16] MEDS: ACETAMINOPHEN 325 MG TABLET PO PRN (21:36)
[2018-03-17] MEDS: SODIUM CHLORIDE 0.9% 1,000 ML IV SCH ×3 (00:46→23:36)
[2018-03-17] MEDS: LEVOTHYROXINE 100 MCG TABLET PO SCH (06:20)
[2018-03-17 06:57] LABS: Calcium 7.2 MG/DL (8.5-10.1); Osmolality,Calculated 296.8 MOS/KG (273-304)
[2018-03-17 08:06] LABS: Basophils % 0.1 % (0.0-0.8); Hemoglobin 8.5 GM/DL (14.0-18.0); Immature Granulocytes % 4.7 %; Immature Granulocytes Absolute 0.36 #; Lymphocytes # 1.7 10*3/uL (1.4-4.0); Lymphocytes % 22.2 % (21.2-54.2); Mean Corpuscular HGB Conc 32.7 GM/DL (32-36); Mean Corpuscular Hemoglobin 31 PG (27-34); Mean Corpuscular Volume 94.5 FL (87-102); Mean Platelet Volume 9.5 FL (9.6-12.0); Monocytes # 0.6 10*3/uL (0.11-0.8); Monocytes % 8.3 % (1.7-12.7); Neutrophils % 64.7 % (38.7-73.9); Platelet Count 198 T/CUMM (130-400); Red Blood Count 2.75 MC/CUMM (3.8-5.5); Red Cell Distribution Width 16.2 % (9.3-17.3); White Blood Count 7.7 T/CUMM (4-12)
[2018-03-17] MEDS: INSULIN REGULAR 100 UNIT/ML SUBCUT SCH ×4 (08:52→21:51)
[2018-03-17] MEDS: FERROUS SULFATE 325 MG TABLET PO SCH ×3 (10:14→21:02)
[2018-03-17] MEDS: ASPIRIN EC 81 MG TABLET PO SCH (10:14)
[2018-03-17] MEDS: miSOPROStol 200 MCG TABLET PO SCH ×4 (10:14→21:02)
[2018-03-17] MEDS: LACTOBACILLUS RHAMNOSUS GG CAPSULE PO SCH (10:14)
[2018-03-17] MEDS: MULTIVITAMIN (CENTRUM) TABLET PO SCH (10:14)
[2018-03-17] MEDS: TAMSULOSIN 0.4 MG CAPSULE PO SCH ×2 (10:14→21:01)
[2018-03-17] MEDS: PANTOPRAZOLE 40 MG TABLET PO SCH (10:14)
[2018-03-17] MEDS: POLYETHYLENE GLYCOL POWDER 17 GM PACK PO SCH (10:15)
[2018-03-17] MEDS: ERTAPENEM 1,000 MG in SODIUM CHLORIDE 0.9% 100 ML IV SCH (10:15)
[2018-03-17] MEDS: SKIN HEALING OINT (AQUAPHOR) 50 GM TUBE TOP SCH (14:25)
[2018-03-17] MEDS: GABAPENTIN 100 MG CAPSULE PO SCH (21:02)
[2018-03-17] MEDS: ACETAMINOPHEN 325 MG TABLET PO PRN (21:03)
[2018-03-18] MEDS: ACETAMINOPHEN 325 MG TABLET PO PRN ×2 (02:01→21:14)
[2018-03-18] MEDS: LEVOTHYROXINE 100 MCG TABLET PO SCH (04:59)
[2018-03-18] MEDS: LACTOBACILLUS RHAMNOSUS GG CAPSULE PO SCH (09:00)
[2018-03-18] MEDS: PANTOPRAZOLE 40 MG TABLET PO SCH (09:01)
[2018-03-18] MEDS: TAMSULOSIN 0.4 MG CAPSULE PO SCH ×2 (09:01→21:14)
[2018-03-18] MEDS: ASPIRIN EC 81 MG TABLET PO SCH (09:01)
[2018-03-18] MEDS: miSOPROStol 200 MCG TABLET PO SCH ×4 (09:01→21:14)
[2018-03-18] MEDS: SKIN HEALING OINT (AQUAPHOR) 50 GM TUBE TOP SCH (09:01)
[2018-03-18] MEDS: MULTIVITAMIN (CENTRUM) TABLET PO SCH (09:01)
[2018-03-18] MEDS: SODIUM CHLORIDE 0.9% 1,000 ML IV SCH ×2 (10:00→21:13)
[2018-03-18] MEDS: INSULIN REGULAR 100 UNIT/ML SUBCUT SCH ×4 (11:39→20:48)
[2018-03-18] MEDS: FERROUS SULFATE 325 MG TABLET PO SCH ×3 (14:03→21:15)
[2018-03-18] MEDS: ERTAPENEM 1,000 MG in SODIUM CHLORIDE 0.9% 100 ML IV SCH (14:04)
[2018-03-18] MEDS: POLYETHYLENE GLYCOL POWDER 17 GM PACK PO SCH (14:05)
[2018-03-18] MEDS: GABAPENTIN 100 MG CAPSULE PO SCH (21:14)
[2018-03-19] MEDS: SODIUM CHLORIDE 0.9% 1,000 ML IV SCH ×2 (06:44→19:13)
[2018-03-19] MEDS: LEVOTHYROXINE 100 MCG TABLET PO SCH (06:44)
[2018-03-19 06:49] LABS: Calcium 7.4 MG/DL (8.5-10.1); Potassium 3.8 MMOL/L (3.5-5.1)
[2018-03-19] MEDS: INSULIN REGULAR 100 UNIT/ML SUBCUT SCH ×4 (08:30→21:38)
[2018-03-19] MEDS: PANTOPRAZOLE 40 MG TABLET PO SCH (09:51)
[2018-03-19] MEDS: MULTIVITAMIN (CENTRUM) TABLET PO SCH (09:51)
[2018-03-19] MEDS: TAMSULOSIN 0.4 MG CAPSULE PO SCH ×2 (09:51→21:40)
[2018-03-19] MEDS: SKIN HEALING OINT (AQUAPHOR) 50 GM TUBE TOP SCH (09:51)
[2018-03-19] MEDS: miSOPROStol 200 MCG TABLET PO SCH ×4 (09:51→21:40)
[2018-03-19] MEDS: ERTAPENEM 1,000 MG in SODIUM CHLORIDE 0.9% 100 ML IV SCH (09:51)
[2018-03-19] MEDS: FERROUS SULFATE 325 MG TABLET PO SCH ×3 (09:51→21:40)
[2018-03-19] MEDS: ASPIRIN EC 81 MG TABLET PO SCH (09:51)
[2018-03-19] MEDS: LACTOBACILLUS RHAMNOSUS GG CAPSULE PO SCH (09:51)
[2018-03-19] MEDS: POLYETHYLENE GLYCOL POWDER 17 GM PACK PO SCH (09:52)
[2018-03-19] MEDS ORDERED: MAGNESIUM SULF RIDER 2 GM in PREMIX 1 EACH IV ONE (10:00)
[2018-03-19] MEDS: GABAPENTIN 100 MG CAPSULE PO SCH (21:40)
[2018-03-20] MEDS: LEVOTHYROXINE 100 MCG TABLET PO SCH (05:16)
[2018-03-20] MEDS: SODIUM CHLORIDE 0.9% 1,000 ML IV SCH (05:17)
[2018-03-20] MEDS: INSULIN REGULAR 100 UNIT/ML SUBCUT SCH ×2 (09:49→11:53)
[2018-03-20] MEDS: FERROUS SULFATE 325 MG TABLET PO SCH (09:55)
[2018-03-20] MEDS: TAMSULOSIN 0.4 MG CAPSULE PO SCH (09:55)
[2018-03-20] MEDS: POLYETHYLENE GLYCOL POWDER 17 GM PACK PO SCH (09:55)
[2018-03-20] MEDS: PANTOPRAZOLE 40 MG TABLET PO SCH (09:55)
[2018-03-20] MEDS: ASPIRIN EC 81 MG TABLET PO SCH (09:55)
[2018-03-20] MEDS: LACTOBACILLUS RHAMNOSUS GG CAPSULE PO SCH (09:55)
[2018-03-20] MEDS: MULTIVITAMIN (CENTRUM) TABLET PO SCH (09:55)
[2018-03-20] MEDS: SKIN HEALING OINT (AQUAPHOR) 50 GM TUBE TOP SCH (09:55)
[2018-03-20] MEDS: ERTAPENEM 1,000 MG in SODIUM CHLORIDE 0.9% 100 ML IV SCH (09:55)
[2018-03-20] MEDS: miSOPROStol 200 MCG TABLET PO SCH ×2 (09:55→12:33)
[2018-03-20 12:00] VITALS: BP 124/65
== END 2018-03-20 12:58 ==
LOC: N.ED 11:52 → SUATTDRO 14:13 → N.EDINP 14:13 → N.ICU 14:42 → N.2E 03-14 18:43
PROVIDERS: ADMIT Internal Medicine; ATTEND Internal Medicine

== ENCOUNTER 2018-04-08 11:43 | Inpatient (IN) ==
[2018-04-08] MEDS ORDERED: SODIUM CHLORIDE 0.9% 500 ML IV STA (12:16)
[2018-04-08] MEDS ORDERED: PANTOPRAZOLE 40 MG VIAL IV STA (12:16)
[2018-04-08] MEDS ORDERED: ONDANSETRON 4 MG/2 ML VIAL IV STA (12:16)
[2018-04-08] MEDS ORDERED: hydrALAZINE 20 MG/1 ML VIAL ONE (13:28)
[2018-04-08] MEDS ORDERED: hydrALAZINE 20 MG/1 ML VIAL IV STA (13:28)
[2018-04-08 13:36] LABS: Basophils % 0.5 % (0.0-0.8); Eosinophils % 0.3 % (0.00-10.9); Hematocrit 29.3 VOL% (42.0-52.0); Hemoglobin 9.7 GM/DL (14.0-18.0); Immature Granulocytes % 0.9 %; Immature Granulocytes Absolute 0.05 #; Lymphocytes # 2.1 10*3/uL (1.4-4.0); Lymphocytes % 36.9 % (21.2-54.2); Mean Corpuscular HGB Conc 33.1 GM/DL (32-36); Mean Corpuscular Hemoglobin 31 PG (27-34); Mean Corpuscular Volume 93.3 FL (87-102); Mean Platelet Volume 10.1 FL (9.6-12.0); Monocytes # 0.9 10*3/uL (0.11-0.8); Monocytes % 14.7 % (1.7-12.7); Neutrophils # 2.7 10*3/uL (1.4-7.4); Neutrophils % 46.7 % (38.7-73.9); Platelet Count 180 T/CUMM (130-400); Red Blood Count 3.14 MC/CUMM (3.8-5.5); Red Cell Distribution Width 15.9 % (9.3-17.3); White Blood Count 5.8 T/CUMM (4-12)
[2018-04-08 13:54] LABS: Alanine Aminotransferase 12 U/L (16-61); Albumin 2.5 G/DL (3.4-5.0); Alkaline Phosphatase 101 U/L (45-117); Aspartate Amino Transferase 14 U/L (0-37); Bilirubin,Total < 0.39 MG/DL (0.2-1.0); Blood Urea Nitrogen 73 MG/DL (7-18); Calcium 8.6 MG/DL (8.5-10.1); Glucose 137 MG/DL (74-106); Osmolality,Calculated 311.7 MOS/KG (273-304); Potassium 3.2 MMOL/L (3.5-5.1); Sodium 145 MMOL/L (136-145); Total Protein 6.5 G/DL (6.4-8.3)
[2018-04-08 14:00] LABS: INR 1.1; PT Patient Result 11.6 SECS
[2018-04-08] MEDS ORDERED: ACETAMINOPHEN 325 MG TABLET PO PRN (14:38)
[2018-04-08] MEDS ORDERED: LACTULOSE 20 GM/30 ML UDCUP PO PRN (14:38)
[2018-04-08] MEDS ORDERED: MORPHINE 4 MG/1 ML VIAL IV PRN (14:38)
[2018-04-08] MEDS ORDERED: PROMETHAZINE 25 MG TABLET PO PRN (14:45)
[2018-04-08] MEDS ORDERED: GLUCAGON 1 MG VIAL IM PRN (14:49)
[2018-04-08] MEDS ORDERED: DEXTROSE 50% 25 GM/50 ML VIAL IV PRN (14:49)
[2018-04-08 15:02] LABS: Apearance,Urine Slightly Hazy (Clear); Bacteria,Urine Occasional /HPF (Few); Bilirubin,Urine Negative (Negative); Blood, Urine Negative (Negative); Glucose,Urine (UA) Negative (Negative); Hyaline Casts,Urine 1 /LPF (0-3); Ketones,Urine Negative (Negative); Nitrite,Urine Negative (Negative); Protein,Urine 100 MG/DL; RBC,Urine 4 /HPF (0-4); Squamous Epithelial Cell,Urine Occasional /HPF (0-10); Urine Color Yellow (Yellow); Urine Specific Gravity 1.009 (1.001-1.035); Urine Urobilinogen < 2.0 EU/DL (0.2-1.0); WBC,Urine 80 /HPF (0-6)
[2018-04-08] MEDS ORDERED: POTASSIUM CHLORIDE 20 MEQ TABLET PO ONE (15:18)
[2018-04-08] MEDS: SODIUM CHLORIDE 0.9% 1,000 ML IV SCH (17:11)
[2018-04-08] MEDS: INSULIN LISPRO 100 UNIT/ML SUBCUT SCH ×2 (17:17→22:31)
[2018-04-08] MEDS: miSOPROStol 200 MCG TABLET PO SCH ×2 (17:37→21:10)
[2018-04-08 17:39] LABS: Apearance,Urine Slightly Hazy (Clear); Bacteria,Urine Occasional /HPF (Few); Bilirubin,Urine Negative (Negative); Blood, Urine Negative (Negative); Glucose,Urine (UA) Negative (Negative); Hyaline Casts,Urine 1 /LPF (0-3); Ketones,Urine Negative (Negative); Mucus,Urine Occasional /LPF (Occasional); Nitrite,Urine Negative (Negative); Protein,Urine 100 MG/DL; RBC,Urine 3 /HPF (0-4); Squamous Epithelial Cell,Urine Occasional /HPF (0-10); Urine Color Yellow (Yellow); Urine Specific Gravity 1.008 (1.001-1.035); Urine Urobilinogen < 2.0 EU/DL (0.2-1.0); WBC,Urine 179 /HPF (0-6)
[2018-04-08] MEDS: MIRTAZAPINE 15 MG TABLET PO SCH (21:11)
[2018-04-08] MEDS: TAMSULOSIN 0.4 MG CAPSULE PO SCH (21:11)
[2018-04-08] MEDS: CARVEDILOL 12.5 MG TABLET PO SCH (21:11)
[2018-04-09] MEDS: INSULIN GLARGINE 100 UNIT/ML SUBCUT SCH ×2 (01:07→21:28)
[2018-04-09] MEDS: SODIUM CHLORIDE 0.9% 1,000 ML IV SCH ×2 (02:10→13:39)
[2018-04-09 05:24] LABS: Basophils % 0.7 % (0.0-0.8); Hemoglobin 8.4 GM/DL (14.0-18.0); Immature Granulocytes % 0.6 %; Immature Granulocytes Absolute 0.03 #; Lymphocytes # 2.8 10*3/uL (1.4-4.0); Lymphocytes % 51.1 % (21.2-54.2); Mean Corpuscular HGB Conc 32.3 GM/DL (32-36); Mean Corpuscular Hemoglobin 30 PG (27-34); Mean Corpuscular Volume 94.2 FL (87-102); Mean Platelet Volume 10.2 FL (9.6-12.0); Monocytes # 0.8 10*3/uL (0.11-0.8); Monocytes % 14.5 % (1.7-12.7); Neutrophils # 1.8 10*3/uL (1.4-7.4); Neutrophils % 33.1 % (38.7-73.9); Platelet Count 184 T/CUMM (130-400); Red Blood Count 2.76 MC/CUMM (3.8-5.5); White Blood Count 5.4 T/CUMM (4-12)
[2018-04-09 05:48] LABS: Atypical Lymphocytes Few; Eosinophils 2 % (0-10); Hypochromasia 1+; Lymphocytes 46 % (20-55); Segmented Neutrophils 38 % (50-85); Total Cells Counted 100
[2018-04-09 05:49] LABS: Microcytosis 1+; Ovalocytes Slight; Platelet Estimate Adequate
[2018-04-09 05:54] LABS: Bilirubin,Total 0.6 MG/DL (0.2-1.0); Calcium 7.7 MG/DL (8.5-10.1); Osmolality,Calculated 305.7 MOS/KG (273-304); Potassium 3.7 MMOL/L (3.5-5.1); Total Protein 5.6 G/DL (6.4-8.3)
[2018-04-09] MEDS: LEVOTHYROXINE 100 MCG TABLET PO SCH (06:04)
[2018-04-09] MEDS: INSULIN LISPRO 100 UNIT/ML SUBCUT SCH ×4 (07:36→21:28)
[2018-04-09] MEDS: miSOPROStol 200 MCG TABLET PO SCH ×4 (09:14→21:28)
[2018-04-09] MEDS: POLYETHYLENE GLYCOL POWDER 17 GM PACK PO SCH (09:14)
[2018-04-09] MEDS: MULTIVITAMIN (CENTRUM) TABLET PO SCH (09:14)
[2018-04-09] MEDS: LACTOBACILLUS ACIDOPHILUS/BULGARICUS CAPLET PO SCH (09:14)
[2018-04-09] MEDS: ASPIRIN EC 81 MG TABLET PO SCH (09:14)
[2018-04-09] MEDS: PANTOPRAZOLE 40 MG TABLET PO SCH (09:14)
[2018-04-09] MEDS: TAMSULOSIN 0.4 MG CAPSULE PO SCH ×2 (09:14→21:28)
[2018-04-09] MEDS: CARVEDILOL 12.5 MG TABLET PO SCH ×2 (09:14→21:28)
[2018-04-09] MEDS: ERTAPENEM 500 MG in SODIUM CHLORIDE 0.9% 100 ML IV SCH (09:54)
[2018-04-09] MEDS: SKIN HEALING OINT (AQUAPHOR) 50 GM TUBE TOP SCH (09:54)
[2018-04-09] MEDS: SODIUM HYPOCHLORITE 0.25% IRRIG 473 ML BOTTLE TOP SCH (11:08)
[2018-04-09] MEDS: ONDANSETRON 4 MG/2 ML VIAL IV PRN (18:28)
[2018-04-09] MEDS ORDERED: LOPERAMIDE 2 MG CAPSULE PO PRN (19:01)
[2018-04-09] MEDS: MIRTAZAPINE 15 MG TABLET PO SCH (21:28)
[2018-04-10] MEDS: SODIUM CHLORIDE 0.9% 1,000 ML IV SCH ×2 (00:23→13:42)
[2018-04-10 05:58] LABS: Basophils % 0.6 % (0.0-0.8); Hematocrit 26.6 VOL% (42.0-52.0); Hemoglobin 8.3 GM/DL (14.0-18.0); Immature Granulocytes Absolute 0.05 #; Lymphocytes # 2.2 10*3/uL (1.4-4.0); Mean Corpuscular HGB Conc 31.2 GM/DL (32-36); Mean Corpuscular Hemoglobin 30 PG (27-34); Mean Platelet Volume 9.9 FL (9.6-12.0); Monocytes # 0.7 10*3/uL (0.11-0.8); Monocytes % 13.3 % (1.7-12.7); Neutrophils # 2.1 10*3/uL (1.4-7.4); Neutrophils % 41.1 % (38.7-73.9); Platelet Count 172 T/CUMM (130-400); Red Cell Distribution Width 15.8 % (9.3-17.3)
[2018-04-10] MEDS: LEVOTHYROXINE 100 MCG TABLET PO SCH (06:00)
[2018-04-10 06:51] LABS: Calcium 7.5 MG/DL (8.5-10.1); Osmolality,Calculated 301.7 MOS/KG (273-304); Potassium 3.8 MMOL/L (3.5-5.1)
[2018-04-10] MEDS: INSULIN LISPRO 100 UNIT/ML SUBCUT SCH ×2 (07:51→11:49)
[2018-04-10] MEDS: MULTIVITAMIN (CENTRUM) TABLET PO SCH (08:54)
[2018-04-10] MEDS: TAMSULOSIN 0.4 MG CAPSULE PO SCH (08:54)
[2018-04-10] MEDS: PANTOPRAZOLE 40 MG TABLET PO SCH (08:54)
[2018-04-10] MEDS: CARVEDILOL 12.5 MG TABLET PO SCH (08:54)
[2018-04-10] MEDS: LACTOBACILLUS ACIDOPHILUS/BULGARICUS CAPLET PO SCH (08:54)
[2018-04-10] MEDS: ASPIRIN EC 81 MG TABLET PO SCH (08:55)
[2018-04-10] MEDS: miSOPROStol 200 MCG TABLET PO SCH ×2 (08:55→13:46)
[2018-04-10] MEDS: ERTAPENEM 500 MG in SODIUM CHLORIDE 0.9% 100 ML IV SCH (08:55)
[2018-04-10] MEDS: SODIUM HYPOCHLORITE 0.25% IRRIG 473 ML BOTTLE TOP SCH (08:55)
[2018-04-10] MEDS: POLYETHYLENE GLYCOL POWDER 17 GM PACK PO SCH (08:55)
[2018-04-10] MEDS: SKIN HEALING OINT (AQUAPHOR) 50 GM TUBE TOP SCH (08:55)
[2018-04-10] MEDS ORDERED: MAGNESIUM SULF RIDER 2 GM in PREMIX 1 EACH IV ONE (09:30)
[2018-04-10] MEDS: ONDANSETRON 4 MG/2 ML VIAL IV PRN (09:48)
[2018-04-10 12:13] VITALS: BP 167/88
== END 2018-04-10 13:54 | DRG 682 ==
LOC: EDUNIT# → EDBD → N.ED 11:43 → N.EDINP 14:38 → N.2E 15:55
PROVIDERS: ADMIT Internal Medicine; ATTEND Internal Medicine

== ENCOUNTER 2018-05-16 11:02 | Inpatient (IN) ==
[2018-05-16 11:52] LABS: Basophils % 0.2 % (0.0-0.8); Hematocrit 24.7 VOL% (42.0-52.0); Hemoglobin 8.1 GM/DL (14.0-18.0); Immature Granulocytes Absolute 0.04 #; Lymphocytes # 0.7 10*3/uL (1.4-4.0); Mean Corpuscular HGB Conc 32.8 GM/DL (32-36); Mean Corpuscular Hemoglobin 32 PG (27-34); Mean Corpuscular Volume 96.5 FL (87-102); Mean Platelet Volume 11.1 FL (9.6-12.0); Monocytes # 0.3 10*3/uL (0.11-0.8); Monocytes % 8.4 % (1.7-12.7); Neutrophils % 73.4 % (38.7-73.9); Platelet Count 153 T/CUMM (130-400); Red Blood Count 2.56 MC/CUMM (3.8-5.5); Red Cell Distribution Width 14.5 % (9.3-17.3); White Blood Count 4.1 T/CUMM (4-12)
[2018-05-16 12:13] LABS: Lactic Acid 1.8 MMOL/L (0.4-2.0)
[2018-05-16 12:25] LABS: Anisocytosis 1+; Band Neutrophils 24 % (0-10); Lymphocytes 16 % (20-55); Platelet Estimate Normal; Poikilocytosis Slight; Segmented Neutrophils 52 % (50-85); Total Cells Counted 100
[2018-05-16 12:26] LABS: Macrocytosis 1+; Tear Drop Cells Few
[2018-05-16 12:27] LABS: Albumin 2.2 G/DL (3.4-5.0); Bilirubin,Total 0.7 MG/DL (0.2-1.0); Calcium 7.7 MG/DL (8.5-10.1); Total Protein 6.8 G/DL (6.4-8.3)
[2018-05-16] MEDS ORDERED: SODIUM CHLORIDE 0.9% 1,000 ML IV STA (12:48)
[2018-05-16] MEDS ORDERED: diphenhydrAMINE CAP 25 MG CAPSULE PO PRN (14:58)
[2018-05-16] MEDS ORDERED: ONDANSETRON 4 MG/2 ML VIAL IV PRN (14:58)
[2018-05-16] MEDS ORDERED: NITROGLYCERIN SL 0.4 MG TABLET SL PRN (15:02)
[2018-05-16] MEDS ORDERED: PROMETHAZINE 25 MG TABLET PO PRN (15:02)
[2018-05-16] MEDS ORDERED: GLUCAGON 1 MG VIAL IM PRN (15:22)
[2018-05-16] MEDS ORDERED: DEXTROSE 50% 25 GM/50 ML VIAL IV PRN (15:22)
[2018-05-16] MEDS: INSULIN LISPRO 100 UNIT/ML SUBCUT SCH (21:38)
[2018-05-16] MEDS: MIRTAZAPINE 15 MG TABLET PO SCH (21:41)
[2018-05-16] MEDS: TAMSULOSIN 0.4 MG CAPSULE PO SCH (21:41)
[2018-05-16] MEDS: DOCUSATE SODIUM 100 MG CAPSULE PO SCH (21:41)
[2018-05-16] MEDS: FERROUS SULFATE 325 MG TABLET PO SCH (21:41)
[2018-05-16] MEDS: miSOPROStol 200 MCG TABLET PO SCH ×2 (21:42)
[2018-05-16] MEDS: CARVEDILOL 12.5 MG TABLET PO SCH (21:42)
[2018-05-16] MEDS: NITROFURANTOIN MACROCRYSTALS 100 MG CAPSULE PO SCH (21:42)
[2018-05-16] MEDS: SODIUM CHLORIDE 0.9% 1,000 ML IV SCH (21:43)
[2018-05-16] MEDS: ENOXAPARIN 30 MG/0.3 ML SYRINGE SUBCUT SCH (21:44)
[2018-05-16] MEDS: PANTOPRAZOLE 40 MG TABLET PO SCH (21:45)
[2018-05-16] MEDS: GABAPENTIN 100 MG CAPSULE PO SCH (21:46)
[2018-05-17] MEDS: SODIUM CHLORIDE 0.9% 1,000 ML IV SCH ×3 (03:38→21:15)
[2018-05-17 05:16] LABS: Albumin 1.8 G/DL (3.4-5.0); Bilirubin,Total 2.3 MG/DL (0.2-1.0); Calcium 7.2 MG/DL (8.5-10.1); Osmolality,Calculated 308.4 MOS/KG (273-304); Potassium 3.7 MMOL/L (3.5-5.1); Total Protein 5.8 G/DL (6.4-8.3)
[2018-05-17 06:41] LABS: Basophils % 0.3 % (0.0-0.8); Hematocrit 22.9 VOL% (42.0-52.0); Immature Granulocytes % 1.2 %; Immature Granulocytes Absolute 0.04 #; Lymphocytes # 0.7 10*3/uL (1.4-4.0); Mean Corpuscular HGB Conc 32.3 GM/DL (32-36); Mean Corpuscular Hemoglobin 32 PG (27-34); Mean Corpuscular Volume 97.9 FL (87-102); Mean Platelet Volume 11.4 FL (9.6-12.0); Monocytes # 0.3 10*3/uL (0.11-0.8); Monocytes % 9.5 % (1.7-12.7); Neutrophils # 2.3 10*3/uL (1.4-7.4); Platelet Count 136 T/CUMM (130-400); Red Blood Count 2.34 MC/CUMM (3.8-5.5); Red Cell Distribution Width 14.6 % (9.3-17.3); White Blood Count 3.4 T/CUMM (4-12)
[2018-05-17 06:42] LABS: Hemoglobin 7.4 GM/DL (14.0-18.0)
[2018-05-17] MEDS: FERROUS SULFATE 325 MG TABLET PO SCH ×3 (07:01→21:22)
[2018-05-17] MEDS: LEVOTHYROXINE 100 MCG TABLET PO SCH (07:01)
[2018-05-17 07:19] LABS: Band Neutrophils 3 % (0-10); Burr Cells Slight; Hypochromasia 1+; Lymphocytes 18 % (20-55); Ovalocytes Slight; Platelet Estimate Normal; Segmented Neutrophils 72 % (50-85); Total Cells Counted 100
[2018-05-17] MEDS ORDERED: SODIUM CHLORIDE 0.9% 1,000 ML IV PRN (08:50)
[2018-05-17] MEDS: miSOPROStol 200 MCG TABLET PO SCH ×4 (09:04→21:20)
[2018-05-17] MEDS: ASPIRIN EC 81 MG TABLET PO SCH (09:04)
[2018-05-17] MEDS: amLODIPine 5 MG TABLET PO SCH (09:04)
[2018-05-17] MEDS: DOCUSATE SODIUM 100 MG CAPSULE PO SCH ×2 (09:05→21:20)
[2018-05-17] MEDS: CARVEDILOL 12.5 MG TABLET PO SCH ×2 (09:05→21:21)
[2018-05-17] MEDS: MULTIVITAMIN (CENTRUM) TABLET PO SCH (09:05)
[2018-05-17] MEDS: TAMSULOSIN 0.4 MG CAPSULE PO SCH ×2 (09:05→21:20)
[2018-05-17] MEDS: INSULIN LISPRO 100 UNIT/ML SUBCUT SCH ×3 (09:05→18:17)
[2018-05-17] MEDS: LACTOBACILLUS ACIDOPHILUS/BULGARICUS CAPLET PO SCH (11:33)
[2018-05-17] MEDS: PANTOPRAZOLE 40 MG TABLET PO SCH (11:33)
[2018-05-17] MEDS: POLYETHYLENE GLYCOL POWDER 17 GM PACK PO SCH (11:33)
[2018-05-17] MEDS: ENOXAPARIN 30 MG/0.3 ML SYRINGE SUBCUT SCH (15:30)
[2018-05-17] MEDS: ACETAMINOPHEN 325 MG TABLET PO PRN (17:26)
[2018-05-17 18:39] LABS: Apearance,Urine Slightly Hazy (Clear); Bilirubin,Urine Negative (Negative); Blood, Urine Moderate mg/dL (Negative); Glucose,Urine (UA) Negative (Negative); Ketones,Urine Negative (Negative); Nitrite,Urine Negative (Negative); Protein,Urine 100 MG/DL; RBC,Urine 1 /HPF (0-4); Squamous Epithelial Cell,Urine Occasional /HPF (0-10); Urine Color Yellow (Yellow); Urine Specific Gravity 1.013 (1.001-1.035); Urine Urobilinogen < 2.0 EU/DL (0.2-1.0); WBC,Urine 2 /HPF (0-6)
[2018-05-17] MEDS: MIRTAZAPINE 15 MG TABLET PO SCH (21:21)
[2018-05-17] MEDS: NITROFURANTOIN MACROCRYSTALS 100 MG CAPSULE PO SCH (21:21)
[2018-05-17] MEDS: GABAPENTIN 100 MG CAPSULE PO SCH (21:21)
[2018-05-17] MEDS: INSULIN GLARGINE 100 UNIT/ML SUBCUT SCH (21:24)
[2018-05-18 05:24] LABS: Hematocrit 22.9 VOL% (42.0-52.0); Hemoglobin 7.6 GM/DL (14.0-18.0); Immature Granulocytes % 1.1 %; Immature Granulocytes Absolute 0.04 #; Lymphocytes # 0.8 10*3/uL (1.4-4.0); Mean Corpuscular HGB Conc 33.2 GM/DL (32-36); Mean Corpuscular Hemoglobin 32 PG (27-34); Mean Corpuscular Volume 95.4 FL (87-102); Monocytes # 0.3 10*3/uL (0.11-0.8); Monocytes % 8.1 % (1.7-12.7); Neutrophils # 2.5 10*3/uL (1.4-7.4); Neutrophils % 68.8 % (38.7-73.9); Platelet Count 141 T/CUMM (130-400); Red Cell Distribution Width 14.8 % (9.3-17.3); White Blood Count 3.7 T/CUMM (4-12)
[2018-05-18 05:44] LABS: Calcium 7.2 MG/DL (8.5-10.1); Free T4 (Free Thyroxine) 0.69 NG/DL (0.76-1.46); Osmolality,Calculated 313.1 MOS/KG (273-304); Potassium 3.2 MMOL/L (3.5-5.1)
[2018-05-18] MEDS: SODIUM CHLORIDE 0.9% 1,000 ML IV SCH ×3 (06:04→15:08)
[2018-05-18] MEDS: FERROUS SULFATE 325 MG TABLET PO SCH ×2 (06:05→15:07)
[2018-05-18] MEDS: LEVOTHYROXINE 100 MCG TABLET PO SCH (06:05)
[2018-05-18] MEDS: DOCUSATE SODIUM 100 MG CAPSULE PO SCH ×2 (09:21→21:56)
[2018-05-18] MEDS: PANTOPRAZOLE 40 MG TABLET PO SCH (09:21)
[2018-05-18] MEDS: POTASSIUM CHLORIDE 20 MEQ TABLET PO PRN (09:21)
[2018-05-18] MEDS: CARVEDILOL 12.5 MG TABLET PO SCH ×2 (09:21→21:42)
[2018-05-18] MEDS: MULTIVITAMIN (CENTRUM) TABLET PO SCH (09:21)
[2018-05-18] MEDS: amLODIPine 5 MG TABLET PO SCH (09:21)
[2018-05-18] MEDS: miSOPROStol 200 MCG TABLET PO SCH ×4 (09:21→21:42)
[2018-05-18] MEDS: TAMSULOSIN 0.4 MG CAPSULE PO SCH ×2 (09:21→21:42)
[2018-05-18] MEDS: ASPIRIN EC 81 MG TABLET PO SCH (09:21)
[2018-05-18] MEDS: LACTOBACILLUS ACIDOPHILUS/BULGARICUS CAPLET PO SCH (09:22)
[2018-05-18] MEDS: INSULIN LISPRO 100 UNIT/ML SUBCUT SCH ×3 (09:22→17:31)
[2018-05-18] MEDS: POLYETHYLENE GLYCOL POWDER 17 GM PACK PO SCH (09:22)
[2018-05-18] MEDS: MEGESTROL 40 MG TABLET PO SCH ×2 (15:08→21:42)
[2018-05-18] MEDS: ACETAMINOPHEN 325 MG TABLET PO PRN ×2 (15:08→21:41)
[2018-05-18] MEDS: ENOXAPARIN 30 MG/0.3 ML SYRINGE SUBCUT SCH ×2 (15:09→15:13)
[2018-05-18] MEDS: PIPERACILLIN/TAZOBACTAM 3,375 MG in SODIUM CHLORIDE 0.9% 100 ML IV SCH (15:09)
[2018-05-18 15:23] LABS: Apearance,Urine Slightly Hazy (Clear); Bacteria,Urine Many /HPF (Few); Bilirubin,Urine Negative (Negative); Blood, Urine Small mg/dL (Negative); Glucose,Urine (UA) Negative (Negative); Ketones,Urine Negative (Negative); Mucus,Urine Occasional /LPF (Occasional); Nitrite,Urine Negative (Negative); Protein,Urine 30 MG/DL; Squamous Epithelial Cell,Urine Occasional /HPF (0-10); Urine Color Amber (Yellow); Urine Specific Gravity 1.012 (1.001-1.035); Urine Urobilinogen < 2.0 EU/DL (0.2-1.0); WBC,Urine 2 /HPF (0-6)
[2018-05-18] MEDS: METOCLOPRAMIDE 10 MG/2 ML VIAL IV SCH ×2 (17:31→23:32)
[2018-05-18] MEDS: GABAPENTIN 100 MG CAPSULE PO SCH (21:42)
[2018-05-18] MEDS: NITROFURANTOIN MACROCRYSTALS 100 MG CAPSULE PO SCH (21:42)
[2018-05-18] MEDS: INSULIN GLARGINE 100 UNIT/ML SUBCUT SCH (21:56)
[2018-05-18] MEDS: MIRTAZAPINE 15 MG TABLET PO SCH (21:56)
[2018-05-19 01:48] LABS: Platelet Estimate Normal
[2018-05-19] MEDS: PIPERACILLIN/TAZOBACTAM 3,375 MG in SODIUM CHLORIDE 0.9% 100 ML IV SCH (02:07)
[2018-05-19] MEDS: SODIUM CHLORIDE 0.9% 1,000 ML IV SCH ×3 (02:08→11:30)
[2018-05-19 05:04] LABS: Hematocrit 19.5 VOL% (42.0-52.0); Immature Granulocytes % 0.9 %; Immature Granulocytes Absolute 0.04 #; Lymphocytes # 0.7 10*3/uL (1.4-4.0); Lymphocytes % 17.3 % (21.2-54.2); Mean Corpuscular HGB Conc 31.8 GM/DL (32-36); Mean Corpuscular Hemoglobin 31 PG (27-34); Mean Corpuscular Volume 97.5 FL (87-102); Mean Platelet Volume 11.1 FL (9.6-12.0); Monocytes # 0.3 10*3/uL (0.11-0.8); Monocytes % 7.2 % (1.7-12.7); Neutrophils # 3.2 10*3/uL (1.4-7.4); Neutrophils % 74.6 % (38.7-73.9); Platelet Count 123 T/CUMM (130-400); Red Cell Distribution Width 14.9 % (9.3-17.3); White Blood Count 4.3 T/CUMM (4-12)
[2018-05-19] MEDS: METOCLOPRAMIDE 10 MG/2 ML VIAL IV SCH (05:07)
[2018-05-19 05:32] LABS: Hemoglobin 6.2 GM/DL (14.0-18.0)
[2018-05-19] MEDS: LEVOTHYROXINE 100 MCG TABLET PO SCH (06:15)
[2018-05-19 06:37] LABS: Potassium 3.2 MMOL/L (3.5-5.1)
[2018-05-19] MEDS ORDERED: ACETAMINOPHEN 325 MG TABLET PO ONE (06:44)
[2018-05-19] MEDS ORDERED: SODIUM CHLORIDE 0.9% 1,000 ML IV PRN (06:44)
[2018-05-19] MEDS ORDERED: diphenhydrAMINE 50 MG/1 ML VIAL IV PRN (06:44)
[2018-05-19 07:18] LABS: Band Neutrophils 3 % (0-10); Lymphocytes 18 % (20-55); Segmented Neutrophils 75 % (50-85); Total Cells Counted 100
[2018-05-19 07:19] LABS: Burr Cells 1+; Hypochromasia 1+; Platelet Estimate Normal
[2018-05-19] MEDS: PANTOPRAZOLE 40 MG TABLET PO SCH (08:24)
[2018-05-19] MEDS: MULTIVITAMIN (CENTRUM) TABLET PO SCH (08:24)
[2018-05-19] MEDS: miSOPROStol 200 MCG TABLET PO SCH (08:24)
[2018-05-19] MEDS ORDERED: NOREPINEPHRINE 8 MG in SODIUM CHLORIDE 0.9% 242 ML IV PRN (08:24)
[2018-05-19] MEDS: ASPIRIN EC 81 MG TABLET PO SCH (08:24)
[2018-05-19] MEDS: POTASSIUM CHLORIDE 20 MEQ TABLET PO PRN (08:24)
[2018-05-19] MEDS: MEGESTROL 40 MG TABLET PO SCH (08:24)
[2018-05-19] MEDS ORDERED: VANCOMYCIN INJ 750 MG in SODIUM CHLORIDE 0.9% 250 ML IV SCH (09:00)
[2018-05-19] MEDS ORDERED: LORazepam 2 MG/1 ML VIAL IV PRN (09:44)
[2018-05-19] MEDS: INSULIN LISPRO 100 UNIT/ML SUBCUT SCH (11:30)
[2018-05-19] MEDS: LACTOBACILLUS ACIDOPHILUS/BULGARICUS CAPLET PO SCH (11:30)
[2018-05-19] MEDS: DOCUSATE SODIUM 100 MG CAPSULE PO SCH (11:31)
[2018-05-19] MEDS: POLYETHYLENE GLYCOL POWDER 17 GM PACK PO SCH (11:31)
[2018-05-19] MEDS: amLODIPine 5 MG TABLET PO SCH (11:31)
[2018-05-19] MEDS: SODIUM BICARB INJ 50 MEQ in SODIUM CHLORIDE 0.45% 1,000 ML IV SCH ×2 (12:15→22:26)
[2018-05-19] MEDS: MORPHINE 4 MG/1 ML VIAL IV PRN ×2 (13:32→16:25)
[2018-05-20 08:10] VITALS: BP 88/45
== END 2018-05-20 13:58 | disposition hospice, inpatient (51) | DRG 682 ==
LOC: EDBD → EDUNIT# → N.ED 11:02 → N.5E 11:02 → SUATTDRO 14:58 → N.5E 17:55 → N.CC 05-19 08:22 → N.5E 05-19 10:45
PROVIDERS: ADMIT Internal Medicine; ATTEND Internal Medicine